=== PATIENT | female | born 2005 | race Caucasian/White ===

== ENCOUNTER 2024-09-06 11:08 | Emergency (ER) | payer OTHER, SELFPAY ==
--- OUTSIDE RECORDS SUMMARY | 2024-09-06 11:15 | XMS REPORT | Continuity of Care Document ---
Author Name Unknown Address [address] [place] [address] [facility] Address [address] [place] [address] Care Team Providers Care Clinical Data Management Manager Name Role Phone Kristopher Miramontes Primary Care Physician [phone] MARYLOU AMAYA Attending Clinician Unavailab MARYLOU Linda Attending Clinician Unavailab Marylou Linda DO Attending Clinician [phone] MARCOS DODD Attending Clinician Unavailable MARCOS DODD Attending Clinician Unavailable AKASH BERNAL Attending Clinician Unavailable Akash Bernal NP Attending Clinician [phone] LUIS CARLOS POSEY Attending Clinician Unavailable Luis Carlos Posey MD Attending Clinician [phone] Ishmael Scott Attending Clinician [phone] Joy Andrews MD Attending Clinician [phone] JOY ANDREWS Attending Clinician Unavailab SAAD Panda Attending Clinician Unavailable Saad Nance Attending Clinician [phone] Ishmael DOMÍNGUEZ Attending Clinician Unavailable LUIS CARLOS POSEY Admitting Clinician Unavailable Ishmael DOMÍNGUEZ Admitting Clinician Unavailable SAAD WATTS Admitting Clinician Unavailable Payers Payer Name Policy Type Policy Number Effective Date Expirati on Date Source [facility] [id number] 2022 00:00:00 Allergies, Adverse Reactions, Alerts Allergy Name Allergy Type Status Severity Reaction(s) Onset Date Inactive Date Treating Clinician Comments Source NO KNOWN ALLERGIE S Drug Class Active [facility] Social History Social Habit Start Date Stop Date Quantity Comments Source [facility] Exposure to SARS-CoV-2 (event) 2022-10-01 00:00:00 2022-10-11 10:02:00 Not sure [facility] Sex assigned at 2004 00:00:00 2005 00:00:00 [facility] Smoking Status Start Date Stop Date Source Tobacco smoking consumption unknown [facility] Medications Ordered Medication Name Filled Medication Name Start Date Stop Date Current Medication? Ordering Clinician Indication Dosage Frequency Signature (SIG) Comments Components Source ondansetron (ZOFRAN-ODT ) disintegrat ing tablet 4 mg 09-06 14:00: 00 09-06 13:03 :00 No 4mg 4 mg, Oral, ONCE, 1 dose, On Sat09/06/24 at 0900, Routine [facility] NaCl 0.9% (NS) IV infusion 1,000 mL 2022-05 16:45: 00 03-10 17:16 :00 No 1000mL at 999 mL/hr, Intravenou s, ONCE, 1 dose, On Sat03/10/23 at 1145, Routine [facility] dicyclomine (BENTYL) injection 20 mg 2022-05 15:00: 00 03-10 14:58 :00 No 20mg 20 mg, Intramuscu lar, ONCE NOW, 1 dose, On Sat03/10/23 at 1000, Routine [facility] NaCl 0.9% (NS) bolus infusion 1,000 mL 2022-05 15:00: 00 03-10 16:10 :00 No 1000mL at 999 mL/hr, 1,000 mL, IV Infusion, ONCE, 1 dose, On Sat03/10/23 at 1000, JUAN JOSE [facility] iopamidol (ISOVUE 370-500 mL) injection 45 mL 02-10 20:48: 00 02-10 20:48 :00 No [id number] 45mL 45 mL, Intravenou s, ONCE, 1 dose, On Sat02/10/23 at 1600, Routine [facility] NaCl 0.9% (NS) bolus infusion 1,000 mL 02-10 19:30: 00 02-10 19:51 :00 No 1000mL at 999 mL/hr, 1,000 mL, IV Infusion, ONCE, 1 dose, On Sat02/10/23 at 1430, JUAN JOSE [facility] ondansetron (ZOFRAN (PF)) injection 4 mg 02-10 19:15: 00 02-10 19:06 :00 No 4mg 4 mg, Slow IV Push, ONCE, 1 dose, On Sat02/10/23 at 1415, [facility] ondansetron 4 mg disintegrat ing tablet 02-10 00:00: 00 Yes [id number] 4mg Take 1 tablet by mouth every 8 (eight) hours as needed for Nausea and Vomiting (N/V). [facility] NaCl 0.9% (NS) bolus infusion 1,000 mL 01-15 06:30: 00 01-15 07:30 :00 No 1000mL at 999 mL/hr, 1,000 mL, IV Infusion, ONCE, 1 dose, On Sat01/15/23 at 0130, STAT [facility] ketorolac (TORADOL) injection 15 mg 01-15 06:30: 00 01-15 05:45 :00 No 15mg 15 mg, Slow IV Push, ONCE, 1 dose, On Sat01/15/23 at 0130, JUAN JOSE [facility] Nitrofurant oin&Nit. Macrocryst 100 mg capsule 01-15 00:00: 00 01-21 04:59 :00 No [id number] 100mg Take 1 capsule by mouth in the morning and 1 capsule in the evening. Do all this for 5 days. [facility] dicyclomine 20 mg tablet 01-14 00:00: 00 Yes [id number] 20mg Take 1 tablet by mouth 4 (four) times daily as needed for Abdominal pain. [facility] iopamidol (ISOVUE 300-500 mL) injection 75 mL 01-13 22:15: 00 01-13 22:15 :00 No [id number] 75mL 75 mL, Intravenou s, ONCE, 1 dose, On 01/13/23 at 1715, Routine [facility] NaCl 0.9% (NS) bolus infusion 1,000 mL 01-13 21:30: 00 01-13 23:16 :00 No 1000mL at 999 mL/hr, 1,000 mL, IV Infusion, ONCE, 1 dose, On 01/13/23 at 1630, STAT [facility] proMETHazin e (PHENERGAN) 25 mg in NaCl 0.9% (NS) 50 mL IV piggyback 01-13 20:30: 00 01-13 20:48 :00 No 25mg 25 mg, IV Piggyback, ONCE, 1 dose, On 01/13/23 at 1530, JUAN JOSE [facility] proMETHazin e 25 mg tablet 01-13 00:00: 00 Yes [id number] 25mg Take 1 tablet by mouth every 6 (six) hours as needed for Nausea and Vomiting (N/V). [facility] iopamidol (ISOVUE 370-500 mL) injection 100 mL 11-18 04:15: 00 11-18 04:15 :00 No [id number] 100mL 100 mL, Intravenou s, ONCE, 1 dose, On 11/17/22 at 2315, Routine [facility] ketorolac (TORADOL) injection 15 mg 11-18 03:15: 00 11-18 02:20 :00 No 15mg 15 mg, Slow IV Push, ONCE, 1 dose, On 11/17/22 at 2215, JUAN JOSE [facility] morpHINE (2 mg/mL) injection 4 mg 11-18 02:00: 00 11-18 02:00 :00 No 4mg 4 mg, Slow IV Push, ONCE, 1 dose, On 11/17/22 at 2100, STAT [facility] NaCl 0.9% (NS) bolus infusion 1,000 mL 11-18 01:45: 00 11-18 02:18 :00 No 1000mL at 999 mL/hr, 1,000 mL, IV Infusion, ONCE, 1 dose, On 11/17/22 at 2045, STAT [facility] ondansetron (ZOFRAN (PF)) injection 4 mg 11-18 01:45: 00 11-18 00:53 :00 No 4mg 4 mg, Slow IV Push, ONCE, 1 dose, On 11/17/22 at 2045, JUAN JOSE [facility] ondansetron 4 mg disintegrat ing tablet 11-17 00:00: 00 02-10 00:00 :00 No [id number] 4mg Take 1 tablet by mouth every 8 (eight) hours as needed for Nausea and Vomiting (N/V). [facility] ketorolac (TORADOL) injection 15 mg 10-11 16:45: 00 10-11 15:52 :00 No 15mg 15 mg, Slow IV Push, ONCE, 1 dose, On Evelina 10/11/22 at 1145, JUAN JOSE [facility] NaCl 0.9% (NS) bolus infusion 1,000 mL 10-11 16:45: 00 10-11 16:12 :00 No 1000mL at 999 mL/hr, 1,000 mL, IV Infusion, ONCE, 1 dose, On Evelina 10/11/22 at 1145, STAT [facility] ondansetron (ZOFRAN-ODT ) disintegrat ing tablet 4 mg 10-11 16:15: 00 10-11 15:17 :00 No 4mg 4 mg, Oral, ONCE, 1 dose, On Evelina 10/11/22 at 1115, Routine [facility] haloperidol lactate (HALDOL) injection 2.5 mg 18 15:45: 00 10-11 15:53 :00 No 2.5mg 2.5 mg, Intravenou s, ONCE, 1 dose, On Evelina 10/11/22 at 1045, [facility] haloperidol lactate (HALDOL) injection 2.5 mg 07-27 05:45: 00 07-27 05:38 :00 No 2.5mg 2.5 mg, Intravenou s, ONCE, 1 dose, On Evelina 07/26/22 at 2345, [facility] metoclopram yeimi HCl (REGLAN) injection 10 mg 07-27 05:45: 00 07-27 05:38 :00 No 10mg 10 mg, Slow IV Push, ONCE, 1 dose, On Evelina 07/26/22 at 2345, [facility] NaCl 0.9% (NS) bolus infusion 1,000 mL 07-27 05:30: 00 07-27 07:07 :00 No 1000mL at 999 mL/hr, 1,000 mL, IV Infusion, ONCE, 1 dose, On Evelina 07/26/22 at 2330, [facility] ondansetron (ZOFRAN (PF)) injection 4 mg 07-27 05:00: 00 07-27 05:00 :00 No 4mg 4 mg, Slow IV Push, ONCE, 1 dose, On Evelina 07/26/22 at 2300, [facility] Vital Signs Vital Name Observation Time Observation Value Comments S ource Systolic blood pressure 2024-09-06 12:59:00 140 [facility]Hg[facility] Di[facility] blood pressure 2024-09-06 12:59:00 78 mm[Hg] [facility] Heart rate 2024-09-06 12:59:00 72 /min [facility] Body temperature 2024-09-06 12:59:00 36.5 Ronna [facility] Respiratory rate 2024-09-06 12:59:00 16 /min [facility] Oxygen saturation in Arterial blood by Pulse oximetry 2024-09-06 12:59:00 100 /min [facility] Systolic blood pressure 2023-03-10 17:00:00 100 mm[Hg] [facility] Diastolic blood pressure 2023-03-10 17:00:00 72 mm[Hg] [facility] Heart rate 2023-03-10 17:00:00 60 /min [facility] Body temperature 2023-03-10 17:00:00 37.5 Ronna [facility] Respiratory rate 2023-03-10 17:00:00 18 /min [facility] Oxygen saturation in Arterial blood by Pulse oximetry 2023-03-10 17:00:00 99 /min [facility] Body height 2023-03-10 13:25:00 170.2 cm [facility] Body weight 2023-03-10 13:25:00 52.164 kg [facility] BMI 2023-03-10 13:25:00 18.01 kg/m2 [facility] Body mass index (BMI) [Percentile] Per age and sex 2023-03-10 13:25:00 7.10 % [facility] Systolic blood pressure 2023-02-10 20:00:00 142 mm[Hg] [facility] Diastolic blood pressure 2023-02-10 20:00:00 96 mm[Hg] [facility] Heart rate 2023-02-10 20:00:00 94 /min [facility] Respiratory rate 2023-02-10 20:00:00 19 /min [facility] Oxygen saturation in Arterial blood by Pulse oximetry 2023-02-10 20:00:00 99 /min [facility] Body temperature 2023-02-10 18:00:00 36.94 Ronna [facility] Body height 2023-02-10 18:00:00 175.3 cm [facility] Body weight 2023-02-10 18:00:00 54.341 kg [facility] BMI 2023-02-10 18:00:00 17.69 kg/m2 [facility] Body mass index (BMI) [Percentile] Per age and sex 2023-02-10 18:00:00 4.99 % [facility] Systolic blood pressure 2023-01-15 09:00:00 105 mm[Hg] [facility] Diastolic blood pressure 2023-01-15 09:00:00 60 mm[Hg] [facility] Heart rate 2023-01-15 09:00:00 52 /min [facility] Respiratory rate 2023-01-15 09:00:00 22 /min [facility] Oxygen saturation in Arterial blood by Pulse oximetry 2023-01-15 09:00:00 99 /min [facility] Body temperature 2023-01-15 04:14:00 37.28 Ronna [facility] Body height 2023-01-15 04:14:00 175.3 cm [facility] Body weight 2023-01-15 04:14:00 52.799 kg [facility] BMI 2023-01-15 04:14:00 17.19 kg/m2 [facility] Body mass index (BMI) [Percentile] Per age and sex 2023-01-15 04:14:00 2.55 % [facility] Systolic blood pressure 2023-01-14 16:45:00 123 mm[Hg] [facility] Diastolic blood pressure 2023-01-14 16:45:00 73 mm[Hg] [facility] Heart rate 2023-01-14 16:45:00 57 /min [facility] Body temperature 2023-01-14 16:45:00 37.33 Ronna [facility] Respiratory rate 2023-01-14 16:45:00 14 /min [facility] Body height 2023-01-14 16:45:00 175.3 cm [facility] Body weight 2023-01-14 16:45:00 58.968 kg [facility] BMI 2023-01-14 16:45:00 19.20 kg/m2 [facility] Body mass index (BMI) [Percentile] Per age and sex 2023-01-14 16:45:00 19.85 % [facility] Oxygen saturation in Arterial blood by Pulse oximetry 2023-01-14 16:45:00 99 /min [facility] Systolic blood pressure 2023-01-14 00:00:00 114 mm[Hg] [facility] Diastolic blood pressure 2023-01-14 00:00:00 67 mm[Hg] [facility] Heart rate 2023-01-14 00:00:00 57 /min [facility] Respiratory rate 2023-01-14 00:00:00 16 /min [facility] Oxygen saturation in Arterial blood by Pulse oximetry 2023-01-14 00:00:00 98 /min [facility] Body temperature 2023-01-13 19:34:00 36.5 Ronna [facility] Body height 2023-01-13 19:34:00 175.3 cm [facility] Body weight 2023-01-13 19:34:00 58.968 kg [facility] BMI 2023-01-13 19:34:00 19.20 kg/m2 [facility] Body mass index (BMI) [Percentile] Per age and sex 2023-01-13 19:34:00 19.86 % [facility] Systolic blood pressure 2022-11-18 04:10:00 98 mm[Hg] [facility] Diastolic blood pressure 2022-11-18 04:10:00 61 mm[Hg] [facility] Heart rate 2022-11-18 04:10:00 71 /min [facility] Body temperature 2022-11-18 04:10:00 37 Ronna [facility] Oxygen saturation in Arterial blood by Pulse oximetry 2022-11-18 04:10:00 97 /min [facility] Respiratory rate 2022-11-18 02:22:00 16 /min [facility] Body weight 2022-11-17 23:13:00 63.504 kg [facility] Systolic blood pressure 2022-10-11 16:12:00 133 mm[Hg] [facility] Diastolic blood pressure 2022-10-11 16:12:00 95 mm[Hg] [facility] Heart rate 2022-10-11 16:12:00 84 /min [facility] Respiratory rate 2022-10-11 16:12:00 16 /min [facility] Oxygen saturation in Arterial blood by Pulse oximetry 2022-10-11 16:12:00 98 /min [facility] Body temperature 2022-10-11 15:05:00 37 Ronna [facility] Body height 2022-10-11 15:05:00 175.3 cm [facility] Body weight 2022-10-11 15:05:00 63.504 kg [facility] BMI 2022-10-11 15:05:00 20.67 kg/m2 [facility] Body mass index (BMI) [Percentile] Per age and sex 2022-10-11 15:05:00 40.96 % [facility] Systolic blood pressure 2022-07-27 07:00:00 110 mm[Hg] [facility] Diastolic blood pressure 2022-07-27 07:00:00 68 mm[Hg] [facility] Heart rate 2022-07-27 07:00:00 60 /min [facility] Body temperature 2022-07-27 07:00:00 37.28 Ronna [facility] Respiratory rate 2022-07-27 07:00:00 17 /min [facility] Oxygen saturation in Arterial blood by Pulse oximetry 2022-07-27 07:00:00 96 /min [facility] Body height 2022-07-27 04:37:00 175.3 cm [facility] Body weight 2022-07-27 04:37:00 56.337 kg [facility] BMI 2022-07-27 04:37:00 18.34 kg/m2 [facility] Body mass index (BMI) [Percentile] Per age and sex 2022-07-27 04:37:00 11.37 % [facility] Procedures Procedure Date / Time Performed Performing Clinician Source HB ECG ROUTINE & RHYTHM STRIP 2023-03-10 15:10:56 Akash Bernal [facility] URINALYSIS 2023-03-10 14:53:00 Akash Bernal [facility] POCT TEST 2023-03-10 14:53:00 Akash Bernal [facility] URINE DRUG (IMMUNOASSAY) - COMPREHENSIVE DRUG SCREEN W/O REFLEX 2023-03-10 14:53:00 Akash Bernal [facility] AC ABG + LACTIC ACID 2023-03-10 14:36:00 Selina Bernal [facility] CREATINE KINASE 2023-03-10 14:25:00 Akash Bernal U [facility] LIPASE 2023-03-10 14:25:00 Akash Bernal [facility] COMP. METABOLIC PANEL ([id number]) 2023-03-10 14:25:00 Akash Bernal [facility] CBC WITH DIFF 2023-03-10 14:25:00 Akash Bernal [facility] CONSENT/REFUSAL FOR DIAGNOSIS AND TREATMENT 2023-03-10 13:19:54 Doctor Unassigned, [place] [facility] US OVARY TORSION 2023-02-10 22:25:00 Luis Carlos Posey [facility] CT ABDOMEN PELVIS W CONTRAST 2023-02-10 20:53:59 Luis Carlos Posey [facility] URINE DRUG (IMMUNOASSAY) - COMPREHENSIVE DRUG SCREEN 2023-02-10 20:28:00 Luis Carlos Posey [facility] URINALYSIS 2023-02-10 20:28:00 Luis Carlos [facility] TEST, SERUM 2023-02-10 19:51:00 Luis Carlos Posey [facility] COMP. METABOLIC PANEL ([id number]) 2023-02-10 18:57:00 Luis Carlos Posey [facility] CBC WITH DIFF 2023-02-10 18:57:00 Luis Carlos Posey [facility] CONSENT/REFUSAL FOR DIAGNOSIS AND TREATMENT 2023-02-10 17:57:28 Doctor Unassigned, [place] [facility] US OVARY TORSION 2023-01-15 08:49:25 Ishmael Domínguez [facility] COMP. METABOLIC PANEL ([id number]) 2023-01-15 05:37:00 Ishmael Domínguez [facility] CBC WITH DIFF 2023-01-15 05:37:00 Ishmael Domínguez [facility] URINALYSIS 2023-01-15 05:37:00 [facility] CONSENT/REFUSAL FOR DIAGNOSIS AND TREATMENT 2023-01-15 04:02:38 Doctor Unassigned, [place] [facility] CONSENT/REFUSAL FOR DIAGNOSIS AND TREATMENT 2023-01-14 17:36:09 Doctor Unassigned, [place] [facility] CONSENT/REFUSAL FOR DIAGNOSIS AND TREATMENT 2023-01-14 16:41:53 Doctor Unassigned, [place] [facility] CT ABDOMEN PELVIS W CONTRAST 2023-01-13 21:22:33 Saad Watts [facility] URINALYSIS 2023-01-13 20:48:00 Saad [facility] POCT TEST 2023-01-13 20:47:00 Saad Watts [facility] LIPASE 2023-01-13 20:39:00 Saad [facility] COMP. METABOLIC PANEL ([id number]) 2023-01-13 20:39:00 Saad Watts [facility] CBC WITH DIFF 2023-01-13 20:39:00 Saad Watts [facility] CONSENT/REFUSAL FOR DIAGNOSIS AND TREATMENT 2023-01-13 19:21:26 Doctor Unassigned, [place] [facility] CT ABDOMEN PELVIS W CONTRAST 2022-11-18 03:17:05 Ishmael Domínguez [facility] XR CHEST 1 VW 2022-11-18 03:08:22 Ishmael Domínguez [facility] POCT TEST 2022-11-18 01:00:00 Ishmael Domínguez e [facility] MAGNESIUM 2022-11-18 00:47:00 [facility] COMP. METABOLIC PANEL ([id number]) 2022-11-18 00:47:00 Ishmael Domínguez [facility] CBC WITH DIFF 2022-11-18 00:47:00 JoeyIshmael arango Univ [facility] URINALYSIS 2022-11-18 00:47:00 Ishmael Domínguez [facility] LIPASE 2022-11-18 00:47:00 Ishmael Domínguez [facility] CONSENT/REFUSAL FOR DIAGNOSIS AND TREATMENT 2022-11-17 23:10:12 Doctor Unassigned, [place] [facility] CBC WITH DIFF 2022-10-11 15:44:00 Ishmael Domínguez [facility] POCT TEST 2022-10-11 15:13:00 Ishmael Domínguez [facility] URINALYSIS 2022-10-11 15:12:00 Ishmeal Domíngueze [facility] CONSENT/REFUSAL FOR DIAGNOSIS AND TREATMENT 2022-10-11 14:57:40 Doctor Unassigned, [place] [facility] POCT TEST 2022-07-27 06:05:00 Esme Amaya ra [facility] URINALYSIS 2022-07-27 06:03:00 [facility]REATMENT 2022-07-27 04:23:13 Doctor Unassigned, [place] [facility] NOTICE OF PRIVACY PRACTICES 2022-07-27 04:22:45 Doctor Unassigned, [place] [facility] Encounters Start Date/Time End Date/Time Encounter Type Admission Type Attending [facility] Care Facility Care Department Encounter ID Source 2024-09-06 08:00:00 2024-09-06 09:27:00 Emergency X MARYLOU AMAYA [facility] [id number] [facility] 2024-09-06 08:00:00 2024-09-06 09:27:00 Emergency Marylou Amaya AT [facility] [id number] 350.1.13.10 4.2.7.2.686 [id number] [facility] 2024-08-06 12:50:00 2024-08-06 14:44:00 Emergency X MARCOS DODD ERICCA [facility] ERT [id number] [facility] 2023-03-10 08:26:00 2023-03-10 12:18:00 Emergency X AKASH BERNAL [facility] ERT [id number] [facility] 2023-03-10 08:26:00 2023-03-10 12:18:00 Emergency Akash Bernal [facility] [id number] 350.1.13.10 4.2.7.2.686 [id number] [facility] 2023-02-10 13:02:00 2023-02-10 18:18:00 Emergency X LUIS CARLOS POSEY [facility] ERT [id number] [facility] 2023-02-10 13:02:00 2023-02-10 18:18:00 Emergency Luis Carlos Posey [facility] [id number] 350.1.13.10 4.2.7.2.686 [id number] [facility] 2023-01-14 23:18:00 2023-01-15 04:40:00 Emergency Ishmael Dom[facility]nguez [facility] [id number] 350.1.13.10 4.2.7.2.686 [id number] [facility] 2023-01-14 23:18:00 2023-01-15 04:40:00 Emergency X JOY ANDREWS [facility] ERT [id number] [facility] 2023-01-14 11:48:00 2023-01-14 13:39:00 Emergency X SAAD WATTS [facility] ERT [id number] [facility] 2023-01-14 11:48:00 2023-01-14 13:39:00 Emergency Saad Watts [facility] [id number] 350.1.13.10 4.2.7.2.686 [id number] [facility] 2023-01-13 14:37:00 2023-01-13 19:09:00 Emergency X SAAD WATTS [facility] ERT [id number] [facility] 2023-01-13 14:37:00 2023-01-13 19:09:00 Emergency Saad Watts S [facility] [id number] 350.1.13.10 4.2.7.2.686 [id number] [facility] 2022-11-17 18:15:00 2022-11-17 23:22:00 Emergency X Ishmael DOMÍNGUEZ [facility] ERT [id number] [facility] 2022-11-17 18:15:00 2022-11-17 23:22:00 Emergency Ishmael Domínguez [facility] 1.2840.114 350.1.13.10 4.2.7.2.686 [id number] [facility] 2022-10-11 10:09:00 2022-10-11 11:41:00 Emergency X Ishmael DOMÍNGUEZ [facility] ERT [id number] [facility] 2022-10-11 10:09:00 2022-10-11 11:41:00 Emergency Ishmael Domínguez [facility] [id number] 350.1.13.10 4.2.7.2.686 [id number] [facility] 2022-07-26 22:43:00 2022-07-27 01:14:00 Emergency X MARYLOU AMAYA [facility] ERT [id number] [facility] 2022-07-26 22:43:00 2022-07-27 01:14:00 Emergency Marylou Amaya [facility] [id number] 350.1.13.10 4.2.7.2.686 [id number] [id number] [facility] Results Test Description Test Time Test Comments Results Result Co mments Source [facility]53* Test Item Value Reference Range Interpretation Comme nts LIPASE (test code = 7861600432) 48 U/L 0-220 Lab Interpretation (test cod e = 93270-9) Normal [facility] [id number] 14:56:53* Test Item Value Reference Range Interpretation Comme nts CK (test code = 8555286284) 58 U/L 33-194 Lab Interpretation (test cod e = 73309-8) [facility] [id number] 14:53:00* Test Item Value Reference Range Interpretation Comme nts POCT PREG (test code = 1605) Negative On board controls acceptable with C Line (test code = 3574) Yes POCT PREG LOT # (test code = 3575) [id number] POCT PREG TEST DATE ( test code = 3576) 05/29/2024 Lab Interpretation (test cod e = 52557-5) [facility] [id number] 14:43:54* Test Item Value Reference Range Interpretation Comme nts WBC (test code = 6690-2) 14.74 See_Comment H [Automated message] The system which generated this result transmitted reference range: 4.50 - 13.50 10*3/?L. The reference range was not used to interpret this result as normal/abnormal. RBC (test code = 789-8) 4.09 See_Comment L [Automated message] The system which generated this result transmitted reference range: 4.10 - 5.10 10*6/?L. The reference range was not used to interpret this result as normal/abnormal. HGB (test code = 718-7) 13.4 g/dL 12.0-16.0 HCT (test code = 4544-3) 39.2 % 36.0-45.0 MCV (test code = 787-2) 95.8 fL 78.0-95.0 H MCH (test code = 785-6) 32.8 pg 26.0-32.0 H MCHC (test code = 786-4) 34.2 g/dL 32.0-36.0 RDW-SD (test code = 89003-6) 41.4 fL 38.5-49.0 RDW-CV (test code = 788-0) 11.8 % 11.5-14.0 PLT (test code = 777-3) 304 See_Comment [Automated message] The system which generated this result transmitted reference range: 135 - 361 10*3/?L. The reference range was not used to interpret this result as normal/abnormal. MPV (test code = 27526-2) 10.9 fL 9.4-13.3 NRBC/100 WBC (test code = 1015310515) 0.0 See_Comment [Automated message] The system which generated this result transmitted reference range: 0.0 - 10.0 /100 WBCs. The reference range was not used to interpret this result as normal/abnormal. NRBC x10^3 (test code = 7791176408) See_Comment [Automated message] The system which generated this result transmitted reference range: 10*3/?L. The reference range was not used to interpret this result as normal/abnormal. GRAN MAT (NEUT) % (test code = 770-8) 90.8 % IMM GRAN % (test code = 5520201305) 0.30 % LYMPH % (test code = 736-9) 5.3 % MONO % (test code = 5905-5) 3.3 % EOS % (test code = 713-8) 0.0 % BASO % (test code = 706-2) 0.3 % GRAN MAT x10^3(ANC) (test code = 5747249247) 13.38 10*3/uL 1.50-10.30 H IMM GRAN x10^3 (test code = 7886032749) 0.05 10*3/uL 0.00-0.06 LYMPH x10^3 (test code = 731-0) 0.78 10*3/uL 0.70-7.40 MONO x10^3 (test code = 742-7) 0.49 10*3/uL 0.00-0.50 EOS x10^3 (test code = 711-2) 0.00-0.40 BASO x10^3 (test code = 704-7) 0.04 10*3/uL 0.00-0.10 Lab Interpretation (test code = 20693-7) [facility] [id number] 20:11:53* Test Item Value Reference Range Interpretation Comme nts PREG SERUM (test code = 4645807763) Negative BREANNA (test code = BREANNA) Less than 10 IU/L. ?If low titer or ectopic is suspected, resubmit specimen in 48-72 hours. [facility]. METABOLIC PANEL ([id number])2023-02-10 19:31:01* Test Item Value Reference Range Interpretation Comme nts NA (test code = 7170150753) 140 mmol/L 135-145 K (test code = 3901552417) 4.0 mmol/L 3.5-5.0 CL (test code = 7707524235) 111 mmol/L 98-108 H CO2 TOTAL (test code = 2989138029) 17 mmol/L 23-31 L AGAP (test code = 4853913445) 12 2-16 BUN (test code = 1615926157) 8 mg/dL 7-23 GLUCOSE (test code = 4830311640) 136 mg/dL 70-110 H CREATININE (test code = 1604495291) 0.70 mg/dL 0.50-1.04 TOTAL BILI (test code = 7650118394) 0.3 mg/dL 0.1-1.1 CALCIUM (test code = 6900886743) 9.8 mg/dL 8.6-10.6 T PROTEIN (test code = 8492749563) 8.0 g/dL 6.3-8.2 ALBUMIN (test code = 7496314560) 4.7 g/dL 3.5-5.0 ALK PHOS (test code = 1919431154) 92 U/L 34-122 ALTv (test code = 1742-6) 17 U/L 5-35 AST(SGOT) (test code = 3370875267) 26 U/L 13-40 eGFR (test code = 4939048219) 109.0 mL/min/1.73m2 BREANNA (test code = BREANNA) Association of Glomerular Filtration Rate (GFR) and Staging of Kidney Disease* + --+ --+ ------+| GFR (mL/min/1.73 m2) ?| With Kidney Damage ?| ?Without Kidney Damage+ --------+ --------+ +| ?>90 ?| ?Stage one ?| ? Normal ?+ ---+ ---+ -------+| ?60-89 ?| ?Stage two ?| ? Decreased GFR ? + --+ --+ ------+| ?30-59 ?| ?Stage three ?| ? Stage three ? + --+ --+ ------+| ?15-29 ?| ?Stage four ? | ? Stage four ?+ ---+ ---+ -------+| ?<15 (or dialysis) ? ?| ?Stage five ? | ? Stage five ?+ ---+ ---+ -------+ *Each stage assumes the associated GFR level has been in effect for at least three months. ?Stages 1 to 5, with or without kidney disease, indicate chronic kidney disease. Notes: Determination of stages one and two (with eGFR >59mL/min/1.73 m2) requires estimation of kidney damage for at least three months as defined by structural or functional abnormalities of the kidney, manifested by either:Pathological abnormalities or Markers of kidney damage (including abnormalities in the composition of the blood or urine or abnormalities in imaging tests). Lab Interpretation (test code = 29853-0) Abnormal [facility] WITH [id number] 19:20:02* Test Item Value Reference Range Interpretation Comme nts WBC (test code = 6690-2) 13.47 See_Comment [Automated message] The system which generated this result transmitted reference range: 4.50 - 13.50 10*3/?L. The reference range was not used to interpret this result as normal/abnormal. RBC (test code = 789-8) 4.46 See_Comment [Automated message] The system which generated this result transmitted reference range: 4.10 - 5.10 10*6/?L. The reference range was not used to interpret this result as normal/abnormal. HGB (test code = 718-7) 14.6 g/dL 12.0-16.0 HCT (test code = 4544-3) 42.4 % 36.0-45.0 MCV (test code = 787-2) 95.1 fL 78.0-95.0 H MCH (test code = 785-6) 32.7 pg 26.0-32.0 H MCHC (test code = 786-4) 34.4 g/dL 32.0-36.0 RDW-SD (test code = 07910-2) 42.3 fL 38.5-49.0 RDW-CV (test code = 788-0) 12.0 % 11.5-14.0 PLT (test code = 777-3) 315 See_Comment [Automated message] The system which generated this result transmitted reference range: 135 - 361 10*3/?L. The reference range was not used to interpret this result as normal/abnormal. MPV (test code = 30636-5) 10.3 fL 9.4-13.3 NRBC/100 WBC (test code = 8231886344) 0.0 See_Comment [Automated message] The system which generated this result transmitted reference range: 0.0 - 10.0 /100 WBCs. The reference range was not used to interpret this result as normal/abnormal. NRBC x10^3 (test code = 6287109084) See_Comment [Automated message] The system which generated this result transmitted reference range: 10*3/?L. The reference range was not used to interpret this result as normal/abnormal. GRAN MAT (NEUT) % (test code = 770-8) 78.0 % IMM GRAN % (test code = 0361213995) 0.40 % LYMPH % (test code = 736-9) 14.7 % MONO % (test code = 5905-5) 6.4 % EOS % (test code = 713-8) 0.2 % BASO % (test code = 706-2) 0.3 % GRAN MAT x10^3(ANC) (test code = 1988682769) 10.50 10*3/uL 1.50-10.30 H IMM GRAN x10^3 (test code = 1999251972) 0.06 10*3/uL 0.00-0.06 LYMPH x10^3 (test code = 731-0) 1.98 10*3/uL 0.70-7.40 MONO x10^3 (test code = 742-7) 0.86 10*3/uL 0.00-0.50 H EOS x10^3 (test code = 711-2) 0.03 10*3/uL 0.00-0.40 BASO x10^3 (test code = 704-7) 0.04 10*3/uL 0.00-0.10 Lab Interpretation (test code = 19857-0) [facility] ([id number])2023-01-15 06:02:07* Test Item Value Reference Range Interpretation Comme nts NA (test code = 5367519351) 143 mmol/L 135-145 K (test code = 1786709349) 3.7 mmol/L 3.5-5.0 CL (test code = 2776027860) 104 mmol/L 98-108 CO2 TOTAL (test code = 1822467761) 29 mmol/L 23-31 AGAP (test code = 5502248581) 10 2-16 BUN (test code = 0373637702) 19 mg/dL 7-23 GLUCOSE (test code = 6808303746) 104 mg/dL 70-110 CREATININE (test code = 9520836347) 0.80 mg/dL 0.50-1.04 TOTAL BILI (test code = 6287525206) 0.4 mg/dL 0.1-1.1 CALCIUM (test code = 4697768044) 9.6 mg/dL 8.6-10.6 T PROTEIN (test code = 0793933794) 7.7 g/dL 6.3-8.2 ALBUMIN (test code = 8109945944) 4.6 g/dL 3.5-5.0 ALK PHOS (test code = 3357092617) 59 U/L 34-122 ALTv (test code = 1742-6) 17 U/L 5-35 AST(SGOT) (test code = 7676098523) 24 U/L 13-40 eGFR (test code = 8096800583) 93.4 mL/min/1.73m2 BREANNA (test code = BREANNA) Association of Glomerular Filtration Rate (GFR) and Staging of Kidney Disease* + + +- +| GFR (mL/min/1.73 m2) ?| With Kidney Damage ?| ?Without Kidney Damage+ ------+ ----+ ------+| ?>90 ?| ?Stage one ?| ? Normal ?+ -+ + -+| ?60-89 ?| ?Stage two ?| ? Decreased GFR ? + + +- +| ?30-59 ?| ?Stage three ?| ? Stage three ? + + +- +| ?15-29 ?| ?Stage four ? | ? Stage four ?+ -+ + -+| ?<15 (or dialysis) ? ?| ?Stage five ? | ? Stage five ?+ -+ + -+ *Each stage assumes the associated GFR level has been in effect for at least three months. ?Stages 1 to 5, with or without kidney disease, indicate chronic kidney disease. Notes: Determination of stages one and two (with eGFR >59mL/min/1.73 m2) requires estimation of kidney damage for at least three months as defined by structural or functional abnormalities of the kidney, manifested by either:Pathological abnormalities or Markers of kidney damage (including abnormalities in the composition of the blood or urine or abnormalities in imaging tests). [facility] WITH [id number] 05:49:10* Test Item Value Reference Range Interpretation Comme nts WBC (test code = 6690-2) 10.32 See_Comment [Automated KSE] The system which generated this result transmitted reference range: 4.50 - 13.50 10*3/?L. The reference range was not used to interpret this result as normal/abnormal. RBC (test code = 789-8) 4.03 See_Comment L [Automated KSE] The system which generated this result transmitted reference range: 4.10 - 5.10 10*6/?L. The reference range was not used to interpret this result as normal/abnormal. HGB (test code = 718-7) 13.2 g/dL 12.0-16.0 HCT (test code = 4544-3) 38.8 % 36.0-45.0 MCV (test code = 787-2) 96.3 fL 78.0-95.0 H MCH (test code = 785-6) 32.8 pg 26.0-32.0 H MCHC (test code = 786-4) 34.0 g/dL 32.0-36.0 RDW-SD (test code = 29928-3) 43.1 fL 38.5-49.0 RDW-CV (test code = 788-0) 12.2 % 11.5-14.0 PLT (test code = 777-3) 269 See_Comment [Automated messa ge] The system which generated this result transmitted reference range: 135 - 361 10*3/?L. The reference range was not used to interpret this result as normal/abnormal. MPV (test code = 56948-2) 10.2 fL 9.4-13.3 NRBC/100 WBC (test code = 3726401762) 0.0 See_Comment [Automated iPrint ssage] The system which generated this result transmitted reference range: 0.0 - 10.0 /100 WBCs. The reference range was not used to interpret this result as normal/abnormal. NRBC x10^3 (test code = 5168837603) See_Comment [Automated messa ge] The system which generated this result transmitted reference range: 10*3/?L. The reference range was not used to interpret this result as normal/abnormal. GRAN MAT (NEUT) % (test code = 770-8) 76.5 % IMM GRAN % (test code = 2976582742) 0.30 % LYMPH % (test code = 736-9) 14.8 % MONO % (test code = 5905-5) 8.2 % EOS % (test code = 713-8) 0.0 % BASO % (test code = 706-2) 0.2 % GRAN MAT x10^3(ANC) (test code = 4863210267) 7.89 10*3/uL 1.50-10.30 IMM GRAN x10^3 (test code = 2721315650) 0.03 10*3/uL 0.00-0.06 LYMPH x10^3 (test code = 731-0) 1.53 10*3/uL 0.70-7.40 MONO x10^3 (test code = 742-7) 0.85 10*3/uL 0.00-0.50 H EOS x10^3 (test code = 711-2) 0.00-0.40 BASO x10^3 (test code = 704-7) 0.00-0.10 Lab Interpretation (test code = 83679-7) [facility] ([id number])2023-01-13 21:14:31* Test Item Value Reference Range Interpretation Comme nts NA (test code = 7920548670) 142 mmol/L 135-145 K (test code = 2087024101) 3.3 mmol/L 3.5-5.0 L CL (test code = 1200120146) 105 mmol/L 98-108 CO2 TOTAL (test code = 9981492653) 18 mmol/L 23-31 L AGAP (test code = 9380353078) 19 2-16 H BUN (test code = 5685839423) 14 mg/dL 7-23 GLUCOSE (test code = 0389035721) 161 mg/dL 70-110 H CREATININE (test code = 6582837240) 0.72 mg/dL 0.50-1.04 TOTAL BILI (test code = 2050501550) 0.6 mg/dL 0.1-1.1 CALCIUM (test code = 6520129026) 10.4 mg/dL 8.6-10.6 T PROTEIN (test code = 5195775291) 8.4 g/dL 6.3-8.2 H ALBUMIN (test code = 3425580553) 4.9 g/dL 3.5-5.0 ALK PHOS (test code = 7797363401) 72 U/L 34-122 ALTv (test code = 1742-6) 33 U/L 5-35 AST(SGOT) (test code = 2878038915) 26 U/L 13-40 eGFR (test code = 3135526068) 105.5 mL/min/1.73m2 BREANNA (test code = BREANNA) Association of Glomerular Filtration Rate (GFR) and Staging of Kidney Disease* + --+ --+ ------+| GFR (mL/min/1.73 m2) ?| With Kidney Damage ?| ?Without Kidney Damage+ --------+ --------+ +| ?>90 ?| ?Stage one ?| ? Normal ?+ ---+ ---+ -------+| ?60-89 ?| ?Stage two ?| ? Decreased GFR ? + --+ --+ ------+| ?30-59 ?| ?Stage three ?| ? Stage three ? + --+ --+ ------+| ?15-29 ?| ?Stage four ? | ? Stage four ?+ ---+ ---+ -------+| ?<15 (or dialysis) ? ?| ?Stage five ? | ? Stage five ?+ ---+ ---+ -------+ *Each stage assumes the associated GFR level has been in effect for at least three months. ?Stages 1 to 5, with or without kidney disease, indicate chronic kidney disease. Notes: Determination of stages one and two (with eGFR >59mL/min/1.73 m2) requires estimation of kidney damage for at least three months as defined by structural or functional abnormalities of the kidney, manifested by either:Pathological abnormalities or Markers of kidney damage (including abnormalities in the composition of the blood or urine or abnormalities in imaging tests). Lab Interpretation (test code = 75397-4) [facility]:06:28* Test Item Value Reference Range Interpretation Comme nts LIPASE (test code = 8674782566) 28 U/L 0-220 Lab Interpretation (test cod e = 65999-1) [facility] [id number] 20:55:10* Test Item Value Reference Range Interpretation Comme nts WBC (test code = 6690-2) 12.10 See_Comment [Automated message] The system which generated this result transmitted reference range: 4.50 - 13.50 10*3/?L. The reference range was not used to interpret this result as normal/abnormal. RBC (test code = 789-8) 4.19 See_Comment [Automated message] The system which generated this result transmitted reference range: 4.10 - 5.10 10*6/?L. The reference range was not used to interpret this result as normal/abnormal. HGB (test code = 718-7) 13.7 g/dL 12.0-16.0 HCT (test code = 4544-3) 38.6 % 36.0-45.0 MCV (test code = 787-2) 92.1 fL 78.0-95.0 MCH (test code = 785-6) 32.7 pg 26.0-32.0 H MCHC (test code = 786-4) 35.5 g/dL 32.0-36.0 RDW-SD (test code = 00847-4) 40.0 fL 38.5-49.0 RDW-CV (test code = 788-0) 12.0 % 11.5-14.0 PLT (test code = 777-3) 308 See_Comment [Automated message] The system which generated this result transmitted reference range: 135 - 361 10*3/?L. The reference range was not used to interpret this result as normal/abnormal. MPV (test code = 16526-7) 10.8 fL 9.4-13.3 NRBC/100 WBC (test code = 3978932549) 0.0 See_Comment [Automated message] The system which generated this result transmitted reference range: 0.0 - 10.0 /100 WBCs. The reference range was not used to interpret this result as normal/abnormal. NRBC x10^3 (test code = 2046016841) See_Comment [Automated message] The system which generated this result transmitted reference range: 10*3/?L. The reference range was not used to interpret this result as normal/abnormal. GRAN MAT (NEUT) % (test code = 770-8) 88.1 % IMM GRAN % (test code = 0147217920) 0.30 % LYMPH % (test code = 736-9) 6.7 % MONO % (test code = 5905-5) 4.7 % EOS % (test code = 713-8) 0.0 % BASO % (test code = 706-2) 0.2 % GRAN MAT x10^3(ANC) (test code = 8674177716) 10.65 10*3/uL 1.50-10.30 H IMM GRAN x10^3 (test code = 9499937424) 0.04 10*3/uL 0.00-0.06 LYMPH x10^3 (test code = 731-0) 0.81 10*3/uL 0.70-7.40 MONO x10^3 (test code = 742-7) 0.57 10*3/uL 0.00-0.50 H EOS x10^3 (test code = 711-2) 0.00-0.40 BASO x10^3 (test code = 704-7) 0.03 10*3/uL 0.00-0.10 Lab Interpretation (test code = 37104-1) [facility] [id number] 20:47:00* Test Item Value Reference Range Interpretation Comme nts POCT PREG (test code = 1605) Negative On board controls acceptable with C Line (test code = 3574) Yes POCT PREG LOT # (test code = 3575) [id number] POCT PREG TEST DATE ( test code = 3576) 2024-05-29 Lab Interpretation (test cod e = 88564-3) [facility] WITH [id number] 02:16:05* Test Item Value Reference Range Interpretation Comme nts WBC (test code = 6690-2) 17.59 See_Comment H [Automated message] The system which generated this result transmitted reference range: 4.50 - 13.50 10*3/?L. The reference range was not used to interpret this result as normal/abnormal. RBC (test code = 789-8) 4.36 See_Comment [Automated message] The system which generated this result transmitted reference range: 4.10 - 5.10 10*6/?L. The reference range was not used to interpret this result as normal/abnormal. HGB (test code = 718-7) 14.3 g/dL 12.0-16.0 HCT (test code = 4544-3) 41.7 % 36.0-45.0 MCV (test code = 787-2) 95.6 fL 78.0-95.0 H MCH (test code = 785-6) 32.8 pg 26.0-32.0 H MCHC (test code = 786-4) 34.3 g/dL 32.0-36.0 RDW-SD (test code = 14119-0) 42.6 fL 38.5-49.0 RDW-CV (test code = 788-0) 12.4 % 11.5-14.0 PLT (test code = 777-3) 339 See_Comment [Automated message] The system which generated this result transmitted reference range: 135 - 361 10*3/?L. The reference range was not used to interpret this result as normal/abnormal. MPV (test code = 94491-9) 10.8 fL 9.4-13.3 NRBC/100 WBC (test code = 5767947415) 0.0 See_Comment [Automated message] The system which generated this result transmitted reference range: 0.0 - 10.0 /100 WBCs. The reference range was not used to interpret this result as normal/abnormal. NRBC x10^3 (test code = 3284458905) See_Comment [Automated message] The system which generated this result transmitted reference range: 10*3/?L. The reference range was not used to interpret this result as normal/abnormal. GRAN MAT (NEUT) % (test code = 770-8) 88.1 % IMM GRAN % (test code = 8467305260) 0.50 % LYMPH % (test code = 736-9) 5.7 % MONO % (test code = 5905-5) 5.2 % EOS % (test code = 713-8) 0.2 % BASO % (test code = 706-2) 0.3 % GRAN MAT x10^3(ANC) (test code = 4488659602) 15.48 10*3/uL 1.50-10.30 H IMM GRAN x10^3 (test code = 6585526415) 0.08 10*3/uL 0.00-0.06 H LYMPH x10^3 (test code = 731-0) 1.01 10*3/uL 0.70-7.40 MONO x10^3 (test code = 742-7) 0.92 10*3/uL 0.00-0.50 H EOS x10^3 (test code = 711-2) 0.04 10*3/uL 0.00-0.40 BASO x10^3 (test code = 704-7) 0.06 10*3/uL 0.00-0.10 Lab Interpretation (test code = 41833-6) [facility] 01:53:23* Test Item Value Reference Range Interpretation Comme nts MAGNESIUM (test code = 6789022883) 1.8 mg/dL 1.7-2.4 Lab Interpretation (test cod e = 69042-2) [facility] (03546)2022-11-18 01:53:02* Test Item Value Reference Range Interpretation Comme nts NA (test code = 5337259344) 144 mmol/L 135-145 K (test code = 1515703087) 3.6 mmol/L 3.5-5.0 CL (test code = 2526612588) 106 mmol/L 98-108 CO2 TOTAL (test code = 5305201515) 22 mmol/L 23-31 L AGAP (test code = 6158949707) 16 2-16 BUN (test code = 4491898546) 9 mg/dL 7-23 GLUCOSE (test code = 8252306431) 146 mg/dL 70-110 H CREATININE (test code = 6390141832) 0.72 mg/dL 0.50-1.04 TOTAL BILI (test code = 7754936819) 0.7 mg/dL 0.1-1.1 CALCIUM (test code = 4242962457) 10.0 mg/dL 8.6-10.6 T PROTEIN (test code = 0571546432) 7.9 g/dL 6.3-8.2 ALBUMIN (test code = 5675005356) 4.7 g/dL 3.5-5.0 ALK PHOS (test code = 0386592362) 80 U/L 34-122 ALTv (test code = 1742-6) 18 U/L 5-35 AST(SGOT) (test code = 6635878193) 22 U/L 13-40 eGFR (test code = 3500502318) 105.5 mL/min/1.73m2 BREANNA (test code = BREANNA) Association of Glomerular Filtration Rate (GFR) and Staging of Kidney Disease* + --+ --+ ------+| GFR (mL/min/1.73 m2) ?| With Kidney Damage ?| ?Without Kidney Damage+ --------+ --------+ +| ?>90 ?| ?Stage one ?| ? Normal ?+ ---+ ---+ -------+| ?60-89 ?| ?Stage two ?| ? Decreased GFR ? + --+ --+ ------+| ?30-59 ?| ?Stage three ?| ? Stage three ? + --+ --+ ------+| ?15-29 ?| ?Stage four ? | ? Stage four ?+ ---+ ---+ -------+| ?<15 (or dialysis) ? ?| ?Stage five ? | ? Stage five ?+ ---+ ---+ -------+ *Each stage assumes the associated GFR level has been in effect for at least three months. ?Stages 1 to 5, with or without kidney disease, indicate chronic kidney disease. Notes: Determination of stages one and two (with eGFR >59mL/min/1.73 m2) requires estimation of kidney damage for at least three months as defined by structural or functional abnormalities of the kidney, manifested by either:Pathological abnormalities or Markers of kidney damage (including abnormalities in the composition of the blood or urine or abnormalities in imaging tests). Lab Interpretation (test code = 60605-4) [facility] 01:52:42* Test Item Value Reference Range Interpretation Comme nts LIPASE (test code = 5170255494) 36 U/L 0-220 Lab Interpretation (test cod e = 81584-3) [facility] [id number] 01:00:00* Test Item Value Reference Range Interpretation Comme nts POCT PREG (test code = 1605) Negative On board controls acceptable with C Line (test code = 3574) Yes Lab Interpretation (test cod e = 33545-6) [facility] [id number] 16:20:58* Test Item Value Reference Range Interpretation Comme nts WBC (test code = 6690-2) 9.56 See_Comment [Automated KSE] The system which generated this result transmitted reference range: 4.50 - 13.50 10*3/?L. The reference range was not used to interpret this result as normal/abnormal. RBC (test code = 789-8) 4.36 See_Comment [Automated KSE] The system which generated this result transmitted reference range: 4.10 - 5.10 10*6/?L. The reference range was not used to interpret this result as normal/abnormal. HGB (test code = 718-7) 14.1 g/dL 12.0-16.0 HCT (test code = 4544-3) 41.5 % 36.0-45.0 MCV (test code = 787-2) 95.2 fL 78.0-95.0 H MCH (test code = 785-6) 32.3 pg 26.0-32.0 H MCHC (test code = 786-4) 34.0 g/dL 32.0-36.0 RDW-SD (test code = 54379-4) 42.1 fL 38.5-49.0 RDW-CV (test code = 788-0) 12.1 % 11.5-14.0 PLT (test code = 777-3) 273 See_Comment [Automated messa ge] The system which generated this result transmitted reference range: 135 - 361 10*3/?L. The reference range was not used to interpret this result as normal/abnormal. MPV (test code = 08429-2) 10.6 fL 9.4-13.3 NRBC/100 WBC (test code = 5952024476) 0.0 See_Comment [Automated iPrint ssage] The system which generated this result transmitted reference range: 0.0 - 10.0 /100 WBCs. The reference range was not used to interpret this result as normal/abnormal. NRBC x10^3 (test code = 3176837777) See_Comment [Automated messa ge] The system which generated this result transmitted reference range: 10*3/?L. The reference range was not used to interpret this result as normal/abnormal. GRAN MAT (NEUT) % (test code = 770-8) 84.4 % IMM GRAN % (test code = 3277871226) 0.40 % LYMPH % (test code = 736-9) 11.7 % MONO % (test code = 5905-5) 3.2 % EOS % (test code = 713-8) 0.1 % BASO % (test code = 706-2) 0.2 % GRAN MAT x10^3(ANC) (test code = 7134687651) 8.06 10*3/uL 1.50-10.30 IMM GRAN x10^3 (test code = 7853036181) 0.04 10*3/uL 0.00-0.06 LYMPH x10^3 (test code = 731-0) 1.12 10*3/uL 0.70-7.40 MONO x10^3 (test code = 742-7) 0.31 10*3/uL 0.00-0.50 EOS x10^3 (test code = 711-2) 0.00-0.40 BASO x10^3 (test code = 704-7) 0.00-0.10 Lab Interpretation (test code = 55489-3) Abnormal [facility] [id number] 15:13:00* Test Item Value Reference Range Interpretation Comme nts POCT PREG (test code = 1605) Negative On board controls acceptable with C Line (test code = 3574) Yes POCT PREG LOT # (test code = 3575) HCG [id number] POCT PREG TEST DATE (test code = 3576) 01/02/2024 Lab Interpretation (test cod e = 28380-0) Normal [facility] [id number] 06:05:00* Test Item Value Reference Range Interpretation Comme nts POCT PREG (test code = 1605) Negative On board controls acceptable with C Line (test code = 3574) Positive POCT PREG LOT # (test code = 3575) [id number] POCT PREG TEST DATE ( test code = 3576) 08/25/2023 Lab Interpretation (test cod e = 34277-7) Normal [facility] Notes Date/Time Note Provider Source 2024-09-06 09:09:36 Pt still not in WR. Pt left before disposition T Tawanna Vicente RN [facility] 2024-09-06 08:37:58 Physician to WR with PO fluids to PO challenge and patient not found in WR. [facility] 2024-09-06 07:58:06 Patient states: "This morning I started having vomiting, chills and diarrhea" Linda Alcaraz RN [facility] 2024-09-06 07:51:00 [facility] Emergency Department Note Patient Name: Harlan Ayala Date of : 2005 19 year old female Treatment Room: TX1/TX1 Primary Care Physician: Kristopher Miramontes Patient Escorted by: Family [5] Mode of Arrival: Personal means [1] EMS Treatment Prior to ED Arrival: Travel and Exposure Screening: Symptoms Does patient have any of these symptoms?: (not recorded) Exposure Screening Has patient had contact with someone with a communicable disease in the last month?: (not recorded) Diseases exposed to:: (not recorded) Is Patient ?: (not recorded) Exposure Date: (not recorded) Chief Complaint: Chief Complaint Patient presents with Vomiting Chills History of Present Illness: The patient presents from home with her mother for evaluation for nausea, vomiting as well as diarrhea that started today. No sick contacts. No bad food exposure. No recent trips or travel or antibiotics. She denies being . No medication taken prior to arrival. Here for evaluation. Past Medical History/Immunizations: History reviewed. No pertinent past medical history. Allergies: No Known Allergies Past Social History: Substance & Sexual Activity No substance use or sexual activity history on file. Past Surgical History: History reviewed. No pertinent surgical history. Review of Systems: Review of Systems Constitutional: Negative for chills and fever. Respiratory: Negative for cough and shortness of breath. Cardiovascular: Negative for chest pain. Gastrointestinal: Positive for diarrhea, nausea and vomiting. Negative for abdominal pain. Genitourinary: Negative for dysuria. Musculoskeletal: Negative for arthralgias, neck pain and neck stiffness. Skin: Negative for wound. Neurological: Negative for dizziness. Psychiatric/Behavioral: Negative for agitation. Physical Exam: ED Triage Vitals [09/06/24 0759] Weight Actual or estimated Estimated by patient/family report Height BP (!) 140/78 Pulse 72 Resp 16 Temp 36.5 ?C (97.7 ?F) Temp source Oral SpO2 100 % Measured on Room air Physical Exam Vitals and nursing note reviewed. Constitutional: Appearance: Normal appearance. HENT: Head: Normocephalic and atraumatic. Cardiovascular: Rate and Rhythm: Normal rate. Pulses: Normal pulses. Pulmonary: Effort: Pulmonary effort is normal. No respiratory distress. Abdominal: General: There is no distension. Palpations: Abdomen is soft. Tenderness: There is no abdominal tenderness. Musculoskeletal: General: Normal range of motion. Cervical back: Neck supple. Skin: General: Skin is warm and dry. Neurological: General: No focal deficit present. Mental Status: She is alert and oriented to person, place, and time. Radiology: No orders to display Lab Results: Lab Results - No data to display EKG: If EKG completed, see Procedure Note. Orders and Treatments: Orders Placed This Encounter Procedures POCT TEST Orders Placed This Encounter Medications ondansetron (ZOFRAN-ODT) disintegrating tablet 4 mg First Provider Eval: ED Events Date/Time Event User Comments 09/06/24752 Medical Screening Begins MARYLOU AMAYA DO -- 09/06/24752 First Provider Evaluation MARYLOU AMAYA DO -- ED COURSE Diagnosis/Impression as of 09/06/24 0910 Nausea and vomiting, unspecified vomiting type Procedures: Procedures MDM: Medical Decision Making The patient presents from home with her mother for evaluation for nausea, vomiting as well as diarrhea that started today. No sick contacts. No bad food exposure. No recent trips or travel or antibiotics. She denies being . No medication taken prior to arrival. Vital signs are stable in the ER. She has dry mucous membranes on examination. Her abdomen is soft and nontender. Will check a test. Offered the patient Zofran ODT versus IV Zofran and she does prefer to try the ODT tablet. Anticipate discharge home later when she is able to tolerate by mouth. 09 - several attempts were made to locate the patient for reevaluation however she could not be found. She apparently left the ER without notifying staff. Problems Addressed: Nausea and vomiting, unspecified vomiting type: acute illness or injury Amount and/or Complexity of Data Reviewed Labs: ordered. Decision-making details documented in ED Course. Risk Prescription drug management. Flowsheet Documentation: Scoring Tools: No data recorded Disposition/Condition: ED Disposition ED Disposition Elope - Before Dispo Condition Stable Comment -- Discharge Medications: Patient's Medications START taking these medications No medications on file CONTINUE taking these medications which have NOT CHANGED DICYCLOMINE 20 MG TABLET Take 1 tablet by mouth 4 (four) times daily as needed for Abdominal pain. ONDANSETRON 4 MG DISINTEGRATING TABLET Take 1 tablet by mouth every 8 (eight) hours as needed for Nausea and Vomiting (N/V). PROMETHAZINE 25 MG TABLET Take 1 tablet by mouth every 6 (six) hours as needed for Nausea and Vomiting (N/V). START taking Modified Medications as Prescribed No medications on file STOP taking these medications No medications on file Follow-up: Electronically signed by: Marylou Amaya DO 09/06/24 0910 [facility] 2023-02-10 18:15:53 Formatting of this n ote might be different from the original. Pt wanting to leave. Advised that MD was typing up discharge if she wanted to wait for paperwork. Pt said she was not and would be going [facility] Pt left ER ambulatory, no signs of distress. Linda Alcaraz RN [facility] 2023-02-10 15:05:54 Formatting of this n ote might be different from the original. Pt c/o chest pain. Dr. Posey notified. EKG completed and turned into him. [facility] 2023-02-10 13:01:51 Formatting of this n ote might be different from the original. Harlan Ayala is a 17 year old female c/o n/v x 3 and "fishy" taste in mouth, denies other symptoms T Rocio Rowe RN [facility] 2023-02-10 12:56:00 Formatting of this n ote is different from the original. [facility] Emergency Department Note Demographics Patient Name: Harlan Ayala Date of : 2005 17 year old Treatment Room: [place] [address] Primary Care Physician: Kristopher Miramontes Pre Hospital Care Patient Escorted by: Self [9] Mode of Arrival: Personal means [1] EMS Treatment Prior to ED Arrival: DRIER HELPER treatment: None ED Events Date/Time Event User Comments 02/10/23 1305 Medical Screening Begins LUIS CARLOS POSEY MD -- 02/10/23 1305 First Provider Evaluation LUIS CARLOS POSEY MD -- Chief complaint Chief Complaint Patient presents with Vomiting ED Triage Notes Rocio Rowe RN 02/10/2023 13:02 Harlan Ayala is a 17 year old female c/o n/v x 3 and "fishy" taste in mouth, denies other symptoms Chief Complaint Patient presents with Vomiting History of present illness HPI 17 yo woman comes to the ED complaining of lower abdominal pain, nausea and vomiting for the last several hours. Reports h/o ovarian cyst. No chronic medical problems or medications. Used marijuana regularly. Past Medical and Social History History reviewed. No pertinent past medical history. Tetanus received in last 5 years: Unknown Past Surgical History History reviewed. No pertinent surgical history. Medications Medications NaCl 0.9% (NS) bolus infusion 1,000 mL (0 mL IV Infusion Stopped 02/10/23 1451) ondansetron (ZOFRAN (PF)) injection 4 mg (4 mg Slow IV Push Given 02/10/23 1406) iopamidol (ISOVUE 370-500 mL) injection 45 mL (45 mL Intravenous Given 02/10/23 1548) Allergies No Known Allergies Review of Systems Review of Systems Constitutional: Negative. HENT: Negative. Eyes: Negative. Respiratory: Negative. Cardiovascular: Negative. Gastrointestinal: Positive for abdominal pain, nausea and vomiting. Genitourinary: Negative. Musculoskeletal: Negative. Skin: Negative. Neurological: Negative. Psychiatric/Behavioral: Negative. Endocrine: Endocrine negative Physical Exam BP (!) 142/96 | Pulse 94 | Temp 36.9 ?C (98.5 ?F) (Oral) | Resp 19 | Ht 1.753 m (5' 9") | Wt 54.3 kg (119 lb 12.8 oz) | SpO2 99% | BMI 17.69 kg/m? Physical Exam Vitals and nursing note reviewed. Constitutional: General: She is in acute distress. Appearance: She is well-developed and normal weight. She is ill-appearing. HENT: Head: Normocephalic and atraumatic. Right Ear: External ear normal. Left Ear: External ear normal. Nose: Nose normal. No congestion or rhinorrhea. Mouth/Throat: Pharynx: No oropharyngeal exudate or posterior oropharyngeal erythema. Eyes: General: Right eye: No discharge. Left eye: No discharge. Conjunctiva/sclera: Conjunctivae normal. Pupils: Pupils are equal, round, and reactive to light. Cardiovascular: Rate and Rhythm: Normal rate and regular rhythm. Heart sounds: Normal heart sounds. No murmur heard. No friction rub. Pulmonary: Effort: Pulmonary effort is normal. No respiratory distress. Breath sounds: Normal breath sounds. No stridor. No wheezing or rhonchi. Abdominal: General: Bowel sounds are normal. There is no distension. Palpations: Abdomen is soft. There is no mass. Tenderness: There is abdominal tenderness. Hernia: No hernia is present. Musculoskeletal: General: No swelling, tenderness, deformity or signs of injury. Normal range of motion. Cervical back: Normal range of motion and neck supple. No rigidity or tenderness. Skin: General: Skin is warm. Capillary Refill: Capillary refill takes less than 2 seconds. Coloration: Skin is not jaundiced or pale. Findings: No bruising or erythema. Neurological: General: No focal deficit present. Mental Status: She is alert and oriented to person, place, and time. Cranial Nerves: No cranial nerve deficit. Sensory: No sensory deficit. Motor: No weakness. Coordination: Coordination normal. Psychiatric: Mood and Affect: Mood normal. Behavior: Behavior normal. Thought Content: Thought content normal. Judgment: Judgment normal. Labs and Studies Lab Results CBC WITH DIFF - Abnormal Result Value Ref Range WBC 13.47 4.50 - 13.50 10*3/?L RBC 4.46 4.10 - 5.10 10*6/?L HGB 14.6 12.0 - 16.0 g/dL HCT 42.4 36.0 - 45.0 % MCV 95.1 (*) 78.0 - 95.0 fL MCH 32.7 (*) 26.0 - 32.0 pg MCHC 34.4 32.0 - 36.0 g/dL RDW-SD 42.3 38.5 - 49.0 fL RDW-CV 12.0 11.5 - 14.0 % PLT 315 135 - 361 10*3/?L MPV 10.3 9.4 - 13.3 fL NRBC/100 WBC 0.0 0.0 - 10.0 /100 WBCs NRBC x10^3 <0.01 10*3/?L GRAN MAT (NEUT) % 78.0 % IMM GRAN % 0.40 % LYMPH % 14.7 % MONO % 6.4 % EOS % 0.2 % BASO % 0.3 % GRAN MAT x10^3(ANC) 10.50 (*) 1.50 - 10.30 10*3/uL IMM GRAN x10^3 0.06 0.00 - 0.06 10*3/uL LYMPH x10^3 1.98 0.70 - 7.40 10*3/uL MONO x10^3 0.86 (*) 0.00 - 0.50 10*3/uL EOS x10^3 0.03 0.00 - 0.40 10*3/uL BASO x10^3 0.04 0.00 - 0.10 10*3/uL COMP. METABOLIC PANEL (88099) - Abnormal NA 140 135 - 145 mmol/L K 4.0 3.5 - 5.0 mmol/L CL 111 (*) 98 - 108 mmol/L CO2 TOTAL 17 (*) 23 - 31 mmol/L AGAP 12 2 - 16 BUN 8 7 - 23 mg/dL GLUCOSE 136 (*) 70 - 110 mg/dL CREATININE 0.70 0.50 - 1.04 mg/dL TOTAL BILI 0.3 0.1 - 1.1 mg/dL CALCIUM 9.8 8.6 - 10.6 mg/dL T PROTEIN 8.0 6.3 - 8.2 g/dL ALBUMIN 4.7 3.5 - 5.0 g/dL ALK PHOS 92 34 - 122 U/L ALTv 17 5 - 35 U/L AST(SGOT) 26 13 - 40 U/L eGFR 109.0 mL/min/1.73m2 URINALYSIS - Abnormal APPEARANCE Hazy (*) Clear COLOR Red (*) Yellow PH 5.0 4.8 - 8.0 SP GRAVITY 1.021 1.003 - 1.030 GLU U QUAL Normal Normal BLOOD 3+ (*) Negative KETONES Negative Negative PROTEIN 100 mg/dL (*) Negative UROBILIN Normal Normal BILIRUBIN Negative Negative NITRITE Negative Negative LEUK CORDELIA Negative Negative RBC/HPF >182 (*) 0 - 3 HPF WBC/HPF 17 (*) 0 - 5 HPF BACTERIA Few (*) Negative MUCOUS Slight (*) Negative LPF SQ EPITH 11 HPF HYAL CAST 3 (*) <=2 LPF URINE DRUG (IMMUNOASSAY) - COMPREHENSIVE DRUG SCREEN - Abnormal AMPHET Negative Negative JÚNIOR U Negative Negative BENZO U Negative Negative Cocaine Metabolite Negative Negative METHADONE Negative Negative OPIATES Negative Negative PCP Negative Negative THC Presumptive Positive (*) Negative TEST, SERUM PREG SERUM Negative US OVARY TORSION Final Result ORDERING PROVIDER: LUIS CARLOS POSEY HISTORY: pelvic pain TECHNIQUE: Pelvic ultrasound was performed transabdominally and transvaginally utilizing grayscale, color Doppler, and spectral Doppler techniques. Technical Quality: Diagnostic COMPARISON: CT abdomen pelvis 02/10/2023 FINDINGS: Uterus measures approximately 6.7 x 2.8 x 4.2 cm. No focal myometrial lesions are detected. The endometrial stripe measures 0.4 cm in thickness. The right ovary measures 3.6 x 1.5 x 3.2 cm. Tiny physiologic right ovarian cysts/follicles. The left ovary measures 3.1 x 1.7 x 3.0 cm. Tiny physiologic left ovarian cysts/follicles. Normal color flow and waveforms are seen in both ovaries on color/spectral Doppler imaging. No free fluid is seen in the pelvic cul-de-sac. IMPRESSION 1. Normal, age-appropriate sonographic appearance of the pelvis. 2. No evidence of ovarian torsion. RL: [id number] [facility]: [id number] End of Report ABDOMEN PELVIS W CONTRAST Final Result Exam: CT ABDOMEN PELVIS W CONTRAST HISTORY: Abdominal distension . Patient presenting with nausea and vomiting for 3 days as well as "fishy" taste in mouth. COMPARISON: CT dated 01/13/2023, 11/17/2022 TECHNIQUE AND FINDINGS: Contiguous axial imaging from the level of the lung bases through the proximal thighs was performed after the administration of intravenous contrast. Coronal and sagittal reconstructions were obtained. FINDINGS: LOWER THORAX: The lungs bases are clear. No cardiomegaly. LIVER: The liver measures 18.7 cm in greatest craniocaudal length. Normal contour. GALLBLADDER AND BILIARY TREE: No biliary ductal dilation. No gallbladder wall thickening. SPLEEN: No splenomegaly. PANCREAS: No ductal dilation or masses. ADRENAL GLANDS: No adrenal nodules. KIDNEYS: Bilateral symmetrical enhancement. No hydronephrosis, stones, or masses. GI TRACT: No dilation or wall thickening. The appendix is normal (2:41). PELVIS/BLADDER: Unremarkable. Bilateral ovaries are visualized. PERITONEUM AND RETROPERITONEUM: No free air or fluid. LYMPH NODES: No lymphadenopathy. VESSELS: Unremarkable. BONES AND SOFT TISSUES: No suspicious lytic or sclerotic bony lesions. IMPRESSION No acute abdominal or pelvic abnormality. A corpus luteal cyst is seen in the right ovary. The previously seen left ovarian hemorrhagic cyst resolved. Preliminary Report Dictated by Resident: Vance Carrera I, Johan Travis MD., have reviewed this study and agree with the above report. Orders and Treatments Orders Placed This Encounter Procedures CT ABDOMEN PELVIS W CONTRAST US OVARY TORSION CBC WITH DIFF COMP. METABOLIC PANEL (42129) URINALYSIS URINE DRUG (IMMUNOASSAY) - COMPREHENSIVE DRUG SCREEN TEST, SERUM Orders Placed This Encounter Medications NaCl 0.9% (NS) bolus infusion 1,000 mL ondansetron (ZOFRAN (PF)) injection 4 mg iopamidol (ISOVUE 370-500 mL) injection 45 mL Patient's Medications START taking these medications No medications on file CONTINUE taking these medications which have NOT CHANGED DICYCLOMINE 20 MG TABLET Take 1 tablet by mouth 4 (four) times daily as needed for Abdominal pain. ONDANSETRON 4 MG DISINTEGRATING TABLET Take 1 tablet by mouth every 8 (eight) hours as needed for Nausea and Vomiting (N/V). PROMETHAZINE 25 MG TABLET Take 1 tablet by mouth every 6 (six) hours as needed for Nausea and Vomiting (N/V). START taking Modified Medications as Prescribed No medications on file STOP taking these medications No medications on file Procedures Procedures Evidence Care No notes of EC Admission Criteria type on file. MDM & Notes Patient was evaluated for an emergency medical condition related to Vomiting . History and/or review of systems is limited by:History limited: None. Medical Decision Making 17 yo woman comes to the ED complaining of lower abdominal pain, nausea and vomiting for the last several hours. Reports h/o ovarian cyst. No chronic medical problems or medications. Used marijuana last week. DDx abdominal pain/ovarian cyst/ gastroenteritis/maijuana use Problems Addressed: Vomiting, unspecified vomiting type, unspecified whether nausea present: acute illness or injury Amount and/or Complexity of Data Reviewed Labs: ordered. Decision-making details documented in ED Course. Radiology: ordered and independent interpretation performed. Details: Neg CT abdomen and pelvis No sonographic evidence of ovarian torsion or hemorrhagic cyst. Discussion of management or test interpretation with external provider(s): Negative labs No acute findings on CT or US. Likely marijuana cyclical vomiting Advised to avoid marijuana Continue medications and f/u with PCP Return to the ED if worsening of symptoms. Risk OTC drugs. Prescription drug management. Diagnosis/Impression as of 02/10/235 Vomiting, unspecified vomiting type, unspecified whether nausea present Nausea and vomiting, unspecified vomiting type Dehydration Marijuana abuse Case discussed with: none Barriers & Social Determinants of Healthcare: Limitations to patient care and compliance: none. Assessment: Harlan Ayala is a 17 year old female presenting for single complaint(s) listed below and mentioned within the note. The patient has acute condition(s). Follow up with providers listed below for further evaluation and management. Return precautions given if symptoms worsen as documented in the discharge instructions. History, physical exam findings, results of visit, differential diagnosis, medication regimens and plan of future care have been considered. Additional MDM may be found in the ED course. Differential diagnosis considered and final disposition made based on information gathered during evaluation and may not be completely ruled out or specifically listed. Vital signs were rechecked before final disposition and determined to be stable. Diagnoses ICD-10-CM 1. Vomiting, unspecified vomiting type, unspecified whether nausea present R11.10 2. Nausea and vomiting, unspecified vomiting type R11.2 3. Dehydration E86.0 4. Marijuana abuse F12.10 Disposition and Condition ED Disposition ED Disposition Disch - Home Condition Stable Comment -- Patient's Medications START taking these medications No medications on file CONTINUE taking these medications which have NOT CHANGED DICYCLOMINE 20 MG TABLET Take 1 tablet by mouth 4 (four) times daily as needed for Abdominal pain. ONDANSETRON 4 MG DISINTEGRATING TABLET Take 1 tablet by mouth every 8 (eight) hours as needed for Nausea and Vomiting (N/V). PROMETHAZINE 25 MG TABLET Take 1 tablet by mouth every 6 (six) hours as needed for Nausea and Vomiting (N/V). START taking Modified Medications as Prescribed No medications on file STOP taking these medications No medications on file Luis Carlos Posey MD, FACEP, FAAEM Corporate Manager of Emergency and Internal Medicine [facility] #[id number] Luis Carlos Posey MD 02/10/231814 [facility] 2023-01-15 04:34:04 Formatting of this n ote might be different from the original. Pt given printed and verbal discharge instructions regarding left ovarian cyst, acute cystitis with hematuria, encouraged hydration, Prescriptions provided: Macrobid Discussed ibuprofen and to take with food to avoid GI distress. Discussed antibiotic therapy and to take until all completed unless adverse reaction occurs - if occurs, discontinue medication and follow up with pcp/seek medical attention Pt verbalized understanding of instructions, pt awake alert oriented, resp reg unlabored, skin w/d, color appropriate for race, moves all ext well,pt encouraged to follow up with pcp and or [employer] Advised to seek medical attention for new/prolonged/worsening of symptoms, Symptoms improved No adverse reaction to meds given in ER noted upon discharge PIV d'cd, dressing to site, catheter in tact. Awake, alert oriented, resp reg unlabored, skin w/d, pt leaving amb with steady gait, in no apparent distress, Lianet Lora RN [facility] 2023-01-15 01:12:07 Formatting of this n ote might be different from the original. Gave report MONIKA Lora. Juanita Yates RN [facility] 2023-01-14 23:10:59 Formatting of this n ote might be different from the original. Pt arrived ambulatory with mother for LLQ pain x2 days and vomiting. Pt was seen here yesterday and came back earlier today and was dc'd home and told to get her prescriptions from the pharmacy. Pt states she got her meds and took them and it is not helping. Pt states when she eats food it taste "awkward." Pt tearful and states she can only get partially comfortable when she leans over. Pt smoked marijuana this morning. Tawanna Vicente RN [facility] 2023-01-14 23:02:00 Formatting of this n ote is different from the original. [facility] Emergency Department Note Patient Name: Harlan Ayala Date of : 2005 17 year old female Treatment Room: [place] [address] Primary Care Physician: Kristopher Miramontes Patient Escorted by: Family [5] Mode of Arrival: Personal means [1] EMS Treatment Prior to ED Arrival: DRIER HELPER treatment: None Travel and Exposure Screening: Symptoms Does patient have any of these symptoms?: (not recorded) Exposure Screening Has patient had contact with someone with a communicable disease in the last month?: (not recorded) Diseases exposed to:: (not recorded) Is Patient ?: (not recorded) Exposure Date: (not recorded) Chief Complaint: Chief Complaint Patient presents with Abdominal Pain Vomiting History of Present Illness: Harlan is a frequent patient to the ER with history of recurrent abdominal pain and vomiting. She smokes marijuana regularly. She was seen here yesterday with full evaluation including abdominal CT and returned again this morning before she had filled her prescriptions. She returns again this evening stating the medications are not helping. She reports intermittent severe left lower quadrant pain. On CT yesterday she did have a left adnexal cyst 4.8 cm x 4.6 cm. She has intermittent vomiting and states she threw up the phenergan. She smoked marijuana this morning.. Past Medical History/Immunizations: History reviewed. No pertinent past medical history. Tetanus received in last 5 years: Unknown Allergies: No Known Allergies Past Social History: Substance & Sexual Activity No substance use or sexual activity history on file. Past Surgical History: History reviewed. No pertinent surgical history. Review of Systems: Review of Systems Constitutional: Negative for fatigue and fever. Gastrointestinal: Positive for abdominal pain, nausea and vomiting. Genitourinary: Negative for vaginal discharge and difficulty urinating. Physical Exam: ED Triage Vitals [01/14/23 2314] Weight 52.8 kg (116 lb 6.4 oz) Actual or estimated Actual Height 1.753 m (5' 9") BP 124/74 Pulse 62 Resp 20 Temp 37.3 ?C (99.1 ?F) Temp source Oral SpO2 98 % Measured on Room air Physical Exam Constitutional: General: She is not in acute distress. Appearance: Normal appearance. She is normal weight. She is not ill-appearing or toxic-appearing. HENT: Head: Normocephalic and atraumatic. Nose: Nose normal. Mouth/Throat: Mouth: Mucous membranes are moist. Cardiovascular: Rate and Rhythm: Normal rate and regular rhythm. Pulses: Normal pulses. Heart sounds: Normal heart sounds. No murmur heard. Pulmonary: Effort: Pulmonary effort is normal. No respiratory distress. Breath sounds: Normal breath sounds. Abdominal: General: Bowel sounds are normal. Palpations: Abdomen is soft. Tenderness: There is abdominal tenderness (llq only). There is no right CVA tenderness, left CVA tenderness, guarding or rebound. Neurological: Mental Status: She is alert. Radiology: No orders to display Lab Results: Lab Results CBC WITH DIFF - Abnormal Result Value Ref Range WBC 10.32 4.50 - 13.50 10*3/?L RBC 4.03 (*) 4.10 - 5.10 10*6/?L HGB 13.2 12.0 - 16.0 g/dL HCT 38.8 36.0 - 45.0 % MCV 96.3 (*) 78.0 - 95.0 fL MCH 32.8 (*) 26.0 - 32.0 pg MCHC 34.0 32.0 - 36.0 g/dL RDW-SD 43.1 38.5 - 49.0 fL RDW-CV 12.2 11.5 - 14.0 % PLT 269 135 - 361 10*3/?L MPV 10.2 9.4 - 13.3 fL NRBC/100 WBC 0.0 0.0 - 10.0 /100 WBCs NRBC x10^3 <0.01 10*3/?L GRAN MAT (NEUT) % 76.5 % IMM GRAN % 0.30 % LYMPH % 14.8 % MONO % 8.2 % EOS % 0.0 % BASO % 0.2 % GRAN MAT x10^3(ANC) 7.89 1.50 - 10.30 10*3/uL IMM GRAN x10^3 0.03 0.00 - 0.06 10*3/uL LYMPH x10^3 1.53 0.70 - 7.40 10*3/uL MONO x10^3 0.85 (*) 0.00 - 0.50 10*3/uL EOS x10^3 <0.03 0.00 - 0.40 10*3/uL BASO x10^3 <0.03 0.00 - 0.10 10*3/uL URINALYSIS - Abnormal APPEARANCE Hazy (*) Clear COLOR Amaya (*) Yellow PH 5.0 4.8 - 8.0 SP GRAVITY 1.035 (*) 1.003 - 1.030 GLU U QUAL Normal Normal BLOOD 2+ (*) Negative KETONES 20 mg/dL (*) Negative PROTEIN 100 mg/dL (*) Negative UROBILIN 2.0 mg/dL (*) Normal BILIRUBIN Negative Negative NITRITE Negative Negative LEUK CORDELIA 75/uL (*) Negative RBC/HPF 3 0 - 3 HPF WBC/HPF 13 (*) 0 - 5 HPF BACTERIA Few (*) Negative MUCOUS Marked (*) Negative LPF SQ EPITH 5 HPF COMP. METABOLIC PANEL (61267) NA 143 135 - 145 mmol/L K 3.7 3.5 - 5.0 mmol/L CL 104 98 - 108 mmol/L CO2 TOTAL 29 23 - 31 mmol/L AGAP 10 2 - 16 BUN 19 7 - 23 mg/dL GLUCOSE 104 70 - 110 mg/dL CREATININE 0.80 0.50 - 1.04 mg/dL TOTAL BILI 0.4 0.1 - 1.1 mg/dL CALCIUM 9.6 8.6 - 10.6 mg/dL T PROTEIN 7.7 6.3 - 8.2 g/dL ALBUMIN 4.6 3.5 - 5.0 g/dL ALK PHOS 59 34 - 122 U/L ALTv 17 5 - 35 U/L AST(SGOT) 24 13 - 40 U/L eGFR 93.4 mL/min/1.73m2 EKG: If EKG completed, see Procedure Note. Orders and Treatments: Orders Placed This Encounter Procedures US OVARY TORSION CBC WITH DIFF COMP. METABOLIC PANEL (78697) URINALYSIS Orders Placed This Encounter Medications ketorolac (TORADOL) injection 15 mg NaCl 0.9% (NS) bolus infusion 1,000 mL First Provider Eval: ED Events Date/Time Event User Comments 01/14/232319 Medical Screening Begins GWEN GOLDSTEIN -- 01/14/232319 First Provider Evaluation GWEN GOLDSTEIN -- No notes of EC Admission Criteria type on file. ED COURSE ED Course as of 01/15/236 Tue Jan 15, 2023 0406 US OVARY TORSION IMPRESSION ? Normal ultrasound appearance of the uterus. ? 3.5 cm hemorrhagic cyst in the left ovary without evidence for ovarian torsion or significant free fluid. [LS] ED Course User Index [LS] Joy Andrews MD Diagnosis/Impression as of 01/15/23 0416 LLQ pain Acute cystitis with hematuria Cyst of left ovary Care turned over to Dr Snell at 0300, end of shift. U/s to r/o torsion pending. Procedures: Procedures MDM: Medical Decision Making Amount and/or Complexity of Data Reviewed Labs: ordered. Radiology: ordered. Risk Prescription drug management. Flowsheet Documentation: Scoring Tools: No data recorded Disposition/Condition: pending ED Disposition None Electronically signed by: Ishmael Domínguez PAC 01/15/237 Associated attestation - Joy Andrews MD - 01/15/2023 4:15 AM CDT Addendum I was personally available for consultation in the Emergency Department during this encounter and patient evaluation by MARGIE Domínguez. Signed out to me as primary at 03:00, pending US results. Lab and imaging studies reviewed Hospital Encounter on 01/14/23 US OVARY TORSION Narrative Ordering physician: Ishmael DOMÍNGUEZ INDICATION: Right lower quadrant pain COMPARISON: CT of the abdomen and pelvis dated 01/13/2023 TECHNIQUE: Grayscale and Doppler images of the pelvis were performed via a transabdominal and endovaginal approach. FINDINGS: The uterus measures 7.2 x 3.4 x 4.5 cm. The endometrium is uniformly thin, at 4 mm. The right ovary measures 3.7 x 1.7 x 2.1 cm and the left ovary measures 4.6 x 2.6 x 4.4 cm. There is a hemorrhagic cyst in the left ovary, measuring 3.5 cm. There is normal color Doppler flow in the ovaries bilaterally, with normal spectral Doppler waveforms. No significant free fluid is appreciated. Impression Normal ultrasound appearance of the uterus. 3.5 cm hemorrhagic cyst in the left ovary without evidence for ovarian torsion or significant free fluid. RL: [address] [facility]: [id number] Course as of 01/15/23414Jan 15, 2023 0406 US OVARY TORSION IMPRESSION Normal ultrasound appearance of the uterus. 3.5 cm hemorrhagic cyst in the left ovary without evidence for ovarian torsion or significant free fluid. [LS] ED Course User Index [LS] Joy Andrews MD Diagnosis/Impression as of 01/15/23414 LLQ pain Acute cystitis with hematuria Cyst of left ovary Findings discussed with patient Diagnosis ICD-10-CM 1. Cyst of left ovary N83.202 2. LLQ pain R10.32 3. Acute cystitis with hematuria N30.01 Plan 1. Patient's Medications START taking these medications NITROFURANTOIN&NIT. MACROCRYST 100 MG CAPSULE Take 1 capsule by mouth in the morning and 1 capsule in the evening. Do all this for 5 days. CONTINUE taking these medications which have NOT CHANGED DICYCLOMINE 20 MG TABLET Take 1 tablet by mouth 4 (four) times daily as needed for Abdominal pain. ONDANSETRON 4 MG DISINTEGRATING TABLET Take 1 tablet by mouth every 8 (eight) hours as needed for Nausea and Vomiting (N/V). PROMETHAZINE 25 MG TABLET Take 1 tablet by mouth every 6 (six) hours as needed for Nausea and Vomiting (N/V). START taking Modified Medications as Prescribed No medications on file STOP taking these medications No medications on file 2. Contact information for follow-up [facility] Specialty: Obstetrics & Gynecology [address] [place] [address], [address] [facility] [address] Instructions: As needed Kristopher Miramontes Specialty: IM-INTERNAL MEDICINE Relationship: PCP - General [address] [place] [address] Instructions: As needed 3. macrobid for UTI 4. Return to ER if symptoms should worsen or fail to improve within 72 hours. Follow up with primary care provider within 48-72 hours. Take all medications as prescribed. Stay adequately hydrated. Joy Andrews M.D., FACEP Emergency Medicine [facility] 2023-01-14 13:38:14 Formatting of this n ote might be different from the original. Pt discharged with diagnosis of abdominal pain. Printed and verbal instructions reviewed with and given to patient. No new prescriptions given for this visit. Pt verbalized understanding of teaching and recommended follow-up. Denies questions or concerns at this time. Pt ambulatory at discharge. Appears in no apparent distress. No ataxia noted. Accompanied by mother. Lauren Aguayo RN [facility] 2023-01-14 11:42:27 Formatting of this n ote might be different from the original. Harlan Ayala is a 17 year old female c/o abdominal pain since yesterday, n/v x2, states seen in ER yesterday for same, did not get meds filled from pharmacy Rocio Rowe RN [facility] 2023-01-13 19:08:07 Formatting of this n ote might be different from the original. Pt given printed and verbal discharge instructions regarding N/V, encouraged hydration. 1 Prescription sent to pharmacy. Discussed ibuprofen and to take with food to avoid GI distress. Discussed phenergan side affects and to avoid driving/operating machinery/or engaging in activities requiring alertness while taking. Pt verbalized understanding of instructions, pt awake alert oriented, resp reg unlabored, skin w/d, color appropriate for race, moves all ext well,pt encouraged to follow up with pcp. Advised to seek medical attention for new/prolonged/worsening of symptoms, Symptoms improved. No adverse reaction to meds given in ER noted upon discharge. PIV d'cd, dressing to site, catheter in tact. Awake, alert oriented, resp reg unlabored, skin w/d, pt leaving amb with steady gait, in no apparent distress. Rocio Jones RN [facility] 2023-01-13 14:43:24 Formatting of this n ote might be different from the original. Patient asking for water, informed patient that since she is vomiting she cannot have water. Dianne Chatterjee RN [facility] 2023-01-13 14:32:19 Formatting of this n ote might be different from the original. Pt arrived via private car with c/o abd pain and vomiting that started last night. States used her inhaler last night. Shania Farah RN [facility]
[2024-09-06] MEDS ORDERED: DIPHENHYDRAMINE 50 MG/ML VIAL ONE (12:08)
[2024-09-06] MEDS ORDERED: NA CHLORIDE 0.9% 1,000 ML ONE (12:08)
[2024-09-06] MEDS ORDERED: FAMOTIDINE 20 MG/2 ML VIAL IV ONE (12:08)
[2024-09-06] MEDS ORDERED: METOCLOPRAMIDE 10 MG/2mL INJ ONE (12:08)
--- NOTE | 2024-09-06 12:24 | RAD REPORT ---
EXAMINATION: ONE VIEW CHEST XR CLINICAL INDICATION: Female, 19 years old.,vomiting TECHNIQUE: Frontal chest projection is submitted. Examination is limited by patient positioning and t echnique. COMPARISON: No prior exam. FINDINGS: The lungs are well inflated and clear. No pneumothorax or sizable effusion. The heart is normal in s ize. Mediastinal contours are unremarkable. IMPRESSION: No acute intrathoracic abnormalities.
--- NOTE | 2024-09-06 12:42 | EDPHYS ---
Physician Documentation [facility] Name: Arianna Ayala Age: 19 yrs Sex: Female : 2005 Arrival Date: 09/06/2024 Time: 11:08 Bed 19 Private MD: ED Physician Jules Golden HPI: 09/06 11:45 This 19 yrs old Female presents to ER via Ambulatory with complaints of Chest cp Tightness, Nausea/Vomiting. 11:45 The patient presents to the emergency department with nausea, that is moderate, cp vomiting, that is intermittent, diarrhea, 1 times today, abdominal pain, chest pain. Onset: The symptoms/episode began/occurred this morning. Possible causes: unknown. Associated signs and symptoms: Pertinent negatives: constipation, fever, GI bleeding. 11:45 Severity of symptoms: in the emergency department the symptoms are unchanged despite cp home interventions. Historical: - Allergies: 11:18 No Known Allergies; aa5 - PMHx: 11:18 Asthma; aa5 - PSHx: 11:18 None; aa5 - Immunization history:: Adult Immunizations unknown. - Infectious Disease History:: Denies. - Social history:: Smoking status: Patient reports the use of cigarette tobacco products. ROS: 11:50 Constitutional: Positive for poor PO intake, Negative for body aches, chills, fever, cp 11:50 Eyes: Negative for injury, pain, redness, and discharge, cp 11:50 ENT: Negative for drainage from ear(s), ear pain, sore throat, difficulty swallowing, difficulty handling secretions, 11:50 Cardiovascular: Positive for chest pain, Negative for palpitations, 11:50 Respiratory: Negative for cough, wheezing, 11:50 Abdomen/GI: Positive for abdominal pain, nausea and vomiting, diarrhea, Negative for constipation, 11:50 : Negative for urinary symptoms, 11:50 Neuro: Negative for altered mental status, dizziness, headache, weakness, 11:50 All other systems are negative, Exam: 11:55 Constitutional: The patient appears in no acute distress, alert, awake, cp non-diaphoretic, non-toxic, well developed, well nourished, uncomfortable, 11:55 Head/Face: Normocephalic, atraumatic. cp 11:55 Eyes: Periorbital structures: appear normal, Conjunctiva: normal, no exudate, no injection, Sclera: no appreciated abnormality, Lids and lashes: appear normal, bilaterally, 11:55 ENT: External ear(s): are unremarkable, Nose: is normal, Mouth: Lips: moist, Oral mucosa: moist, Posterior pharynx: Airway: no evidence of obstruction, patent, 11:55 Neck: ROM/movement: is normal, is supple, without pain, no range of motions limitations, 11:55 Chest/axilla: Inspection: normal, 11:55 Cardiovascular: Rate: normal, Rhythm: regular, 11:55 Respiratory: the patient does not display signs of respiratory distress, Respirations: normal, no use of accessory muscles, no retractions, labored breathing, is not present, Breath sounds: are clear throughout, no decreased breath sounds, no stridor, no wheezing, 11:55 Abdomen/GI: Inspection: abdomen appears normal, Bowel sounds: active, all quadrants, Palpation: soft, in all quadrants, moderate abdominal tenderness, in all quadrants, rebound tenderness, is not appreciated, 11:55 Back: CVA tenderness, is absent, 11:55 Skin: no rash present. 11:55 Neuro: Orientation: to person, place \T\ time. Mentation: is normal, Motor: moves all fours, strength is normal, Sensation: no obvious gross deficits, 12:40 ECG was reviewed by the Attending Physician. Vital Signs: 11:13 BP 128 / 84; Pulse 60; Resp 18 S; Temp 98.6(O); Pulse Ox 99% on R/A; Weight 49.9 kg aa5 (R); Height 5 ft. 9 in. (R); 12:36 BP 124 / 72; Pulse 74; Resp 15; Pulse Ox 100% ; cm10 11:13 Body Mass Index 16.24 (49.90 kg, 175.26 cm) aa5 MDM: 11:18 Medical Screening Exam initiated cp 12:40 Data reviewed: vital signs, nurses notes. 12:40 Differential diagnosis: gastritis, cholecystitis, appendicitis, viral gastroenteritis, cp gastroenteritis. I considered the following discharge prescriptions or medication management in the emergency department Medications were administered in the Emergency Department. See MAR. Refusal of service: The patient/guardian displays adequate decision making capability and despite a detailed discussion of alternatives, benefits, risks, and consequences refuses: to wait for results of lab work. patient requesting discharge. 09/06 11:44 Order name: Basic Metabolic Panel; Complete Time: 10:11 09/07 10:12 Interpretation: Normal except: K 3.3; GLUC 161; GFR 81. cp 09/06 11:44 Order name: CBC with Diff; Complete Time: 10:11 09/07 10:12 Interpretation: Normal except: WBC 14.90; RDW 15.5; LEONORA% 90.8; LYM% 5.4; NEUT A 13.5. cp 09/06 11:44 Order name: LFT's; Complete Time: 10:11 cp 09/06 11:44 Order name: Magnesium; Complete Time: 10: 09/06 11:44 Order name: Troponin HS; Complete Time: 10: 09/06 11:44 Order name: Urinalysis w/ reflexes; Complete Time: 10: 09/07 10:12 Interpretation: [facility] Extremely Turbid; UGLUC TRACE; UKET 1+; UPH 8.5; UPROT 2+; UWBC cp Clump Occasional; BYST Few. 09/06 11:44 Order name: Test, Urine; Complete Time: 10:11 cp 09/06 11:44 Order name: UDS; Complete Time: 10:11 09/06 11:44 Order name: COVID-19 Ag + Flu A+B Ag; Complete Time: 10:11 cp 09/06 11:44 Order name: Lipase; Complete Time: 10:11 09/06 11:44 Order name: XRAY Chest (1 view); Complete Time: 12:39 cp 09/06 11:44 Order name: EKG; Complete Time: 11:44 cp 09/06 11:44 Order name: Cardiac monitoring; Complete Time: 12:38 cp 09/06 11:44 Order name: EKG - Nurse/Tech; Complete Time: 12:38 cp 09/06 11:44 Order name: IV Saline Lock; Complete Time: 12:38 cp 09/06 11:44 Order name: Labs collected and sent; Complete Time: 12:38 cp 09/06 11:44 Order name: O2 Per Protocol; Complete Time: 12:38 cp 09/06 11:44 Order name: O2 Sat Monitoring; Complete Time: 12:38 cp EC:40 Rate is 64 beats/min. Rhythm is regular. NC interval is normal. QRS interval is normal. cp QT interval is normal. T waves are Inverted in leads III, aVR. Interpreted by me. Reviewed by me. Administered Medications: 12:38 Drug: metoCLOPramide IVP 10 mg IVP once; over 1 to 2 minutes Route: IVP; Site: right cm10 antecubital; 12:45 Follow up: Response: No adverse reaction cm10 12:38 Drug: diphenhydrAMINE IVP 12.5 mg IVP once Route: IVP; Site: right antecubital; cm10 12:45 Follow up: Response: No adverse reaction cm10 12:39 Drug: NS 0.9% IV 1000 ml IV at 1 bolus Per protocol; to be given as a bolus over 60 cm10 minutes Route: IV; Rate: 1 bolus; Site: right antecubital; 12:45 Follow up: Response: No adverse reaction; IV Status: Completed infusion; IV Intake: [id number] 12:39 Drug: Famotidine IVP 20 mg IVP once; dilute with 10 mL 0.9% NaCl; give over 2 minutes cm10 Route: IVP; Site: right antecubital; 12:45 Follow up: Response: No adverse reaction cm10 Disposition: 09/07 10:53 Co-signature as Attending Physician, Jules Golden MD I reviewed the patient's care rn provided by the Advanced Practice Provider and agree with the diagnosis and treatment plan. Disposition Summary: 09/06/24 12:41 Discharge Ordered Notes: Location: Home cp Problem: new cp Symptoms: have improved cp Condition: Stable cp Diagnosis - Chest pain, unspecified cp - Nausea with vomiting, unspecified cp - Diarrhea, unspecified cp Followup: cp - With: Emergency Department - When: As needed - Reason: Worsening of condition Discharge Instructions: - Discharge Summary Sheet cp - Food Choices to Help Relieve Diarrhea, Adult cp - Nonspecific Chest Pain, Adult cp - Diarrhea, Adult cp - Nausea and Vomiting, Adult cp Forms: - Medication Reconciliation Form cp - Antibiotic Education cp - Prescription Opioid Use cp - Patient Portal Instructions cp - Leadership Thank You Letter cp Signatures: Dispatcher [employer] EDJules Garza MD MD rn Calderon, Audri RN RN aa5 Guanakito Hager PA PA cp Martinez, Clarissa RN RN cm10 Corrections: (The following items were deleted from the chart) 09/06 11:44 11:44 BASIC METABOLIC PANEL+C.LAB.BRZ ordered. EDMS EDMS 11:44 11:44 CBC+H.LAB.BRZ ordered. EDMS EDMS 11:44 11:44 HEPATIC FUNCTION+C.LAB.BRZ ordered. EDMS EDMS 11:44 11:44 MAGNESIUM+C.LAB.BRZ ordered. EDMS EDMS 11:44 11:44 Troponin High Sensitivity+C.LAB.BRZ ordered. EDMS EDMS 11: 11:44 Urinalysis+U.LAB.BRZ ordered. EDMS EDMS 11:44 11:44 Test, Urine+UC.LAB.BRZ ordered. EDMS EDMS 11:44 11:44 URINE DRUG SCREEN+UC.LAB.BRZ ordered. EDMS EDMS 11:44 11:44 COVID-19 Ag + Flu A+B Ag+I.LAB.BRZ ordered. EDMS EDMS 11:44 11:44 LIPASE+C.LAB.BRZ ordered. EDMS EDMS
--- NOTE | 2024-09-06 12:42 | ER ---
Nurse's Notes [facility] Name: Arianna Ayala Age: 19 yrs Sex: Female : 2005 Arrival Date: 09/06/2024 Time: 11:08 Bed 19 Private MD: Diagnosis: Chest pain, unspecified;Nausea with vomiting, unspecified;Diarrhea, unspecified Presentation: 09/06 11:13 Chief complaint: Patient states: vomiting that began today 0500, reports diarrhea and aa5 chest pain. 11:13 Acuity: DAVE 3 aa5 11:13 Method Of Arrival: Ambulatory aa5 11:13 Coronavirus screen: nausea, vomiting. Ebola Screen: Patient denies travel to an [facility] Ebola-affected area in the 21 days before illness onset. Initial Sepsis Screen: Does the patient meet any 2 criteria? No. Patient's initial sepsis screen is negative. Does the patient have a suspected source of infection? No. Patient's initial sepsis screen is negative. Risk Assessment: Do you want to hurt yourself or someone else? Patient reports no desire to harm self or others. Onset of symptoms was September 06, 2024. Historical: - Allergies: 11:18 No Known Allergies; aa5 - PMHx: 11:18 Asthma; aa5 - PSHx: 11:18 None; aa5 - Immunization history:: Adult Immunizations unknown. - Infectious Disease History:: Denies. - Social history:: Smoking status: Patient reports the use of cigarette tobacco products. Screenin:30 [facility] ED Fall Risk Assessment (Adult) History of falling in the last 3 months, cm10 including since admission No falls in past 3 months (0 pts) Confusion or Disorientation No (0 pts) Intoxicated or Sedated No (0 pts) Impaired Gait No (0 pts) Mobility Assist Device Used No (0 pt) Altered Elimination No (0 pt) Score/Fall Risk Level 0 - 2 = Low Risk Oriented to surroundings, Maintained a safe environment, Hourly rounding (assess needs \T\ fall precautionary measures) done. Abuse screen: Denies threats or abuse. Denies injuries from another. Nutritional screening: No deficits noted. Tuberculosis screening: No symptoms or risk factors identified. Assessment: 12:20 General: Appears in no apparent distress. uncomfortable, Behavior is calm, cooperative. cm10 12:20 Pain: Complains of pain in abdomen Pain does not radiate. Pain began THIS MORNING. cm10 Neuro: No deficits noted. Level of Consciousness is awake, alert, obeys commands, Oriented to person, place, time, situation, Appropriate for age. Cardiovascular: Patient's skin is warm and dry. Respiratory: No deficits noted. Airway is patent Respiratory effort is even, unlabored, Respiratory pattern is regular, symmetrical. GI: Reports lower abdominal pain, upper abdominal pain, nausea, vomiting. 12:40 Reassessment: PT REMOVED IV AND ALL MONITORING EQUIPMENT AND STATES THAT SHE WANTS TO cm10 GO HOME. PROVIDER MADE AWARE. Vital Signs: 11:13 BP 128 / 84; Pulse 60; Resp 18 S; Temp 98.6(O); Pulse Ox 99% on R/A; Weight 49.9 kg aa5 (R); Height 5 ft. 9 in. (R); 12:36 BP 124 / 72; Pulse 74; Resp 15; Pulse Ox 100% ; cm10 11:13 Body Mass Index 16.24 (49.90 kg, 175.26 cm) aa5 ED Course: 11:12 Patient arrived in ED. cj3 11:13 Arm band placed on Patient placed in an exam room, on a stretcher. aa5 11:18 Guanakito Hager PA is PHCP. cp 11:18 Jules Golden MD is Attending Physician. cp 11:18 Triage completed. aa5 11:22 Emelyn Seals, MONIKA is Primary Nurse. cm10 11:59 XRAY Chest (1 view) In Process Unspecified. EDMS 12:30 Patient has correct armband on for positive identification. Bed in low position. Call cm10 light in reach. Provided Education on: ER PROCESS AND PROCEDURES.\E\. Client placed on continuous cardiac and pulse oximetry monitoring. NIBP monitoring applied. lunchroom monitor on. 12:38 Lipase Sent. cm10 12:38 COVID-19 Ag + Flu A+B Ag Sent. cm10 12:38 UDS Sent. cm10 12:38 Test, Urine Sent. cm10 12:38 Basic Metabolic Panel Sent. cm10 12:38 CBC with Diff Sent. cm10 12:38 LFT's Sent. cm10 12:38 Magnesium Sent. cm10 12:38 Troponin HS Sent. cm10 12:40 Initial lab(s) drawn, by me, sent to lab. Urine collected: clean catch specimen, EKG cm10 done, by ED staff, reviewed by Guanakito HANSON. Inserted saline lock: 20 gauge in right antecubital area, using aseptic technique. Blood collected. Flushed with 10 mL NS. 12:43 No provider procedures requiring assistance completed. IV discontinued, intact, cm10 bleeding controlled, No redness/swelling at site. Pressure dressing applied. Patient maintains SpO2 saturation greater than 95% on room air. Administered Medications: 12:38 Drug: metoCLOPramide IVP 10 mg IVP once; over 1 to 2 minutes Route: IVP; Site: right cm10 antecubital; 12:45 Follow up: Response: No adverse reaction cm10 12:38 Drug: diphenhydrAMINE IVP 12.5 mg IVP once Route: IVP; Site: right antecubital; cm10 12:45 Follow up: Response: No adverse reaction cm10 12:39 Drug: NS 0.9% IV 1000 ml IV at 1 bolus Per protocol; to be given as a bolus over 60 cm10 minutes Route: IV; Rate: 1 bolus; Site: right antecubital; 12:45 Follow up: Response: No adverse reaction; IV Status: Completed infusion; IV Intake: [id number] 12:39 Drug: Famotidine IVP 20 mg IVP once; dilute with 10 mL 0.9% NaCl; give over 2 minutes cm10 Route: IVP; Site: right antecubital; 12:45 Follow up: Response: No adverse reaction cm10 Medication: 12:44 VIS not applicable for this client. cm10 Intake: 12:45 IV: 50ml; Total: 50ml. cm10 Outcome: 12:41 Discharge ordered by MD. almanzar 12:42 Discharged to home ambulatory, with family, cm10 12:42 Condition: good 12:42 Discharge instructions given to PT LEFT PRIOR TO SIGNING PAPERWORK 12:44 Patient left the ED. cm10 Signatures: Dispatcher [employer] EDMS Angela De La Rosa, RN RN aa5 Guanakito Hager PA PA cp Martinez, Clarissa, RN RN cm10 Sanna Davis [email or web address]
[2024-09-06 12:46] LABS: Specific Gravity 1.025 (1.005-1.030); Urine Bacteria None Seen /HPF (<20); Urine Bilirubin NEGATIVE (Negative); Urine Blood Negative (Negative); Urine Clarity Extremely Turbid (Clear); Urine Color Yellow (Yellow); Urine Crystals Unidentified Few /HPF (None Seen); Urine Culture Reflex Order NOT NEEDED; Urine Glucose TRACE (Negative); Urine Ketones 1+ (Negative); Urine Microscopic Reflex YN ORDER UMIC; Urine Mucus Slight /HPF (None Seen); Urine Nitrite NEGATIVE (Negative); Urine Protein 2+ (Negative); Urine RBC <5 /HPF (None Seen); Urine Urobilinogen Normal (Normal); Urine WBC <5 /HPF (<5); Urine WBC Clump Occasional /HPF (None Seen); Urine Yeast (Budding) Few /HPF (None Seen); Urine pH 8.5 (5.0-7.0)
[2024-09-06 12:59] VITALS: TEMP 98.6
[2024-09-06 12:59] LABS: Barbiturates NEGATIVE (NEGATIVE); Benzodiazepines NEGATIVE (NEGATIVE); Cocaine NEGATIVE (NEGATIVE); METHAMPHETAM NEGATIVE (NEGATIVE); Methadone NEGATIVE (NEGATIVE); Opiates NEGATIVE (NEGATIVE); Phencyclidine NEGATIVE (NEGATIVE); THC Cannibis POSITIVE (NEGATIVE)
[2024-09-06 13:01] LABS: Absolute Lymphocytes (CBC) 0.8 K/uL (0.7-4.9); Absolute Monocytes 0.5 K/uL (0.1-1.3); Absolute Neutrophil 13.5 K/uL (1.8-8.0); Basophils % 0.2 % (0-1.3); Hematocrit 38.9 % (36.0-45.0); Hemoglobin 13.2 g/dL (12.0-15.0); Lymphocytes % 5.4 % (15.3-44.8); MCH 31.4 pg (27.0-35.0); MCHC 33.8 g/dL (32.0-36.0); MPV 8.8 fL (7.6-11.3); Monocytes % 3.6 % (3.3-12.3); Neutrophils % 90.8 % (41.7-73.7); Platelets 285 thou/uL (152-406); RBC Red Blood Cell Count 4.19 M/uL (3.86-4.86); Red Cell Distribution Width 15.5 % (12.1-15.2)
[2024-09-06 13:03] LABS: ALT/SGPT 56 U/L (13-56); AST/SGOT 24 U/L (15-37); Albumin 3.9 g/dL (3.4-5.0); Albumin/Globulin Ratio 1.1 (1.1-1.8); Alkaline Phosphatase 81 U/L (45-117); Anion Gap 12.3 mEq/L (5.0-15.0); BUN Blood Urea Nitrogen 7 mg/dL (7-18); Bicarbonate 23 mEq/L (21-32); Bilirubin Total 0.3 mg/dL (0.2-1.0); Globulin 3.5 g/dL (2.3-3.5); Glomerular Filtration Rate 81 ml/min (=/>90); Glucose Level 161 mg/dL (74-106); Lipase 14 U/L (13-75); Magnesium 1.8 mg/dL (1.6-2.4); Potassium 3.3 mEq/L (3.5-5.1); Protein, Total 7.4 g/dL (6.4-8.2); Sodium Level 139 mEq/L (136-145)
[2024-09-06 13:04] LABS: Bilirubin Direct < 0.2 mg/dL (0-0.2); Bilirubin Indirect, Calculated 0.1 mg/dL (0.2-0.8); Influenza A Ag Negative; Influenza B Ag Negative; SARS-CoV-2 Antigen Rapid Res Negative (Negative); Troponin High Sensitivity < 3.0 pg/mL (<58.9)
[2024-09-06 13:05] VITALS: BP 124/72; O2SAT 100
--- NOTE | 2024-09-07 10:50 | EKG ---
Test Date: 2024-09-06 Test Time: 12:33:34 Electrical Assemblies Supervisor: FRANCI MEASUREMENT RESULTS: Intervals: Rate: 64 WY: 106 QRSD: 94 QT: 442 QTc: 455 [place]: P: 68 WY: 106 QRS: 71 T: 30 INTERPRETIVE STATEMENTS: Sinus rhythm with marked sinus arrhythmia with short [place] Otherwise normal ECG No previous ECG available for comparison Electronically Signed On 09-07-24 10:47:41 CDT by Enio Valenzuela
== END 2024-09-06 12:44 | disposition home or self-care (01) ==
LOC: ER 11:08
DX: R07.9 Chest pain, unspecified (principal); R11.2 Nausea with vomiting, unspecified; R19.7 Diarrhea, unspecified; Z11.52 Encounter for screening for COVID-19; Z72.0 Tobacco use
CPT/HCPCS: 36415; 71045; 80048; 80076; 80307; 81001; 81025; 83690; 83735; 84484; 85025; 87428; 93005; 96374; 96375; 99285; J1200; J2765; J7030

== ENCOUNTER 2024-09-28 11:02 | Emergency (ER) | payer SELFPAY ==
--- OUTSIDE RECORDS SUMMARY | 2024-09-28 11:08 | XMS REPORT | Continuity of Care Document ---
Author Name Unknown Address [address] [facility] [address] [place] [address] [facility] Address [address] 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 Name Role Phone KRISTOPHER MIRAMONTES Primary Care Physician Unavailab JANUARY Kumar Attending Clinician Unavailable JANUARY BOO Attending Clinician Unavailable January Boo MD Attending Clinician [phone] MARYLOU AMAYA Attending Clinician Unavailab MARYLOU Linda Attending Clinician Unavailab Marylou Linda DO Attending Clinician [phone] MARCOS DODD Attending Clinician Unavailable MARCOS DODD Attending Clinician Unavailable AKASH BERNAL Attending Clinician Unavailable Akash Bernal NP Attending Clinician [phone] Luis Carlos Posey MD Attending Clinician [phone] LUIS CARLOS POSEY Attending Clinician Unavailable JOY ANDREWS Attending Clinician UnavailIshmael Desouza Attending Clinician [phone] Joy Andrews MD Attending Clinician [phone] SAAD WATTS Attending Clinician Unavailable Saad Nance Attending Clinician [phone] Ishmael DOMÍNGUEZ Attending Clinician Unavailable LUIS CARLOS POSEY Admitting Clinician Unavailable Ishmael DOMÍNGUEZ Admitting Clinician Unavailable SAAD WATTS Admitting Clinician Unavailable Payers Payer Name Policy Type Policy Number Effective Date Expirati on Date Source [facility] [id number] 2022 00:00:00 Allergies, Adverse Reactions, Alerts Allergy Name Allergy Type Status Severity Reaction(s) Onset Date Inactive Date Treating Clinician Comments Source NO KNOWN ALLERGIE S Drug Class Active [facility] Social History Social Habit Start Date Stop Date Quantity Comments Source Gender identity [facility] Possible [facility] Exposure to SARS-CoV-2 (event) 2022-10-01 00:00:00 2022-10-11 10:02:00 Not sure [facility] Sex assigned at 2005 00:00:00 2005 00:00:00 [facility] Smoking Status Start Date Stop Date Source Tobacco smoking consumption unknown [facility] Medications Ordered Medication Name Filled Medication Name Start Date Stop Date Current Medication? Ordering Clinician Indication Dosage Frequency Signature (SIG) Comments Components Source ondansetron 4 mg disintegrat ing tablet 09-08 00:00: 00 Yes [id number] 4mg Take 1 tablet by mouth every 4 (four) hours as needed for Nausea and Vomiting (N/V). [facility] dicyclomine 20 mg tablet 09-08 00:00: 00 Yes [id number] 20mg Take 1 tablet by mouth 4 (four) times daily. [facility] naproxen 500 mg tablet 09-08 00:00: 00 09-19 04:59 :00 Yes [id number] 500mg Take 1 tablet by mouth in the morning and 1 tablet in the evening. Take with meals. Do all this for 10 days. [facility] ondansetron (ZOFRAN-ODT ) disintegrat ing tablet 4 mg 09-06 14:00: 00 09-06 13:03 :00 No 4mg 4 mg, Oral, ONCE, 1 dose, On 09/06/24 at 0900, Routine [facility] NaCl 0.9% (NS) IV infusion 1,000 mL 2022-05 16:45: 00 03-10 17:16 :00 No 1000mL at 999 mL/hr, Intravenou s, ONCE, 1 dose, On 03/10/23 at 1145, Routine [facility] dicyclomine (BENTYL) injection 20 mg 2022-05 015 15:00: 00 03-10 14:58 :00 No 20mg 20 mg, Intramuscu lar, ONCE NOW, 1 dose, On Sat03/10/23 at 1000, Routine [facility] NaCl 0.9% (NS) bolus infusion 1,000 mL 2022-05 15:00: 00 03-10 16:10 :00 No 1000mL at 999 mL/hr, 1,000 mL, IV Infusion, ONCE, 1 dose, On Sat03/10/23 at 1000, [facility] iopamidol (ISOVUE 370-500 mL) injection 45 mL 02-10 20:48: 00 02-10 20:48 :00 No [id number] 45mL 45 mL, Intravenou s, ONCE, 1 dose, On Sat02/10/23 at 1600, Routine [facility] NaCl 0.9% (NS) bolus infusion 1,000 mL 02-10 19:30: 00 02-10 19:51 :00 No 1000mL at 999 mL/hr, 1,000 mL, IV Infusion, ONCE, 1 dose, On Sat02/10/23 at 1430, [facility] ondansetron (ZOFRAN (PF)) injection 4 mg 02-10 19:15: 00 02-10 19:06 :00 No 4mg 4 mg, Slow IV Push, ONCE, 1 dose, On Sat02/10/23 at 1415, [facility] ondansetron 4 mg disintegrat ing tablet 02-10 00:00: 00 09-08 00:00 :00 No [id number] 4mg Take 1 tablet by mouth every 8 (eight) hours as needed for Nausea and Vomiting (N/V). [facility] NaCl 0.9% (NS) bolus infusion 1,000 mL 01-15 06:30: 00 01-15 07:30 :00 No 1000mL at 999 mL/hr, 1,000 mL, IV Infusion, ONCE, 1 dose, On Sat01/15/23 at 0130, STAT [facility] ketorolac (TORADOL) injection 15 mg 01-15 06:30: 00 01-15 05:45 :00 No 15mg 15 mg, Slow IV Push, ONCE, 1 dose, On Sat01/15/23 at 0130, JUAN JOSE [facility] Nitrofurant oin&Nit. Macrocryst 100 mg capsule 01-15 00:00: 00 01-21 04:59 :00 No [id number] 100mg Take 1 capsule by mouth in the morning and 1 capsule in the evening. Do all this for 5 days. [facility] dicyclomine 20 mg tablet 01-14 00:00: 00 09-08 00:00 :00 No [id number] 20mg Take 1 tablet by mouth 4 (four) times daily as needed for Abdominal pain. [facility] iopamidol (ISOVUE 300-500 mL) injection 75 mL 01-13 22:15: 00 01-13 22:15 :00 No [id number] 75mL 75 mL, Intravenou s, ONCE, 1 dose, On Sat01/13/23 at 1715, Routine [facility] NaCl 0.9% (NS) bolus infusion 1,000 mL 01-13 21:30: 00 01-13 23:16 :00 No 1000mL at 999 mL/hr, 1,000 mL, IV Infusion, ONCE, 1 dose, On Sat01/13/23 at 1630, STAT [facility] proMETHazin e (PHENERGAN) 25 mg in NaCl 0.9% (NS) 50 mL IV piggyback 01-13 20:30: 00 01-13 20:48 :00 No 25mg 25 mg, IV Piggyback, ONCE, 1 dose, On Sat01/13/23 at 1530, JUAN JOSE [facility] proMETHazin e 25 mg tablet 01-13 00:00: 00 Yes [id number] 25mg Take 1 tablet by mouth every 6 (six) hours as needed for Nausea and Vomiting (N/V). [facility] iopamidol (ISOVUE 370-500 mL) injection 100 mL 11-18 04:15: 00 11-18 04:15 :00 No [id number] 100mL 100 mL, Intravenou s, ONCE, 1 dose, On 11/17/22 at 2315, Routine [facility] ketorolac (TORADOL) injection 15 mg 11-18 03:15: 00 11-18 02:20 :00 No 15mg 15 mg, Slow IV Push, ONCE, 1 dose, On 11/17/22 at 2215, JUAN JOSE [facility] morpHINE (2 mg/mL) injection 4 mg 11-18 02:00: 00 11-18 02:00 :00 No 4mg 4 mg, Slow IV Push, ONCE, 1 dose, On 11/17/22 at 2100, STAT [facility] NaCl 0.9% (NS) bolus infusion 1,000 mL 11-18 01:45: 00 11-18 02:18 :00 No 1000mL at 999 mL/hr, 1,000 mL, IV Infusion, ONCE, 1 dose, On 11/17/22 at 204, STAT [facility] ondansetron (ZOFRAN (PF)) injection 4 mg 11-18 01:45: 00 11-18 00:53 :00 No 4mg 4 mg, Slow IV Push, ONCE, 1 dose, On 11/17/22 at 2045, JUAN JOSE [facility] ondansetron 4 mg disintegrat ing tablet 11-17 00:00: 00 02-10 00:00 :00 No [id number] 4mg Take 1 tablet by mouth every 8 (eight) hours as needed for Nausea and Vomiting (N/V). [facility] ketorolac (TORADOL) injection 15 mg 18 16:45: 00 10-11 15:52 :00 No 15mg 15 mg, Slow IV Push, ONCE, 1 dose, On Evelina 10/11/22 at 1145, [facility] NaCl 0.9% (NS) bolus infusion 1,000 mL 10-11 16:45: 00 10-11 16:12 :00 No 1000mL at 999 mL/hr, 1,000 mL, IV Infusion, ONCE, 1 dose, On Evelina 10/11/22 at 1145, [facility] ondansetron (ZOFRAN-ODT ) disintegrat ing tablet 4 mg 10-11 16:15: 00 10-11 15:17 :00 No 4mg 4 mg, Oral, ONCE, 1 dose, On Evelina 10/11/22 at 1115, Routine [facility] haloperidol lactate (HALDOL) injection 2.5 mg 10-11 15:45: 00 10-11 15:53 :00 No 2.5mg 2.5 mg, Intravenou s, ONCE, 1 dose, On Evelina 10/11/22 at 1045, [facility] haloperidol lactate (HALDOL) injection 2.5 mg 07-27 05:45: 00 07-27 05:38 :00 No 2.5mg 2.5 mg, Intravenou s, ONCE, 1 dose, On Evelina 07/26/22 at 2345, [facility] metoclopram yeimi HCl (REGLAN) injection 10 mg 07-27 05:45: 00 07-27 05:38 :00 No 10mg 10 mg, Slow IV Push, ONCE, 1 dose, On Evelina 07/26/22 at 2345, [facility] NaCl 0.9% (NS) bolus infusion 1,000 mL 07-27 05:30: 00 07-27 07:07 :00 No 1000mL at 999 mL/hr, 1,000 mL, IV Infusion, ONCE, 1 dose, On Evelina 07/26/22 at 2330, [facility] ondansetron (ZOFRAN (PF)) injection 4 mg 2023-0 3-03 05:00: 00 07-27 05:00 :00 No 4mg 4 mg, Slow IV Push, ONCE, 1 dose, On Evelina 07/26/22 at 2300, JUAN JOSE [facility] Vital Signs Vital Name Observation Time Observation Value Comments S judy Systolic blood pressure 2024-09-08 12:55:00 122 mm[Hg] [facility] Diastolic blood pressure 2024-09-08 12:55:00 76 mm[Hg] [facility] Heart rate 2024-09-08 12:55:00 56 /min [facility] Body temperature 2024-09-08 12:55:00 36.39 Ronna [facility] Respiratory rate 2024-09-08 12:55:00 16 /min [facility] Body height 2024-09-08 12:55:00 175.3 cm [facility] Body weight 2024-09-08 12:55:00 52.164 kg [facility] BMI 2024-09-08 12:55:00 16.98 kg/m2 [facility] Oxygen saturation in Arterial blood by Pulse oximetry 2024-09-08 12:55:00 98 /min [facility] Systolic blood pressure 2024-09-06 12:59:00 140 mm[Hg] [facility] Diastolic blood pressure 2024-09-06 12:59:00 78 mm[Hg] [facility] Heart rate 2024-09-06 12:59:00 72 /min [facility] Body temperature 2024-09-06 12:59:00 36.5 Ronna [facility] Respiratory rate 2024-09-06 12:59:00 16 /min [facility] Oxygen saturation in Arterial blood by Pulse oximetry 2024-09-06 12:59:00 100 /min [facility] Systolic blood pressure 2023-03-10 17:00:00 100 mm[Hg] [facility] Diastolic blood pressure 2023-03-10 17:00:00 72 mm[Hg] [facility] Heart rate 2023-03-10 17:00:00 60 /min [facility] Body temperature 2023-03-10 17:00:00 37.5 Ronna [facility] Respiratory rate 2023-03-10 17:00:00 18 /min [facility] Oxygen saturation in Arterial blood by Pulse oximetry 2023-03-10 17:00:00 99 /min [facility] Body height 2023-03-10 13:25:00 170.2 cm [facility] Body weight 2023-03-10 13:25:00 52.164 kg [facility] BMI 2023-03-10 13:25:00 18.01 kg/m2 [facility] Body mass index (BMI) [Percentile] Per age and sex 2023-03-10 13:25:00 7.10 % [facility] Systolic blood pressure 2023-02-10 20:00:00 142 mm[Hg] [facility] Diastolic blood pressure 2023-02-10 20:00:00 96 mm[Hg] [facility] Heart rate 2023-02-10 20:00:00 94 /min [facility] Respiratory rate 2023-02-10 20:00:00 19 /min [facility] Oxygen saturation in Arterial blood by Pulse oximetry 2023-02-10 20:00:00 99 /min [facility] Body temperature 2023-02-10 18:00:00 36.94 Ronna [facility] Body height 2023-02-10 18:00:00 175.3 cm [facility] Body weight 2023-02-10 18:00:00 54.341 kg [facility] BMI 2023-02-10 18:00:00 17.69 kg/m2 [facility] Body mass index (BMI) [Percentile] Per age and sex 2023-02-10 18:00:00 4.99 % [facility] Systolic blood pressure 2023-01-15 09:00:00 105 mm[Hg] [facility] Diastolic blood pressure 2023-01-15 09:00:00 60 mm[Hg] [facility] Heart rate 2023-01-15 09:00:00 52 /min [facility] Respiratory rate 2023-01-15 09:00:00 22 /min [facility] Oxygen saturation in Arterial blood by Pulse oximetry 2023-01-15 09:00:00 99 /min [facility] Body temperature 2023-01-15 04:14:00 37.28 Ronna [facility] Body height 2023-01-15 04:14:00 175.3 cm [facility] Body weight 2023-01-15 04:14:00 52.799 kg [facility] BMI 2023-01-15 04:14:00 17.19 kg/m2 [facility] Body mass index (BMI) [Percentile] Per age and sex 2023-01-15 04:14:00 2.55 % [facility] Systolic blood pressure 2023-01-14 16:45:00 123 mm[Hg] [facility] Diastolic blood pressure 2023-01-14 16:45:00 73 mm[Hg] [facility] Heart rate 2023-01-14 16:45:00 57 /min [facility] Body temperature 2023-01-14 16:45:00 37.33 Ronna [facility] Respiratory rate 2023-01-14 16:45:00 14 /min [facility] Body height 2023-01-14 16:45:00 175.3 cm [facility] Body weight 2023-01-14 16:45:00 58.968 kg [facility] BMI 2023-01-14 16:45:00 19.20 kg/m2 [facility] Body mass index (BMI) [Percentile] Per age and sex 2023-01-14 16:45:00 19.85 % [facility] Oxygen saturation in Arterial blood by Pulse oximetry 2023-01-14 16:45:00 99 /min [facility] Systolic blood pressure 2023-01-14 00:00:00 114 mm[Hg] [facility] Diastolic blood pressure 2023-01-14 00:00:00 67 mm[Hg] [facility] Heart rate 2023-01-14 00:00:00 57 /min [facility] Respiratory rate 2023-01-14 00:00:00 16 /min [facility] Oxygen saturation in Arterial blood by Pulse oximetry 2023-01-14 00:00:00 98 /min [facility] Body temperature 2023-01-13 19:34:00 36.5 Ronna [facility] Body height 2023-01-13 19:34:00 175.3 cm [facility] Body weight 2023-01-13 19:34:00 58.968 kg [facility] BMI 2023-01-13 19:34:00 19.20 kg/m2 [facility] Body mass index (BMI) [Percentile] Per age and sex 2023-01-13 19:34:00 19.86 % [facility] Systolic blood pressure 2022-11-18 04:10:00 98 mm[Hg] [facility] Diastolic blood pressure 2022-11-18 04:10:00 61 mm[Hg] [facility] Heart rate 2022-11-18 04:10:00 71 /min [facility] Body temperature 2022-11-18 04:10:00 37 Ronna [facility] Oxygen saturation in Arterial blood by Pulse oximetry 2022-11-18 04:10:00 97 /min [facility] Respiratory rate 2022-11-18 02:22:00 16 /min [facility] Body weight 2022-11-17 23:13:00 63.504 kg [facility] Systolic blood pressure 2022-10-11 16:12:00 133 mm[Hg] [facility] Diastolic blood pressure 2022-10-11 16:12:00 95 mm[Hg] [facility] Heart rate 2022-10-11 16:12:00 84 /min [facility] Respiratory rate 2022-10-11 16:12:00 16 /min [facility] Oxygen saturation in Arterial blood by Pulse oximetry 2022-10-11 16:12:00 98 /min [facility] Body temperature 2022-10-11 15:05:00 37 Ronna [facility] Body height 2022-10-11 15:05:00 175.3 cm [facility] Body weight 2022-10-11 15:05:00 63.504 kg [facility] BMI 2022-10-11 15:05:00 20.67 kg/m2 [facility] Body mass index (BMI) [Percentile] Per age and sex 2022-10-11 15:05:00 40.96 % [facility] Systolic blood pressure 2022-07-27 07:00:00 110 mm[Hg] [facility] Diastolic blood pressure 2022-07-27 07:00:00 68 mm[Hg] [facility] Heart rate 2022-07-27 07:00:00 60 /min [facility] Body temperature 2022-07-27 07:00:00 37.28 Ronna [facility] Respiratory rate 2022-07-27 07:00:00 17 /min [facility] Oxygen saturation in Arterial blood by Pulse oximetry 2022-07-27 07:00:00 96 /min [facility] Body height 2022-07-27 04:37:00 175.3 cm [facility] Body weight 2022-07-27 04:37:00 56.337 kg [facility] BMI 2022-07-27 04:37:00 18.34 kg/m2 [facility] Body mass index (BMI) [Percentile] Per age and sex 2022-07-27 04:37:00 11.37 % [facility] Procedures Procedure Date / Time Performed Performing Clinician Source POCT TEST 2024-09-08 13:20:00 Oumou Boo [facility] URINALYSIS 2024-09-08 13:15:00 January Boo [facility] URINE DRUG (IMMUNOASSAY) - COMPREHENSIVE DRUG SCREEN W/O REFLEX 2024-09-08 13:15:00 January Boo [facility] FENTANYL (IMMUNOASSAY) 2024-09-08 13:15:00 Philip Boo [facility] HB ECG ROUTINE & RHYTHM STRIP 2023-03-10 15:10:56 Akash Bernal [facility] URINALYSIS 2023-03-10 14:53:00 Akash Bernal [facility] POCT TEST 2023-03-10 14:53:00 Akash Bernal [facility] URINE DRUG (IMMUNOASSAY) - COMPREHENSIVE DRUG SCREEN W/O REFLEX 2023-03-10 14:53:00 Akash Bernal [facility] AC ABG + LACTIC ACID 2023-03-10 14:36:00 Selina Bernal [facility] CREATINE KINASE 2023-03-10 14:25:00 [facility] 2023-03-10 14:25:00 Akash Beranl [facility] COMP. METABOLIC PANEL ([id number]) 2023-03-10 14:25:00 Akash Bernal [facility] CBC WITH DIFF 2023-03-10 14:25:00 Akash Bernal [facility] CONSENT/REFUSAL FOR DIAGNOSIS AND TREATMENT 2023-03-10 13:19:54 Doctor Unassigned, Everson [facility] US OVARY TORSION 2023-02-10 22:25:00 Luis Carlos Posey Un [facility] CT ABDOMEN PELVIS W CONTRAST 2023-02-10 20:53:59 Luis Carlos Posey [facility] URINE DRUG (IMMUNOASSAY) - COMPREHENSIVE DRUG SCREEN 2023-02-10 20:28:00 Luis Carlos Posey [facility] URINALYSIS 2023-02-10 20:28:00 Luis Carlos Posey [facility] TEST, SERUM 2023-02-10 19:51:00 Luis Carlos Posey [facility] COMP. METABOLIC PANEL ([id number]) 2023-02-10 18:57:00 Luis Carlos Posey [facility] CBC WITH DIFF 2023-02-10 18:57:00 Luis Carlos Posey [facility] CONSENT/REFUSAL FOR DIAGNOSIS AND TREATMENT 2023-02-10 17:57:28 Doctor Unassigned, [place]on [facility] US OVARY TORSION 2023-01-15 08:49:25 Ishmael Domínguez U [facility] COMP. METABOLIC PANEL ([id number]) 2023-01-15 05:37:00 Ishmael Domínguez [facility] CBC WITH DIFF 2023-01-15 05:37:00 Ishmael Domínguez [facility] URINALYSIS 2023-01-15 05:37:00 Ishmael Domínguez [facility] CONSENT/REFUSAL FOR DIAGNOSIS AND TREATMENT 2023-01-15 04:02:38 Doctor Unassigned, [place]on [facility] CONSENT/REFUSAL FOR DIAGNOSIS AND TREATMENT 2023-01-14 17:36:09 Doctor Unassigned, [place] [facility] CONSENT/REFUSAL FOR DIAGNOSIS AND TREATMENT 2023-01-14 16:41:53 Doctor Unassigned, [place] [facility] CT ABDOMEN PELVIS W CONTRAST 2023-01-13 21:22:33 Saad Watts [facility] URINALYSIS 2023-01-13 20:48:00 Saad Watts [facility] POCT TEST 2023-01-13 20:47:00 Saad Watts [facility] LIPASE 2023-01-13 20:39:00 Saad Watts [facility] COMP. METABOLIC PANEL ([id number]) 2023-01-13 20:39:00 Saad Watts [facility] CBC WITH DIFF 2023-01-13 20:39:00 Saad Watts [facility] CONSENT/REFUSAL FOR DIAGNOSIS AND TREATMENT 2023-01-13 19:21:26 Doctor Unassigned, [place] [facility] CT ABDOMEN PELVIS W CONTRAST 2022-11-18 03:17:05 Ishmael Domínguez [facility] XR CHEST 1 VW 2022-11-18 03:08:22 Ishmael Domínguez [facility] POCT TEST 2022-11-18 01:00:00 Ishmael Domínguez e [facility] MAGNESIUM 2022-11-18 00:47:00 Ishmael Domínguez [facility] COMP. METABOLIC PANEL ([id number]) 2022-11-18 00:47:00 Ishmael Domínguez [facility] CBC WITH DIFF 2022-11-18 00:47:00 Ishmael Domínguez [facility] URINALYSIS 2022-11-18 00:47:00 Ishmael Domínguez [facility] LIPASE 2022-11-18 00:47:00 Ishmael Domínguez [facility] CONSENT/REFUSAL FOR DIAGNOSIS AND TREATMENT 2022-11-17 23:10:12 Doctor Unassigned, [place] [facility] CBC WITH DIFF 2022-10-11 15:44:00 Ishmael Domínguez [facility] POCT TEST 2022-10-11 15:13:00 Ishmael Domínguez [facility] URINALYSIS 2022-10-11 15:12:00 Ishmael Domínguez [facility] CONSENT/REFUSAL FOR DIAGNOSIS AND TREATMENT 2022-10-11 14:57:40 Doctor Unassigned, [place] [facility] POCT TEST 2022-07-27 06:05:00 Esme Amaya ra [facility] URINALYSIS 2022-07-27 06:03:00 [facility]REATMENT 2022-07-27 04:23:13 Doctor Unassigned, [place] [facility] NOTICE OF PRIVACY PRACTICES 2022-07-27 04:22:45 Doctor Unassigned, [place] [facility] Encounters Start Date/Time End Date/Time Encounter Type Admission Type Attending [facility] Care Facility Care Department Encounter ID Source 2024-09-08 07:56:00 2024-09-08 09:28:00 Emergency X JANUARY BOO DONNELL [facility] ERT [id number] [facility] 2024-09-08 07:56:00 2024-09-08 09:28:00 Emergency January Boo [facility] [id number] [id number] [id number] [id number] [facility] 2024-09-06 08:00:00 2024-09-06 09:27:00 Emergency X MARYLOU AMAYA SANDRA [facility] ERT [id number] [facility] 2024-09-06 08:00:00 2024-09-06 09:27:00 Emergency Marylou Amaya [facility] [id number] [id number] [id number] [id number] [facility] 2024-08-06 12:50:00 2024-08-06 14:44:00 Emergency X MARCOS DODD ERICCA [facility] ERT [id number] [facility] 2023-03-10 08:26:00 2023-03-10 12:18:00 Emergency X AKASH BERNAL [facility] ERT [id number] [facility] 2023-03-10 08:26:00 2023-03-10 12:18:00 Emergency Akash Bernal [facility] [id number] [id number] [id number] [facility] 2023-02-10 13:02:00 2023-02-10 18:18:00 Emergency Luis Carlos Posey [facility] [id number] [id number] [id number] [id number] [facility] 2023-02-10 13:02:00 2023-02-10 18:18:00 Emergency X LUIS CARLOS POSEY [facility] ERT [id number] [facility] 2023-01-14 23:18:00 2023-01-15 04:40:00 Emergency X JOY ANDREWS [facility] ERT [id number] [facility] 2023-01-14 23:18:00 2023-01-15 04:40:00 Emergency SangIshmael LorenaJoy miles [facility] [id number] [id number] [id number] [facility] 2023-01-14 11:48:00 2023-01-14 13:39:00 Emergency X SAAD WATTS [facility] ERT [id number] [facility] 2023-01-14 11:48:00 2023-01-14 13:39:00 Emergency Saad Watts [facility] [id number] [id number] [id number] [id number] [facility] 2023-01-13 14:37:00 2023-01-13 19:09:00 Emergency X SAAD WATTS [facility] ERT [id number] [facility] 2023-01-13 14:37:00 2023-01-13 19:09:00 Emergency Saad Watts [facility] [id number] [id number] [id number] [id number] [facility] 2022-11-17 18:15:00 2022-11-17 23:22:00 Emergency X Ishmael DOMÍNGUEZ [facility] ERT [id number] [facility] 2022-11-17 18:15:00 2022-11-17 23:22:00 Emergency SangIshmael [facility] [id number] [id number] [id number] [id number] [facility] 2022-10-11 10:09:00 2022-10-11 11:41:00 Emergency X SANGIshmael [facility] ERT [id number] [facility] 2022-10-11 10:09:00 2022-10-11 11:41:00 Emergency Ishmael Domínguez [facility] [id number] [id number] [id number] [facility] 2022-07-26 22:43:00 2022-07-27 01:14:00 Emergency X MARYLOU AMAYA [facility] ERT [id number] [facility] 2022-07-26 22:43:00 2022-07-27 01:14:00 Emergency Marylou Amaya [facility] [id number] [id number] [facility] Results Test Description Test Time Test Comments Results Result Co mments Source [facility] (36881)2023-03-10 14:57:13* Test Item Value Reference Range Interpretation Comme nts NA (test code = 2661242358) 141 mmol/L 135-145 K (test code = 5522195401) 3.5 mmol/L 3.5-5.0 CL (test code = 8247179529) 105 mmol/L 98-108 CO2 TOTAL (test code = 8328684003) 19 mmol/L 23-31 L AGAP (test code = 0935402334) 17 2-16 H BUN (test code = 1095850319) 10 mg/dL 7-23 GLUCOSE (test code = 0232600235) 160 mg/dL 70-110 H CREATININE (test code = 3360735739) 0.63 mg/dL 0.50-1.04 TOTAL BILI (test code = 9639129550) 0.5 mg/dL 0.1-1.1 CALCIUM (test code = 1198285650) 10.0 mg/dL 8.6-10.6 T PROTEIN (test code = 2064484341) 7.9 g/dL 6.3-8.2 ALBUMIN (test code = 5178761317) 4.7 g/dL 3.5-5.0 ALK PHOS (test code = 1311047858) 79 U/L 34-122 ALTv (test code = 1742-6) 19 U/L 5-35 AST(SGOT) (test code = 7504263438) 23 U/L 13-40 eGFR (test code = 1003174977) 123.1 mL/min/1.73m2 BREANNA (test code = BREANNA) Association [...] imaging tests). Lab Interpretation (test code = 31689-7) [facility] 14:56:53* Test Item Value Reference Range Interpretation Comme nts LIPASE (test code = 7663642243) 48 U/L 0-220 Lab Interpretation (test cod e = 09058-6) Normal [facility] [id number] 14:56:53* Test Item Value Reference Range Interpretation Comme nts CK (test code = 5609853310) 58 U/L 33-194 Lab Interpretation (test cod e = 20702-0) Normal [facility] [id number] 14:53:00* Test Item Value Reference Range Interpretation Comme nts POCT PREG (test code = 1605) Negative On board controls acceptable with C Line (test code = 3574) Yes POCT PREG LOT # (test code = 3575) [id number] POCT PREG TEST DATE ( test code = 3576) 05/29/2024 Lab Interpretation (test cod e = 56733-4) Normal [facility] WITH [id number] 14:43:54* Test Item Value Reference Range Interpretation [...] 34.2 g/dL 32.0-36.0 RDW-SD (test code = 55633-1) 41.4 fL 38.5-49.0 RDW-CV (test code = 788-0) 11.8 % 11.5-14.0 PLT (test code = 777-3) 304 See_Comment [Automated message] The system which generated this result transmitted reference range: 135 - 361 10*3/?L. The reference range was not used to interpret this result as normal/abnormal. MPV (test code = 96440-3) 10.9 fL 9.4-13.3 NRBC/100 WBC (test code = 8997581826) 0.0 See_Comment [Automated message] The system which generated this result transmitted reference range: 0.0 - 10.0 /100 WBCs. The reference range was not used to interpret this result as normal/abnormal. NRBC x10^3 (test code = 6043420904) See_Comment [Automated message] The system which generated this result transmitted reference range: 10*3/?L. The reference range was not used to interpret this result as normal/abnormal. GRAN MAT (NEUT) % (test code = 770-8) 90.8 % IMM GRAN % (test code = 9246546049) 0.30 % LYMPH % (test code = 736-9) 5.3 % MONO % (test code = 5905-5) 3.3 % EOS % (test code = 713-8) 0.0 % BASO % (test code = 706-2) 0.3 % GRAN MAT x10^3(ANC) (test code = 8641028322) 13.38 10*3/uL 1.50-10.30 H IMM GRAN x10^3 (test code = 0381479509) 0.05 10*3/uL 0.00-0.06 LYMPH x10^3 (test code = 731-0) 0.78 10*3/uL 0.70-7.40 MONO x10^3 (test code = 742-7) 0.49 10*3/uL 0.00-0.50 EOS x10^3 (test code = 711-2) 0.00-0.40 BASO x10^3 (test code = 704-7) 0.04 10*3/uL 0.00-0.10 Lab Interpretation (test code = 21125-8) Abnormal [facility], [id number] 20:11:53* Test Item Value Reference Range Interpretation Comme nts PREG SERUM (test code = 9904940204) Negative BREANNA (test code = BREANNA) Less than 10 IU/L. ?If low titer or ectopic is suspected, resubmit specimen in 48-72 hours. [facility]OLIC [facility] (66793)2023-02-10 19:31:01* Test Item Value Reference Range Interpretation Comme nts NA (test code = 0751916861) 140 mmol/L 135-145 K (test code = 2726018132) 4.0 mmol/L 3.5-5.0 CL (test code = 3854573857) 111 mmol/L 98-108 H CO2 TOTAL (test code = 1815850748) 17 mmol/L 23-31 L AGAP (test code = 9871420538) 12 2-16 BUN (test code = 9017202320) 8 mg/dL 7-23 GLUCOSE (test code = 6679882549) 136 mg/dL 70-110 H CREATININE (test code = 7407522311) 0.70 mg/dL 0.50-1.04 TOTAL BILI (test code = 9113768269) 0.3 mg/dL 0.1-1.1 CALCIUM (test code = 1026855368) 9.8 mg/dL 8.6-10.6 T PROTEIN (test code = 3649265141) 8.0 g/dL 6.3-8.2 ALBUMIN (test code = 1857490750) 4.7 g/dL 3.5-5.0 ALK PHOS (test code = 0842103337) 92 U/L 34-122 ALTv (test code = 1742-6) 17 U/L 5-35 AST(SGOT) (test code = 6529465074) 26 U/L 13-40 eGFR (test code = 4278111749) 109.0 mL/min/1.73m2 BREANNA (test code = BREANNA) [...] imaging tests). Lab Interpretation (test code = 01906-1) Abnormal [facility] WITH [id number] 19:20:02* Test Item Value Reference Range Interpretation [...] 34.4 g/dL 32.0-36.0 RDW-SD (test code = 81060-9) 42.3 fL 38.5-49.0 RDW-CV (test code = 788-0) 12.0 % 11.5-14.0 PLT (test code = 777-3) 315 See_Comment [Automated message] The system which generated this result transmitted reference range: 135 - 361 10*3/?L. The reference range was not used to interpret this result as normal/abnormal. MPV (test code = 33880-7) 10.3 fL 9.4-13.3 NRBC/100 WBC (test code = 4682621850) 0.0 See_Comment [Automated message] The system which generated this result transmitted reference range: 0.0 - 10.0 /100 WBCs. The reference range was not used to interpret this result as normal/abnormal. NRBC x10^3 (test code = 0276330991) See_Comment [Automated message] The system which generated this result transmitted reference range: 10*3/?L. The reference range was not used to interpret this result as normal/abnormal. GRAN MAT (NEUT) % (test code = 770-8) 78.0 % IMM GRAN % (test code = 1280615471) 0.40 % LYMPH % (test code = 736-9) 14.7 % MONO % (test code = 5905-5) 6.4 % EOS % (test code = 713-8) 0.2 % BASO % (test code = 706-2) 0.3 % GRAN MAT x10^3(ANC) (test code = 5637915760) 10.50 10*3/uL 1.50-10.30 H IMM GRAN x10^3 (test code = 9586838977) 0.06 10*3/uL 0.00-0.06 LYMPH x10^3 (test code = 731-0) 1.98 10*3/uL 0.70-7.40 MONO x10^3 (test code = 742-7) 0.86 10*3/uL 0.00-0.50 H EOS x10^3 (test code = 711-2) 0.03 10*3/uL 0.00-0.40 BASO x10^3 (test code = 704-7) 0.04 10*3/uL 0.00-0.10 Lab Interpretation (test code = 09865-7) Abnormal [facility]. METABOLIC PANEL (61178)2023-01-15 06:02:07* Test Item Value Reference Range Interpretation Comme nts NA (test code = 5937700103) 143 mmol/L 135-145 K (test code = 3520227137) 3.7 mmol/L 3.5-5.0 CL (test code = 0257027840) 104 mmol/L 98-108 CO2 TOTAL (test code = 9642180764) 29 mmol/L 23-31 AGAP (test code = 0252712144) 10 2-16 BUN (test code = 3417607629) 19 mg/dL 7-23 GLUCOSE (test code = 9007872813) 104 mg/dL 70-110 CREATININE (test code = 4626252965) 0.80 mg/dL 0.50-1.04 TOTAL BILI (test code = 3458591409) 0.4 mg/dL 0.1-1.1 CALCIUM (test code = 6473994472) 9.6 mg/dL 8.6-10.6 T PROTEIN (test code = 3237966739) 7.7 g/dL 6.3-8.2 ALBUMIN (test code = 4444962864) 4.6 g/dL 3.5-5.0 ALK PHOS (test code = 6319387794) 59 U/L 34-122 ALTv (test code = 1742-6) 17 U/L 5-35 AST(SGOT) (test code = 3642098408) 24 U/L 13-40 eGFR (test code = 3175604062) 93.4 mL/min/1.73m2 BREANNA (test code = BREANNA) [...] or urine or abnormalities in imaging tests). [facility] WITH [id number] 05:49:10* Test Item Value Reference Range Interpretation Comme nts WBC (test code = 6690-2) 10.32 See_Comment [Automated shopa] The system which generated this result transmitted reference range: 4.50 - 13.50 10*3/?L. The reference range was not used to interpret this result as normal/abnormal. RBC (test code = 789-8) 4.03 See_Comment L [Automated shopa] The system which generated this result transmitted [...] 34.0 g/dL 32.0-36.0 RDW-SD (test code = 52560-0) 43.1 fL 38.5-49.0 RDW-CV (test code = 788-0) 12.2 % 11.5-14.0 PLT (test code = 777-3) 269 See_Comment [Automated shopa] The system which generated this result transmitted reference range: 135 - 361 10*3/?L. The reference range was not used to interpret this result as normal/abnormal. MPV (test code = 86741-1) 10.2 fL 9.4-13.3 NRBC/100 WBC (test code = 3290808313) 0.0 See_Comment [Automated me ssage] The system which generated this result transmitted reference range: 0.0 - 10.0 /100 WBCs. The reference range was not used to interpret this result as normal/abnormal. NRBC x10^3 (test code = 8753854570) See_Comment [Automated messa ge] The system which generated this result transmitted reference range: 10*3/?L. The reference range was not used to interpret this result as normal/abnormal. GRAN MAT (NEUT) % (test code = 770-8) 76.5 % IMM GRAN % (test code = 9658900722) 0.30 % LYMPH % (test code = 736-9) 14.8 % MONO % (test code = 5905-5) 8.2 % EOS % (test code = 713-8) 0.0 % BASO % (test code = 706-2) 0.2 % GRAN MAT x10^3(ANC) (test code = 0613271752) 7.89 10*3/uL 1.50-10.30 IMM GRAN x10^3 (test code = 8961170038) 0.03 10*3/uL 0.00-0.06 LYMPH x10^3 (test code = 731-0) 1.53 10*3/uL 0.70-7.40 MONO x10^3 (test code = 742-7) 0.85 10*3/uL 0.00-0.50 H EOS x10^3 (test code = 711-2) 0.00-0.40 BASO x10^3 (test code = 704-7) 0.00-0.10 Lab Interpretation (test code = 09055-7) [facility]normal [facility] (63402)2023-01-13 21:14:31* Test Item Value Reference Range Interpretation Comme nts NA (test code = 4270909123) 142 mmol/L 135-145 K (test code = 8057777899) 3.3 mmol/L 3.5-5.0 L CL (test code = 7503727317) 105 mmol/L 98-108 CO2 TOTAL (test code = 8432197698) 18 mmol/L 23-31 L AGAP (test code = 9841635394) 19 2-16 H BUN (test code = 2623043455) 14 mg/dL 7-23 GLUCOSE (test code = 7935806714) 161 mg/dL 70-110 H CREATININE (test code = 0390196926) 0.72 mg/dL 0.50-1.04 TOTAL BILI (test code = 1414804071) 0.6 mg/dL 0.1-1.1 CALCIUM (test code = 6644872456) 10.4 mg/dL 8.6-10.6 T PROTEIN (test code = 9166195317) 8.4 g/dL 6.3-8.2 H ALBUMIN (test code = 8901036202) 4.9 g/dL 3.5-5.0 ALK PHOS (test code = 5107972197) 72 U/L 34-122 ALTv (test code = 1742-6) 33 U/L 5-35 AST(SGOT) (test code = 4816724892) 26 U/L 13-40 eGFR (test code = 2877331870) 105.5 mL/min/1.73m2 BREANNA (test code = BREANNA) [...] imaging tests). Lab Interpretation (test code = 69667-6) [facility] 21:06:28* Test Item Value Reference Range Interpretation Comme nts LIPASE (test code = 4038574614) 28 U/L 0-220 Lab Interpretation (test cod e = 50579-9) Normal [facility] WITH [id number] 20:55:10* Test Item Value Reference Range Interpretation [...] 35.5 g/dL 32.0-36.0 RDW-SD (test code = 86621-8) 40.0 fL 38.5-49.0 RDW-CV (test code = 788-0) 12.0 % 11.5-14.0 PLT (test code = 777-3) 308 See_Comment [Automated message] The system which generated this result transmitted reference range: 135 - 361 10*3/?L. The reference range was not used to interpret this result as normal/abnormal. MPV (test code = 21907-7) 10.8 fL 9.4-13.3 NRBC/100 WBC (test code = 3891296851) 0.0 See_Comment [Automated message] The system which generated this result transmitted reference range: 0.0 - 10.0 /100 WBCs. The reference range was not used to interpret this result as normal/abnormal. NRBC x10^3 (test code = 3273247455) See_Comment [Automated message] The system which generated this result transmitted reference range: 10*3/?L. The reference range was not used to interpret this result as normal/abnormal. GRAN MAT (NEUT) % (test code = 770-8) 88.1 % IMM GRAN % (test code = 5778506613) 0.30 % LYMPH % (test code = 736-9) 6.7 % MONO % (test code = 5905-5) 4.7 % EOS % (test code = 713-8) 0.0 % BASO % (test code = 706-2) 0.2 % GRAN MAT x10^3(ANC) (test code = 2965001779) 10.65 10*3/uL 1.50-10.30 H IMM GRAN x10^3 (test code = 1169514804) 0.04 10*3/uL 0.00-0.06 LYMPH x10^3 (test code = 731-0) 0.81 10*3/uL 0.70-7.40 MONO x10^3 (test code = 742-7) 0.57 10*3/uL 0.00-0.50 H EOS x10^3 (test code = 711-2) 0.00-0.40 BASO x10^3 (test code = 704-7) 0.03 10*3/uL 0.00-0.10 Lab Interpretation (test code = 11948-8) Abnormal [facility] [id number] 20:47:00* Test Item Value Reference Range Interpretation Comme nts POCT PREG (test code = 1605) Negative On board controls acceptable with C Line (test code = 3574) Yes POCT PREG LOT # (test code = 3575) [id number] POCT PREG TEST DATE ( test code = 3576) 2024-05-29 Lab Interpretation (test cod e = 54752-1) Normal [facility] WITH [id number] 02:16:05* Test Item Value Reference Range Interpretation [...] 34.3 g/dL 32.0-36.0 RDW-SD (test code = 16899-3) 42.6 fL 38.5-49.0 RDW-CV (test code = 788-0) 12.4 % 11.5-14.0 PLT (test code = 777-3) 339 See_Comment [Automated message] The system which generated this result transmitted reference range: 135 - 361 10*3/?L. The reference range was not used to interpret this result as normal/abnormal. MPV (test code = 65624-1) 10.8 fL 9.4-13.3 NRBC/100 WBC (test code = 1613236034) 0.0 See_Comment [Automated message] The system which generated this result transmitted reference range: 0.0 - 10.0 /100 WBCs. The reference range was not used to interpret this result as normal/abnormal. NRBC x10^3 (test code = 6108215959) See_Comment [Automated message] The system which generated this result transmitted reference range: 10*3/?L. The reference range was not used to interpret this result as normal/abnormal. GRAN MAT (NEUT) % (test code = 770-8) 88.1 % IMM GRAN % (test code = 4377049875) 0.50 % LYMPH % (test code = 736-9) 5.7 % MONO % (test code = 5905-5) 5.2 % EOS % (test code = 713-8) 0.2 % BASO % (test code = 706-2) 0.3 % GRAN MAT x10^3(ANC) (test code = 2999903388) 15.48 10*3/uL 1.50-10.30 H IMM GRAN x10^3 (test code = 3815904011) 0.08 10*3/uL 0.00-0.06 H LYMPH x10^3 (test code = 731-0) 1.01 10*3/uL 0.70-7.40 MONO x10^3 (test code = 742-7) 0.92 10*3/uL 0.00-0.50 H EOS x10^3 (test code = 711-2) 0.04 10*3/uL 0.00-0.40 BASO x10^3 (test code = 704-7) 0.06 10*3/uL 0.00-0.10 Lab Interpretation (test code = 76050-5) Abnormal [facility] 01:53:23* Test Item Value Reference Range Interpretation Comme nts MAGNESIUM (test code = 5317106470) 1.8 mg/dL 1.7-2.4 Lab Interpretation (test cod e = 38302-4) Normal [facility] (69133)2022-11-18 01:53:02* Test Item Value Reference Range Interpretation Comme nts NA (test code = 0984802465) 144 mmol/L 135-145 K (test code = 9400828718) 3.6 mmol/L 3.5-5.0 CL (test code = 6217432151) 106 mmol/L 98-108 CO2 TOTAL (test code = 5635372275) 22 mmol/L 23-31 L AGAP (test code = 0515323934) 16 2-16 BUN (test code = 2129606788) 9 mg/dL 7-23 GLUCOSE (test code = 7203921329) 146 mg/dL 70-110 H CREATININE (test code = 2219712330) 0.72 mg/dL 0.50-1.04 TOTAL BILI (test code = 0810401866) 0.7 mg/dL 0.1-1.1 CALCIUM (test code = 5408641350) 10.0 mg/dL 8.6-10.6 T PROTEIN (test code = 9748140163) 7.9 g/dL 6.3-8.2 ALBUMIN (test code = 0088488156) 4.7 g/dL 3.5-5.0 ALK PHOS (test code = 8850533067) 80 U/L 34-122 ALTv (test code = 1742-6) 18 U/L 5-35 AST(SGOT) (test code = 4510412362) 22 U/L 13-40 eGFR (test code = 9361908461) 105.5 mL/min/1.73m2 BREANNA (test code = BREANNA) [...] imaging tests). Lab Interpretation (test code = 30245-9) [facility] 01:52:42* Test Item Value Reference Range Interpretation Comme nts LIPASE (test code = 3296020005) 36 U/L 0-220 Lab Interpretation (test cod e = 31028-5) Normal [facility] [id number] 01:00:00* Test Item Value Reference Range Interpretation Comme nts POCT PREG (test code = 1605) Negative On board controls acceptable with C Line (test code = 3574) Yes Lab Interpretation (test cod e = 69760-5) Normal [facility] WITH [id number] 16:20:58* Test Item Value Reference Range Interpretation Comme nts WBC (test code = 6690-2) 9.56 See_Comment [Automated [employer]] The system which generated this result transmitted reference range: 4.50 - 13.50 10*3/?L. The reference range was not used to interpret this result as normal/abnormal. RBC (test code = 789-8) 4.36 See_Comment [Automated [employer]] The system which generated this result [...] 34.0 g/dL 32.0-36.0 RDW-SD (test code = 67702-8) 42.1 fL 38.5-49.0 RDW-CV (test code = 788-0) 12.1 % 11.5-14.0 PLT (test code = 777-3) 273 See_Comment [Automated [employer]] The system which generated this result transmitted reference range: 135 - 361 10*3/?L. The reference range was not used to interpret this result as normal/abnormal. MPV (test code = 98677-1) 10.6 fL 9.4-13.3 NRBC/100 WBC (test code = 7984150014) 0.0 See_Comment [Automated me ssage] The system which generated this result transmitted reference range: 0.0 - 10.0 /100 WBCs. The reference range was not used to interpret this result as normal/abnormal. NRBC x10^3 (test code = 9795994259) See_Comment [Automated messa ge] The system which generated this result transmitted reference range: 10*3/?L. The reference range was not used to interpret this result as normal/abnormal. GRAN MAT (NEUT) % (test code = 770-8) 84.4 % IMM GRAN % (test code = 8614529671) 0.40 % LYMPH % (test code = 736-9) 11.7 % MONO % (test code = 5905-5) 3.2 % EOS % (test code = 713-8) 0.1 % BASO % (test code = 706-2) 0.2 % GRAN MAT x10^3(ANC) (test code = 3792052505) 8.06 10*3/uL 1.50-10.30 IMM GRAN x10^3 (test code = 6371434022) 0.04 10*3/uL 0.00-0.06 LYMPH x10^3 (test code = 731-0) 1.12 10*3/uL 0.70-7.40 MONO x10^3 (test code = 742-7) 0.31 10*3/uL 0.00-0.50 EOS x10^3 (test code = 711-2) 0.00-0.40 BASO x10^3 (test code = 704-7) 0.00-0.10 Lab Interpretation (test code = 40370-1) Abnormal [facility] [id number] 15:13:00* Test Item Value Reference Range Interpretation Comme nts POCT PREG (test code = 1605) Negative On board controls acceptable with C Line (test code = 3574) Yes POCT PREG LOT # (test code = 3575) HCG [id number] POCT PREG TEST DATE (test code = 3576) 01/02/2024 Lab Interpretation (test cod e = 37648-9) Normal [facility] [id number] 06:05:00* Test Item Value Reference Range Interpretation Comme nts POCT PREG (test code = 1605) Negative On board controls acceptable with C Line (test code = 3574) Positive POCT PREG LOT # (test code = 3575) [id number] POCT PREG TEST DATE ( test code = 3576) 08/25/2023 Lab Interpretation (test cod e = 76557-8) Normal [facility] Notes Date/Time Note Provider Source 2024-09-08 09:26:56 Pt given printed and verbal discharge instructions regarding vomiting, marijuana use, menstrual pain, encouraged hydration, Prescriptions provided Pt verbalized understanding of instructions, pt awake alert oriented, resp reg unlabored, skin w/d, color appropriate for race, moves all ext well,pt encouraged to follow up with pcp. Advised to seek medical attention for new/prolonged/worsening of symptoms. Awake, alert oriented, resp reg unlabored, skin w/d, pt leaving amb with steady gait, in no apparent distress. [facility] 2024-09-08 07:53:01 Pt arrived ambulatory with mother for abdominal pain since this morning. Pt started her period this morning. Denies smoking weed recently [employer] Tawanna Vicente RN [facility] 2024-09-06 09:09:36 Pt still not in WR. Pt left before disposition [employer] Tawanna Vicente RN [facility] 2024-09-06 08:37:58 Physician to WR with PO fluids to PO challenge and patient not found in WR. [facility] 2024-09-06 07:58:06 Patient states: "This morning I started having vomiting, chills and diarrhea" Linda Alcaraz RN [facility] 2024-09-06 07:51:00 [facility] Emergency Department Note Patient Name: Harlan Ayala Date of : 2005 19 year old female Treatment Room: IN1/IN1 Primary Care Physician: Kristopher Miramontes Patient Escorted [...] Medical Screening Begins MARYLOU AMAYA DO -- 09/06/24 075 First Provider Evaluation MARYLOU AMAYA DO -- [...] she is able to tolerate by mouth. 908 - several attempts were made to locate [...] signed by: Marylou Amaya DO 09/06/24 0910 [facility] 2023-02-10 18:15:53 Formatting of this n ote might be different from the original. Pt wanting to leave. Advised that MD was typing up discharge if she wanted to wait for paperwork. Pt said she was not and would be going [facility] Pt left ER ambulatory, no signs of distress. [facility] Linda Alcaraz RN [facility] 2023-02-10 15:05:54 Formatting of this n ote might be different from the original. Pt c/o chest pain. Dr. Posey notified. EKG completed and turned into him. [facility] 2023-02-10 13:01:51 Formatting of this n ote might be different from the original. Harlan Ayala is a 17 year old female c/o n/v x 3 and "fishy" taste in mouth, denies other symptoms Rocio Rowe RN [facility] - Health 2023-02-10 12:56:00 Formatting of this n ote is different from the original. 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 METABOLIC PANEL (20667) - Abnormal NA 140 135 - 145 [...] No evidence of ovarian torsion. RL: 4231 [facility]: [address]78 End of Report ABDOMEN PELVIS W CONTRAST [...] cyst resolved. Preliminary Report Dictated by Resident: Johan Dominique MD., have reviewed this study and agree with the above report. Orders and Treatments Orders Placed This Encounter Procedures CT ABDOMEN PELVIS W CONTRAST US OVARY TORSION CBC WITH DIFF COMP. METABOLIC PANEL (46258) URINALYSIS URINE DRUG (IMMUNOASSAY) - COMPREHENSIVE DRUG [...] drugs. Prescription drug management. 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 Awake, alert oriented, resp reg unlabored, skin w/d, pt leaving amb with steady gait, in no apparent distress, Lianet Lora RN [facility] 2023-01-15 01:12:07 Formatting of this n ote might be different from the original. Gave report MONIKA Lora. Juanita Yates RN [facility] 2023-01-14 23:10:59 Formatting of this n ote [...] smoked marijuana this morning. Tawanna Vicente RN [facility] 2023-01-14 23:02:00 Formatting of this n ote is different from the original. [facility] Emergency Department Note Patient Name: Harlan Ayala Date of : 2005 17 year old female Treatment Room: [place] [address] Primary Care Physician: Kristopher Miramontes Patient Escorted by: Family [5] Mode of Arrival: Personal means [1] EMS Treatment Prior to ED Arrival: [employer] treatment: None Travel and Exposure Screening: Symptoms [...] SQ EPITH 5 HPF COMP. METABOLIC PANEL (02189) NA 143 135 - 145 mmol/L K [...] TORSION CBC WITH DIFF COMP. METABOLIC PANEL (42709) URINALYSIS Orders Placed This Encounter Medications ketorolac (TORADOL) injection 15 mg NaCl 0.9% (NS) bolus infusion 1,000 mL First Provider Eval: ED Events Date/Time Event User Comments 01/14/232319 Medical Screening Begins GWEN GOLDSTEIN -- 01/14/232319 First Provider Evaluation GWEN GOLDSTEIN -- No notes of EC Admission Criteria type on file. ED COURSE ED Course as of 01/15/236 e Jan 15, 2023 0406 US OVARY TORSION IMPRESSION ? Normal ultrasound appearance of the uterus. ? 3.5 cm hemorrhagic cyst in the left ovary without evidence for ovarian torsion or significant free fluid. [LS] ED Course User Index [LS] Joy Andrews MD Diagnosis/Impression as of 01/15/23415 LLQ pain Acute cystitis with hematuria Cyst [...] None Electronically signed by: Ishmael Domínguez PAC 01/15/23256 Associated attestation - Joy Andrews MD - [...] torsion or significant free fluid. RL: [id number] AFC: [id number] Course as of 01/15/23414Jan 15, 2023 0406 [...] on file 2. Contact information for follow-up [facility] Specialty: Obstetrics & Gynecology [address] [place] [address], [address] [facility] [id number] Instructions: As needed Kristopher Miramontes Specialty: IM-INTERNAL MEDICINE Relationship: PCP - General [place] [address] Instructions: As needed 3. macrobid for UTI 4. Return to ER if symptoms should worsen or fail to improve within 72 hours. Follow up with primary care provider within 48-72 hours. Take all medications as prescribed. Stay adequately hydrated. Joy Andrews M.D., FACEP Emergency Medicine [facility] 2023-01-14 13:38:14 Formatting of this n ote [...] noted. Accompanied by mother. Lauren Aguayo RN [facility] 2023-01-14 11:42:27 Formatting of this n ote might be different from the original. Harlan Ayala is a 17 year old female c/o abdominal pain since yesterday, n/v x2, states seen in ER yesterday for same, did not get meds filled from pharmacy Rocio Rowe RN [facility] 2023-01-13 19:08:07 Formatting of this n ote [...] in no apparent distress. Rocio Jones RN [facility] 2023-01-13 14:43:24 Formatting of this n ote might be different from the original. Patient asking for water, informed patient that since she is vomiting she cannot have water. Dianne Chatterjee RN [facility] 2023-01-13 14:32:19 Formatting of this n ote might be different from the original. Pt arrived via private car with c/o abd pain and vomiting that started last night. States used her inhaler last night. Shania Farah RN [facility]
--- NOTE | 2024-09-28 14:20 | ER ---
Nurse's Notes [facility] Name: Arianna Ayala Age: 19 yrs Sex: Female : 2005 Arrival Date: 09/28/2024 Time: 11:02 Bed IW9 Private MD: Diagnosis: Abdominal pain, Generalized Presentation: 09/28 11:48 Chief complaint: Patient states: she has been having abdominal and throat burning for ap3 three weeks. patient states "it feels like there is a forest fire all up in my guts." patient currently rates her pain as a 10/10 on the pain scale. Coronavirus screen: At this time, the client does not indicate any symptoms associated with coronavirus-19. Ebola Screen: No symptoms or risks identified at this time. Initial Sepsis Screen: Does the patient meet any 2 criteria? No. Patient's initial sepsis screen is negative. Does the patient have a suspected source of infection? No. Patient's initial sepsis screen is negative. Risk Assessment: Do you want to hurt yourself or someone else? Patient reports no desire to harm self or others. Onset of symptoms is unknown. 11:48 Method Of Arrival: Ambulatory ap3 11:48 Acuity: DAVE 3 ap3 Triage Assessment: 11:51 General: Appears uncomfortable, Behavior is crying, restless. Pain: Complains of pain ap3 in abdomen. Neuro: Level of Consciousness is awake, alert, obeys commands, Oriented to person, place, time, situation. Cardiovascular: Patient's skin is warm and dry. Respiratory: Airway is patent Respiratory effort is even, unlabored, Respiratory pattern is regular, symmetrical. GI: Reports lower abdominal pain, upper abdominal pain. 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 Flu vaccine is not up to date. - Infectious Disease History:: Denies. - Social history:: Smoking status: Reported history of juuling and/or vaping. Screenin:[facility] ED Fall Risk Assessment (Adult) History of falling in the last 3 months, ap3 including since admission No falls in past 3 months (0 pts) Confusion or Disorientation No (0 pts) Intoxicated or Sedated No (0 pts) Impaired Gait No (0 pts) Mobility Assist Device Used No (0 pt) Altered Elimination No (0 pt) Score/Fall Risk Level 0 - 2 = Low Risk Oriented to surroundings, Maintained a safe environment, Educated pt \\T\\ family on fall prevention, incl call for assistance when getting out of bed, Assessed \\T\\ reinforced patient's understanding of fall precautions, Hourly rounding (assess needs \\T\\ fall precautionary measures) done, Used ambulatory aids as needed (educated on \\T\\ assisted with). Abuse screen: Denies threats or abuse. Nutritional screening: No deficits noted. Tuberculosis screening: No symptoms or risk factors identified. Vital Signs: 11:48 BP 130 / 81; Pulse 71; Resp 17; Temp 97.9; Pulse Ox 98% on R/A; Weight 53.07 kg; Height ap3 5 ft. 8 in. ; Pain 10/10; 11:48 Body Mass Index 17.79 (53.07 kg, 172.72 cm) ap3 11:48 Pain Scale: Adult ap3 ED Course: 11:05 Patient arrived in ED. im 11:12 Jennifer Barbosa PA-C is PHCP. sb4 11:12 Luis Carlos Posey MD is Attending Physician. sb4 11:50 Triage completed. ap3 11:51 Arm band placed on left wrist. ap3 Administered Medications: 14:54 Not Given (Patient Eloped): [id number] mg IVP once; dilute with 10 mL 0.9% NaCl; give sb4 over 2 minutes 14:54 Not Given (Patient Eloped): TORadol - [id number] mg IVP once sb4 14:54 Not Given (Patient Eloped): ondansetron 4 mg IVP once; over 2 minutes sb4 14:55 Not Given (Patient Eloped): ns 0.9% 1000 ml IV at 1 bolus Per protocol; to be given as sb4 a bolus over 60 minutes 14:55 Not Given (Patient Eloped): GI Cocktail without - (maaloxsuspension 30 ml, sb4 lidocaine mucous membrane liquid 2 % 15 ml) PO once Outcome: 14:19 Discharge ordered by . sb4 14:56 Eloped from waiting room, after seeing physician Time discovered patient gone: September 28 jl7 2024 at 14:19 14:58 Patient left the ED. [email or web address] Signatures: Fatuma Miramontes RN RN jl7 Veronica Rice RN RN Jennifer Sheffield, STEFANIE PALila sb4 Marcella Villarreal
--- NOTE | 2024-09-28 14:20 | EDPHYS ---
Physician Documentation [facility] Name: Arianna Ayala Age: 19 yrs Sex: Female : 2005 Arrival Date: 09/28/2024 Time: 11:02 Bed IW9 Private MD: ED Physician Luis Carlos Posey HPI: 09/28 13:02 This 19 yrs old Female presents to ER via Ambulatory with complaints of abdominal pain, sb4 sore throat. 13:02 Patient reports abdominal pain and sore throat for 3-4 days now. states the pain has sb4 gotten worse and can barely hold water down now. mom thinks she has an ulcer. no diarrhea. no blood in stool or vomit. no history of heavy alcohol or NSAID abuse. has taken OTC medications without significant relief in symptoms. 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 Flu vaccine is not up to date. - Infectious Disease History:: Denies. - Social history:: Smoking status: Reported history of juuling and/or vaping. ROS: 13:02 Constitutional: Negative for fever, chills, and weight loss, sb4 13:02 ENT: Positive for sore throat, 13:02 Abdomen/GI: Positive for abdominal pain, nausea and vomiting, 13:02 All other systems are negative, Exam: 13:02 Constitutional: The patient appears alert, awake, uncomfortable, sb4 13:05 Head/Face: Normocephalic, atraumatic. Eyes: Extra-ocular motions intact. Periorbital sb4 areas with no swelling, redness, or edema. Cardiovascular: Regular rate and rhythm with a normal S1 and S2. Respiratory: No increased work of breathing, no retractions or nasal flaring. 13:05 ENT: Posterior pharynx: is normal, 13:05 Abdomen/GI: Inspection: abdomen appears normal, Bowel sounds: normal, Palpation: soft, mild abdominal tenderness, in all quadrants, Vital Signs: 11:48 BP 130 / 81; Pulse 71; Resp 17; Temp 97.9; Pulse Ox 98% on R/A; Weight 53.07 kg; Height ap3 5 ft. 8 in. ; Pain 10/10; 11:48 Body Mass Index 17.79 (53.07 kg, 172.72 cm) ap3 11:48 Pain Scale: Adult ap3 MDM: 11:19 Medical Screening Exam initiated sb4 14:20 Data reviewed: vital signs, nurses notes. ED course: patient left after my assessment, sb4 prior to workup or treatment. Administered Medications: 14:54 Not Given (Patient Eloped): [id number] mg IVP once; dilute with 10 mL 0.9% NaCl; give sb4 over 2 minutes 14:54 Not Given (Patient Eloped): TORadol - [id number] mg IVP once sb4 14:54 Not Given (Patient Eloped): ondansetron 4 mg IVP once; over 2 minutes sb4 14:55 Not Given (Patient Eloped): ns 0.9% 1000 ml IV at 1 bolus Per protocol; to be given as sb4 a bolus over 60 minutes 14:55 Not Given (Patient Eloped): GI Cocktail without - (maaloxsuspension 30 ml, sb4 lidocaine mucous membrane liquid 2 % 15 ml) PO once Disposition: 17:08 Co-signature as Attending Physician, Luis Carlos Posey MD. [email or web address] Disposition Summary: 09/28/24 14:19 Discharge Ordered Notes: Location: Home sb4 Problem: new sb4 Symptoms: are unchanged sb4 Condition: Undetermined sb4 Diagnosis - Abdominal pain, Generalized sb4 Followup: sb4 - With: Emergency Department - When: As needed - Reason: Trouble breathing, Worsening of condition Forms: - Medication Reconciliation Form sb4 - Antibiotic Education sb4 - Prescription Opioid Use sb4 - Patient Portal Instructions sb4 - Leadership Thank You Letter sb4 Signatures: Dispatcher [employer] EDVeronica Lan RN RN ap3 Jennifer Barbosa PA-C PALila sb4 Luis Carlos Posey MD MD [email or web address] Corrections: (The following items were deleted from the chart) 11:57 11:57 CBC+H.LAB.BRZ ordered. EDMS EDMS 11:57 11:57 COMPREHENSIVE METABOLIC PANEL+C.LAB.BRZ ordered. EDMS EDMS 11:57 11:57 LIPASE+C.LAB.BRZ ordered. EDMS EDMS 11:57 11:57 Test, Urine+UC.LAB.BRZ ordered. EDMS EDMS 11:57 11:57 Group A Streptococcus Rapid Sc+I.LAB.BRZ ordered. EDMS EDMS 13:04 13:02 This 19 yrs old Female presents to ER via Ambulatory with complaints of Flu sb4 Symptoms. sb4 14:55 11:57 IV Saline Lock ordered. sb4 sb4 14:55 11:57 Labs collected and sent ordered. sb4 sb4
[2024-09-28 17:27] VITALS: BP 130/81; TEMP 97.9; O2SAT 98
== END 2024-09-28 14:58 | disposition home or self-care (01) ==
LOC: ER 11:02
DX: R10.84 Generalized abdominal pain (principal); R11.2 Nausea with vomiting, unspecified
CPT/HCPCS: 99281

== ENCOUNTER 2024-10-13 21:34 | Emergency (ER) | payer SELFPAY ==
--- OUTSIDE RECORDS SUMMARY | 2024-10-13 21:57 | XMS REPORT | Continuity of Care Document ---
Author Name Unknown Address [address] [facility] [address] [place] [address] [facility] Address [address] [facility] [place] [address] Care Team Providers Care Class A Regional Drivers Name Role Phone KRISTOPHER MIRAMONTES Primary Care Physician Unavailab JANUARY Kumar Attending Clinician Unavailable JANUARY BOO Attending Clinician Unavailable January Boo MD Attending Clinician [phone] MARYLOU AMAYA Attending Clinician Unavailab MARYLOU Linda Attending Clinician Unavailab Marylou Linda DO Attending Clinician [phone] MARCOS DODD Attending Clinician Unavailable MARCOS DODD Attending Clinician Unavailable AKASH BERNAL Attending Clinician Unavailable Akash Bernal NP Attending Clinician [phone] Luis Carlos Posey MD Attending Clinician [phone] LUIS CARLOS POSEY Attending Clinician Unavailable JOY ANDREWS Attending Clinician UnavailIshmael Desouza Attending Clinician [phone] Joy Andrews MD Attending Clinician [phone] SAAD WATTS Attending Clinician Unavailable Saad Nance Attending Clinician [phone] Ishmael DOMÍNGUEZ Attending Clinician Unavailable LUIS CARLOS POSEY Admitting Clinician Unavailable Ishmael DOMÍNGUEZ Admitting Clinician Unavailable SAAD WATTS Admitting Clinician Unavailable Payers Payer Name Policy Type Policy Number Effective Date Expirati on Date Source [facility] [id number] 2022 00:00:00 Allergies, Adverse Reactions, Alerts Allergy Name Allergy Type Status Severity Reaction(s) Onset Date Inactive Date Treating Clinician Comments Source NO KNOWN ALLERGIE S Drug Class Active [facility] Social History Social Habit Start Date Stop Date Quantity Comments Source Gender identity [facility] Exposure to SARS-CoV-2 (event) 2022-10-01 00:00:00 2022-10-11 10:02:00 Not sure [facility] Sex assigned at 2005 00:00:00 2005 00:00:00 [facility] Smoking Status Start Date Stop Date Source Tobacco smoking consumption unknown [facility] Medications Ordered Medication Name Filled Medication Name Start Date Stop Date Current Medication? Ordering Clinician Indication Dosage Frequency Signature (SIG) Comments Components Source ondansetron 4 mg disintegrat ing tablet 09-08 00:00: 00 Yes [id number] 4mg Take 1 tablet by mouth every 4 (four) hours as needed for Nausea and Vomiting (N/V). [facility] dicyclomine 20 mg tablet 09-08 00:00: 00 Yes [id number] 20mg Take 1 tablet by mouth 4 (four) times daily. [facility] naproxen 500 mg tablet 09-08 00:00: 00 09-19 04:59 :00 Yes [id number] 500mg Take 1 tablet by mouth in the morning and 1 tablet in the evening. Take with meals. Do all this for 10 days. [facility] ondansetron (ZOFRAN-ODT ) disintegrat ing tablet 4 mg 09-06 14:00: 00 09-06 13:03 :00 No 4mg 4 mg, Oral, ONCE, 1 dose, On 09/06/24 at 0900, Routine [facility] NaCl 0.9% (NS) IV infusion 1,000 mL 2022-05 16:45: 00 03-10 17:16 :00 No 1000mL at 999 mL/hr, Intravenou s, ONCE, 1 dose, On 03/10/23 at 1145, Routine [facility] dicyclomine (BENTYL) injection 20 mg 2022-05 015 15:00: 00 03-10 14:58 :00 No 20mg 20 mg, Intramuscu lar, ONCE NOW, 1 dose, On Sat03/10/23 at 1000, Routine [facility] NaCl 0.9% (NS) bolus infusion 1,000 mL 2022-05 15:00: 00 03-10 16:10 :00 No 1000mL at 999 mL/hr, 1,000 mL, IV Infusion, ONCE, 1 dose, On Sat03/10/23 at 1000, [facility] iopamidol (ISOVUE 370-500 mL) injection 45 mL 02-10 20:48: 00 02-10 20:48 :00 No [id number] 45mL 45 mL, Intravenou s, ONCE, 1 dose, On Sat02/10/23 at 1600, Routine [facility] NaCl 0.9% (NS) bolus infusion 1,000 mL 02-10 19:30: 00 02-10 19:51 :00 No 1000mL at 999 mL/hr, 1,000 mL, IV Infusion, ONCE, 1 dose, On Sat02/10/23 at 1430, [facility] ondansetron (ZOFRAN (PF)) injection 4 mg 02-10 19:15: 00 02-10 19:06 :00 No 4mg 4 mg, Slow IV Push, ONCE, 1 dose, On Sat02/10/23 at 1415, [facility] ondansetron 4 mg disintegrat ing tablet 02-10 00:00: 00 09-08 00:00 :00 No [id number] 4mg Take 1 tablet by mouth every 8 (eight) hours as needed for Nausea and Vomiting (N/V). [facility] NaCl 0.9% (NS) bolus infusion 1,000 mL 01-15 06:30: 00 01-15 07:30 :00 No 1000mL at 999 mL/hr, 1,000 mL, IV Infusion, ONCE, 1 dose, On Sat01/15/23 at 0130, STAT [facility] ketorolac (TORADOL) injection 15 mg 01-15 06:30: 00 01-15 05:45 :00 No 15mg 15 mg, Slow IV Push, ONCE, 1 dose, On Sat01/15/23 at 0130, JUAN JOSE [facility] Nitrofurant oin&Nit. Macrocryst 100 mg capsule 01-15 00:00: 00 01-21 04:59 :00 No [id number] 100mg Take 1 capsule by mouth in the morning and 1 capsule in the evening. Do all this for 5 days. [facility] dicyclomine 20 mg tablet 01-14 00:00: 00 09-08 00:00 :00 No [id number] 20mg Take 1 tablet by mouth 4 (four) times daily as needed for Abdominal pain. [facility] iopamidol (ISOVUE 300-500 mL) injection 75 mL 01-13 22:15: 00 01-13 22:15 :00 No [id number] 75mL 75 mL, Intravenou s, ONCE, 1 dose, On Sat01/13/23 at 1715, Routine [facility] NaCl 0.9% (NS) bolus infusion 1,000 mL 01-13 21:30: 00 01-13 23:16 :00 No 1000mL at 999 mL/hr, 1,000 mL, IV Infusion, ONCE, 1 dose, On Sat01/13/23 at 1630, STAT [facility] proMETHazin e (PHENERGAN) 25 mg in NaCl 0.9% (NS) 50 mL IV piggyback 01-13 20:30: 00 01-13 20:48 :00 No 25mg 25 mg, IV Piggyback, ONCE, 1 dose, On Sat01/13/23 at 1530, JUAN JOSE [facility] proMETHazin e 25 mg tablet 01-13 00:00: 00 Yes [id number] 25mg Take 1 tablet by mouth every 6 (six) hours as needed for Nausea and Vomiting (N/V). [facility] iopamidol (ISOVUE 370-500 mL) injection 100 mL 11-18 04:15: 00 11-18 04:15 :00 No [id number] 100mL 100 mL, Intravenou s, ONCE, 1 dose, On 11/17/22 at 2315, Routine [facility] ketorolac (TORADOL) injection 15 mg 11-18 03:15: 00 11-18 02:20 :00 No 15mg 15 mg, Slow IV Push, ONCE, 1 dose, On 11/17/22 at 2215, JUAN JOSE [facility] morpHINE (2 mg/mL) injection 4 mg 11-18 02:00: 00 11-18 02:00 :00 No 4mg 4 mg, Slow IV Push, ONCE, 1 dose, On 11/17/22 at 2100, STAT [facility] NaCl 0.9% (NS) bolus infusion 1,000 mL 11-18 01:45: 00 11-18 02:18 :00 No 1000mL at 999 mL/hr, 1,000 mL, IV Infusion, ONCE, 1 dose, On 11/17/22 at 204, STAT [facility] ondansetron (ZOFRAN (PF)) injection 4 mg 11-18 01:45: 00 11-18 00:53 :00 No 4mg 4 mg, Slow IV Push, ONCE, 1 dose, On 11/17/22 at 2045, JUAN JOSE [facility] ondansetron 4 mg disintegrat ing tablet 11-17 00:00: 00 02-10 00:00 :00 No [id number] 4mg Take 1 tablet by mouth every 8 (eight) hours as needed for Nausea and Vomiting (N/V). [facility] ketorolac (TORADOL) injection 15 mg 18 16:45: 00 10-11 15:52 :00 No 15mg 15 mg, Slow IV Push, ONCE, 1 dose, On Evelina 10/11/22 at 1145, [facility] NaCl 0.9% (NS) bolus infusion 1,000 mL 10-11 16:45: 00 10-11 16:12 :00 No 1000mL at 999 mL/hr, 1,000 mL, IV Infusion, ONCE, 1 dose, On Evelina 10/11/22 at 1145, [facility] ondansetron (ZOFRAN-ODT ) disintegrat ing tablet 4 mg 10-11 16:15: 00 10-11 15:17 :00 No 4mg 4 mg, Oral, ONCE, 1 dose, On Evelina 10/11/22 at 1115, Routine [facility] haloperidol lactate (HALDOL) injection 2.5 mg 10-11 15:45: 00 10-11 15:53 :00 No 2.5mg 2.5 mg, Intravenou s, ONCE, 1 dose, On Evelina 10/11/22 at 1045, [facility] haloperidol lactate (HALDOL) injection 2.5 mg 07-27 05:45: 00 07-27 05:38 :00 No 2.5mg 2.5 mg, Intravenou s, ONCE, 1 dose, On Evelina 07/26/22 at 2345, [facility] metoclopram yeimi HCl (REGLAN) injection 10 mg 07-27 05:45: 00 07-27 05:38 :00 No 10mg 10 mg, Slow IV Push, ONCE, 1 dose, On Evelina 07/26/22 at 2345, [facility] NaCl 0.9% (NS) bolus infusion 1,000 mL 07-27 05:30: 00 07-27 07:07 :00 No 1000mL at 999 mL/hr, 1,000 mL, IV Infusion, ONCE, 1 dose, On Evelina 07/26/22 at 2330, [facility] ondansetron (ZOFRAN (PF)) injection 4 mg 2023-0 3-03 05:00: 00 07-27 05:00 :00 No 4mg 4 mg, Slow IV Push, ONCE, 1 dose, On Evelina 07/26/22 at 2300, JUAN JOSE [facility] Vital Signs Vital Name Observation Time Observation Value Comments S judy Systolic blood pressure 2024-09-08 12:55:00 122 mm[Hg] [facility] Diastolic blood pressure 2024-09-08 12:55:00 76 mm[Hg] [facility] Heart rate 2024-09-08 12:55:00 56 /min Unive [facility] Body temperature 2024-09-08 12:55:00 36.39 Ronna [facility] Respiratory rate 2024-09-08 12:55:00 16 /min [facility] Body height 2024-09-08 12:55:[address] [facility] Body weight 2024-09-08 12:55:00 52.164 kg [facility] BMI 2024-09-08 12:55:00 16.98 kg/m2 [facility] Oxygen saturation in Arterial blood by Pulse oximetry 2024-09-08 12:55:00 98 /min [facility] Systolic blood pressure 2024-09-06 12:59:00 140 mm[Hg] [facility] Diastolic blood pressure 2024-09-06 12:59:00 78 mm[Hg] [facility] Heart rate 2024-09-06 12:59:00 72 /min [facility] Body temperature 2024-09-06 12:59:00 36.5 Ronna [facility] Respiratory rate 2024-09-06 12:59:00 16 /min [facility] Oxygen saturation in Arterial blood by Pulse oximetry 2024-09-06 12:59:00 100 /min [facility] Systolic blood pressure 2023-03-10 17:00:00 100 mm[Hg] [facility] Diastolic blood pressure 2023-03-10 17:00:00 72 mm[Hg] [facility] Heart rate 2023-03-10 17:00:00 60 /min [facility] Body temperature 2023-03-10 17:00:00 37.5 Ronna [facility] Respiratory rate 2023-03-10 17:00:00 18 /min [facility] Oxygen saturation in Arterial blood by Pulse oximetry 2023-03-10 17:00:00 99 /min [facility] Body height 2023-03-10 13:25:00 170.2 cm [facility] Body weight 2023-03-10 13:25:00 52.164 kg [facility] BMI 2023-03-10 13:25:00 18.01 kg/m2 [facility] Body mass index (BMI) [Percentile] Per age and sex 2023-03-10 13:25:00 7.10 % [facility] Systolic blood pressure 2023-02-10 20:00:00 142 mm[Hg] [facility] Diastolic blood pressure 2023-02-10 20:00:00 96 mm[Hg] [facility] Heart rate 2023-02-10 20:00:00 94 /min [facility] Respiratory rate 2023-02-10 20:00:00 19 /min [facility] Oxygen saturation in Arterial blood by Pulse oximetry 2023-02-10 20:00:00 99 /min [facility] Body temperature 2023-02-10 18:00:00 36.94 Ronna [facility] Body height 2023-02-10 18:00:00 175.3 cm [facility] Body weight 2023-02-10 18:00:00 54.341 kg [facility] BMI 2023-02-10 18:00:00 17.69 kg/m2 [facility] Body mass index (BMI) [Percentile] Per age and sex 2023-02-10 18:00:00 4.99 % [facility] Systolic blood pressure 2023-01-15 09:00:00 105 mm[Hg] [facility] Diastolic blood pressure 2023-01-15 09:00:00 60 mm[Hg] [facility] Heart rate 2023-01-15 09:00:00 52 /min [facility] Respiratory rate 2023-01-15 09:00:00 22 /min [facility] Oxygen saturation in Arterial blood by Pulse oximetry 2023-01-15 09:00:00 99 /min [facility] Body temperature 2023-01-15 04:14:00 37.28 Ronna [facility] Body height 2023-01-15 04:14:00 175.3 cm [facility] Body weight 2023-01-15 04:14:00 52.799 kg [facility] BMI 2023-01-15 04:14:00 17.19 kg/m2 [facility] Body mass index (BMI) [Percentile] Per age and sex 2023-01-15 04:14:00 2.55 % [facility] Systolic blood pressure 2023-01-14 16:45:00 123 mm[Hg] [facility] Diastolic blood pressure 2023-01-14 16:45:00 73 mm[Hg] [facility] Heart rate 2023-01-14 16:45:00 57 /min [facility] Body temperature 2023-01-14 16:45:00 37.33 Ronna [facility] Respiratory rate 2023-01-14 16:45:00 14 /min [facility] Body height 2023-01-14 16:45:00 175.3 cm [facility] Body weight 2023-01-14 16:45:00 58.968 kg [facility] BMI 2023-01-14 16:45:00 19.20 kg/m2 [facility] Body mass index (BMI) [Percentile] Per age and sex 2023-01-14 16:45:00 19.85 % [facility] Oxygen saturation in Arterial blood by Pulse oximetry 2023-01-14 16:45:00 99 /min [facility] Systolic blood pressure 2023-01-14 00:00:00 114 mm[Hg] [facility] Diastolic blood pressure 2023-01-14 00:00:00 67 mm[Hg] [facility] Heart rate 2023-01-14 00:00:00 57 /min [facility] Respiratory rate 2023-01-14 00:00:00 16 /min [facility] Oxygen saturation in Arterial blood by Pulse oximetry 2023-01-14 00:00:00 98 /min [facility] Body temperature 2023-01-13 19:34:00 36.5 Ronna [facility] Body height 2023-01-13 19:34:00 175.3 cm [facility] Body weight 2023-01-13 19:34:00 58.968 kg [facility] BMI 2023-01-13 19:34:00 19.20 kg/m2 [facility] Body mass index (BMI) [Percentile] Per age and sex 2023-01-13 19:34:00 19.86 % [facility] Systolic blood pressure 2022-11-18 04:10:00 98 mm[Hg] [facility] Diastolic blood pressure 2022-11-18 04:10:00 61 mm[Hg] [facility] Heart rate 2022-11-18 04:10:00 71 /min [facility] Body temperature 2022-11-18 04:10:00 37 Ronna [facility] Oxygen saturation in Arterial blood by Pulse oximetry 2022-11-18 04:10:00 97 /min [facility] Respiratory rate 2022-11-18 02:22:00 16 /min [facility] Body weight 2022-11-17 23:13:00 63.504 kg [facility] Systolic blood pressure 2022-10-11 16:12:00 133 mm[Hg] [facility] Diastolic blood pressure 2022-10-11 16:12:00 95 mm[Hg] [facility] Heart rate 2022-10-11 16:12:00 84 /min [facility] Respiratory rate 2022-10-11 16:12:00 16 /min [facility] Oxygen saturation in Arterial blood by Pulse oximetry 2022-10-11 16:12:00 98 /min [facility] Body temperature 2022-10-11 15:05:00 37 Ronna [facility] Body height 2022-10-11 15:05:00 175.3 cm [facility] Body weight 2022-10-11 15:05:00 63.504 kg [facility] BMI 2022-10-11 15:05:00 20.67 kg/m2 [facility] Body mass index (BMI) [Percentile] Per age and sex 2022-10-11 15:05:00 40.96 % [facility] Systolic blood pressure 2022-07-27 07:00:00 110 mm[Hg] [facility] Diastolic blood pressure 2022-07-27 07:00:00 68 mm[Hg] [facility] Heart rate 2022-07-27 07:00:00 60 /min [facility] Body temperature 2022-07-27 07:00:00 37.28 Ronna [facility] Respiratory rate 2022-07-27 07:00:00 17 /min [facility] Oxygen saturation in Arterial blood by Pulse oximetry 2022-07-27 07:00:00 96 /min [facility] Body height 2022-07-27 04:37:00 175.3 cm [facility] Body weight 2022-07-27 04:37:00 56.337 kg [facility] BMI 2022-07-27 04:37:00 18.34 kg/m2 [facility] Body mass index (BMI) [Percentile] Per age and sex 2022-07-27 04:37:00 11.37 % [facility] Procedures Procedure Date / Time Performed Performing Clinician Source POCT TEST 2024-09-08 13:20:00 Oumou Boo [facility] URINALYSIS 2024-09-08 13:15:00 January Boo [facility] URINE DRUG (IMMUNOASSAY) - COMPREHENSIVE DRUG SCREEN W/O REFLEX 2024-09-08 13:15:00 January Boo [facility] FENTANYL (IMMUNOASSAY) 2024-09-08 13:15:00 Philip Boo [facility] HB ECG ROUTINE & RHYTHM STRIP 2023-03-10 15:10:56 Akash Bernal [facility] URINALYSIS 2023-03-10 14:53:00 Akash Bernal [facility] POCT TEST 2023-03-10 14:53:00 Akash Bernal [facility] URINE DRUG (IMMUNOASSAY) - COMPREHENSIVE DRUG SCREEN W/O REFLEX 2023-03-10 14:53:00 Akash Bernal [facility] AC ABG + LACTIC ACID 2023-03-10 14:36:00 Selina Bernal [facility] CREATINE KINASE 2023-03-10 14:25:00 [facility] LIP[facility] 2023-03-10 14:25:00 Akash Bernal [facility] COMP. METABOLIC PANEL ([id number]) 2023-03-10 14:25:00 Akash Bernal [facility] CBC WITH DIFF 2023-03-10 14:25:00 Akash Bernal [facility] CONSENT/REFUSAL FOR DIAGNOSIS AND TREATMENT 2023-03-10 13:19:54 Doctor Unassigned, [place] [facility] US OVARY TORSION 2023-02-10 22:25:00 Luis Carlos Posey Un [facility] CT ABDOMEN PELVIS W CONTRAST 2023-02-10 20:53:59 Luis Carlos Posey [facility] URINE DRUG (IMMUNOASSAY) - COMPREHENSIVE DRUG SCREEN 2023-02-10 20:28:00 Luis Carlos Posey [facility] URINALYSIS 2023-02-10 20:28:00 Luis Carlos Posey [facility] TEST, SERUM 2023-02-10 19:51:00 Luis Carlos Posey [facility] COMP. METABOLIC PANEL ([id number]) 2023-02-10 18:57:00 Luis Carlos Posey [facility] CBC WITH DIFF 2023-02-10 18:57:00 Luis Carlos Posey [facility] CONSENT/REFUSAL FOR DIAGNOSIS AND TREATMENT 2023-02-10 17:57:28 Doctor Unassigned, [place] [facility] US OVARY TORSION 2023-01-15 08:49:25 Ishmael Domínguez U [facility] COMP. METABOLIC PANEL ([id number]) 2023-01-15 05:37:00 Ishmael Domínguez [facility] CBC WITH DIFF 2023-01-15 05:37:00 Ishmael Domínguez [facility] URINALYSIS 2023-01-15 05:37:00 Ishmael Domínguez [facility] CONSENT/REFUSAL FOR DIAGNOSIS AND TREATMENT 2023-01-15 04:02:38 Doctor Unassigned, [place] [facility] CONSENT/REFUSAL FOR DIAGNOSIS AND TREATMENT 2023-01-14 17:36:09 Doctor Unassigned, [place] [facility] CONSENT/REFUSAL FOR DIAGNOSIS AND TREATMENT 2023-01-14 16:41:53 Doctor Unassigned, [place] [facility] CT ABDOMEN PELVIS W CONTRAST 2023-01-13 21:22:33 Saad Watts [facility] URINALYSIS 2023-01-13 20:48:00 Saad Watts [facility] POCT TEST 2023-01-13 20:47:00 Saad Watts [facility] LIPASE 2023-01-13 20:39:00 Saad Watts [facility] COMP. METABOLIC PANEL ([id number]) 2023-01-13 20:39:00 Saad Watts [facility] CBC WITH DIFF 2023-01-13 20:39:00 Saad Watts [facility] CONSENT/REFUSAL FOR DIAGNOSIS AND TREATMENT 2023-01-13 19:21:26 Doctor Unassigned, [place] [facility] CT ABDOMEN PELVIS W CONTRAST 2022-11-18 03:17:05 Ishmael Domínguez [facility] XR CHEST 1 VW 2022-11-18 03:08:[address] [facility] POCT TEST 2022-11-18 01:00:00 Ishmael Domínguez e [facility] MAGNESIUM 2022-11-18 00:47:00 Ishmael Domínguez [facility] COMP. METABOLIC PANEL ([id number]) 2022-11-18 00:47:00 Ishmael Domínguez [facility] CBC WITH DIFF 2022-11-18 00:47:[address] [facility] URINALYSIS 2022-11-18 00:47:00 Ishmael Domínguez [facility] LIPASE 2022-11-18 00:47:00 Ishmael Domínguez [facility] CONSENT/REFUSAL FOR DIAGNOSIS AND TREATMENT 2022-11-17 23:10:12 Doctor Unassigned, [place] [facility] CBC WITH DIFF 2022-10-11 15:44:[address] [facility] POCT TEST 2022-10-11 15:13:00 Ishmael Domínguez [facility] URINALYSIS 2022-10-11 15:12:00 Ishmael Domínguez [facility] CONSENT/REFUSAL FOR DIAGNOSIS AND TREATMENT 2022-10-11 14:57:40 Doctor Unassigned, [place] [facility] POCT TEST 2022-07-27 06:05:00 Esme Amaya ra [facility] URINALYSIS 2022-07-27 06:03:00 [facility] 2022-07-27 04:23:13 Doctor Unassigned, [place] [facility] NOTICE OF PRIVACY PRACTICES 2022-07-27 04:22:45 Doctor Unassigned, [place] [facility] Encounters Start Date/Time End Date/Time Encounter Type Admission Type Attending [facility] Care Facility Care Department Encounter ID Source 2024-09-08 07:56:00 2024-09-08 09:28:00 Emergency X JANUARY BOO DONNELL [facility] ERT [id number] [facility] 2024-09-08 07:56:00 2024-09-08 09:28:00 Emergency January Boo [facility] [id number] [facility] 2024-09-06 08:00:00 2024-09-06 09:27:00 Emergency X MARYLOU AMAYA SANDRA [facility] ERT [id number] [facility] 2024-09-06 08:00:00 2024-09-06 09:27:00 Emergency Marylou Amaya [facility] [id number] [facility] 2024-08-06 12:50:00 2024-08-06 14:44:00 Emergency X MARCOS DODD ERICCA [facility] ERT [id number] [facility] 2023-03-10 08:26:00 2023-03-10 12:18:00 Emergency X AKASH BERNAL [facility] ERT [id number] [facility] 2023-03-10 08:26:00 2023-03-10 12:18:00 Emergency Akash Bernal [facility] [id number] [facility] 2023-02-10 13:02:00 2023-02-10 18:18:00 Emergency Luis Carlos Posey [facility] [id number] [facility] 2023-02-10 13:02:00 2023-02-10 18:18:00 Emergency X LUIS CARLOS POSEY [facility] ERT [id number] [facility] 2023-01-14 23:18:00 2023-01-15 04:40:00 Emergency X JOY ANDREWS [facility] ERT [id number] [facility] 2023-01-14 23:18:00 2023-01-15 04:40:00 Emergency SangIshmael LorenaJoy miles [facility] 1.2.840.114 350.1.13.10 4.2.7.2.686 [id number] 084 [id number] [facility] 2023-01-14 11:48:00 2023-01-14 13:39:00 Emergency X SAAD WATTS [facility] ERT [id number] [facility] 2023-01-14 11:48:00 2023-01-14 13:39:00 Emergency Saad Watts [facility] 1.2.840.114 350.1.13.10 4.2.7.2.686 [id number] [id number] [facility] 2023-01-13 14:37:00 2023-01-13 19:09:00 Emergency X SAAD WATTS [facility] ERT [id number] [facility] 2023-01-13 14:37:00 2023-01-13 19:09:00 Emergency Saad Watts [facility] 1.2.840.114 350.1.13.10 4.2.7.2.686 [id number] [id number] [facility] 2022-11-17 18:15:00 2022-11-17 23:22:00 Emergency X Ishmael DOMÍNGUEZ [facility] ERT [id number] [facility] 2022-11-17 18:15:00 2022-11-17 23:22:00 Emergency SangIshmael [facility] 1.2.840.114 350.1.13.10 4.2.7.2.686 [id number] [id number] [facility] 2022-10-11 10:09:00 2022-10-11 11:41:00 Emergency X SANGIshmael [facility] ERT [id number] [facility] 2022-10-11 10:09:00 2022-10-11 11:41:00 Emergency Ishmael Domínguez [facility] 1.2.840.114 350.1.13.10 4.2.7.2.686 [id number] 084 [id number] [facility] 2022-07-26 22:43:00 2022-07-27 01:14:00 Emergency X MARYLOU AMAYA [facility] ERT [id number] [facility] 2022-07-26 22:43:00 2022-07-27 01:14:00 Emergency Marylou Amaya [facility] 1.2.840.114 350.1.13.10 4.2.7.2.686 [id number] 084 [id number] [facility] Results Test Description Test Time Test Comments Results Result Co mments Source [facility] ([id number])2023-03-10 14:57:13* Test Item Value Reference Range Interpretation Comme nts NA (test code = 0823162297) 141 mmol/L 135-145 K (test code = 8709710333) 3.5 mmol/L 3.5-5.0 CL (test code = 0837457031) 105 mmol/L 98-108 CO2 TOTAL (test code = 2776269572) 19 mmol/L 23-31 L AGAP (test code = 9998729138) 17 2-16 H BUN (test code = 8727858074) 10 mg/dL 7-23 GLUCOSE (test code = 0821459705) 160 mg/dL 70-110 H CREATININE (test code = 5207151868) 0.63 mg/dL 0.50-1.04 TOTAL BILI (test code = 6813540144) 0.5 mg/dL 0.1-1.1 CALCIUM (test code = 5367081000) 10.0 mg/dL 8.6-10.6 T PROTEIN (test code = 0024152755) 7.9 g/dL 6.3-8.2 ALBUMIN (test code = 2538286113) 4.7 g/dL 3.5-5.0 ALK PHOS (test code = 0769616673) 79 U/L 34-122 ALTv (test code = 1742-6) 19 U/L 5-35 AST(SGOT) (test code = 4600745460) 23 U/L 13-40 eGFR (test code = 0828227350) 123.1 mL/min/1.73m2 BREANNA (test code = BREANNA) [...] imaging tests). Lab Interpretation (test code = 68734-6) [facility]normal [facility] 14:56:53* Test Item Value Reference Range Interpretation Comme nts LIPASE (test code = 2449102011) 48 U/L 0-220 Lab Interpretation (test cod e = 24409-6) Normal [facility] [id number] 14:56:53* Test Item Value Reference Range Interpretation Comme nts CK (test code = 7865144797) 58 U/L 33-194 Lab Interpretation (test cod e = 74628-7) Normal [facility] [id number] 14:53:00* Test Item Value Reference Range Interpretation Comme nts POCT PREG (test code = 1605) Negative On board controls acceptable with C Line (test code = 3574) Yes POCT PREG LOT # (test code = 3575) [id number] POCT PREG TEST DATE ( test code = 3576) 05/29/2024 Lab Interpretation (test cod e = 42645-1) Normal [facility] WITH [id number] 14:43:54* Test Item Value Reference Range Interpretation [...] 34.2 g/dL 32.0-36.0 RDW-SD (test code = 87793-7) 41.4 fL 38.5-49.0 RDW-CV (test code = 788-0) 11.8 % 11.5-14.0 PLT (test code = 777-3) 304 See_Comment [Automated message] The system which generated this result transmitted reference range: 135 - 361 10*3/?L. The reference range was not used to interpret this result as normal/abnormal. MPV (test code = 12682-6) 10.9 fL 9.4-13.3 NRBC/100 WBC (test code = 9169095584) 0.0 See_Comment [Automated message] The system which generated this result transmitted reference range: 0.0 - 10.0 /100 WBCs. The reference range was not used to interpret this result as normal/abnormal. NRBC x10^3 (test code = 9957755580) See_Comment [Automated message] The system which generated this result transmitted reference range: 10*3/?L. The reference range was not used to interpret this result as normal/abnormal. GRAN MAT (NEUT) % (test code = 770-8) 90.8 % IMM GRAN % (test code = 5613209723) 0.30 % LYMPH % (test code = 736-9) 5.3 % MONO % (test code = 5905-5) 3.3 % EOS % (test code = 713-8) 0.0 % BASO % (test code = 706-2) 0.3 % GRAN MAT x10^3(ANC) (test code = 6553884873) 13.38 10*3/uL 1.50-10.30 H IMM GRAN x10^3 (test code = 8348166283) 0.05 10*3/uL 0.00-0.06 LYMPH x10^3 (test code = 731-0) 0.78 10*3/uL 0.70-7.40 MONO x10^3 (test code = 742-7) 0.49 10*3/uL 0.00-0.50 EOS x10^3 (test code = 711-2) 0.00-0.40 BASO x10^3 (test code = 704-7) 0.04 10*3/uL 0.00-0.10 Lab Interpretation (test code = 38543-6) Abnormal [facility], [id number] 20:11:53* Test Item Value Reference Range Interpretation Comme nts PREG SERUM (test code = 5898800320) Negative BREANNA (test code = BREANNA) Less than 10 IU/L. ?If low titer or ectopic is suspected, resubmit specimen in 48-72 hours. [facility] MET[facility]OLIC PANEL ([id number])2023-02-10 19:31:01* Test Item Value Reference Range Interpretation Comme nts NA (test code = 2214373050) 140 mmol/L 135-145 K (test code = 9360421621) 4.0 mmol/L 3.5-5.0 CL (test code = 6973969598) 111 mmol/L 98-108 H CO2 TOTAL (test code = 0702835275) 17 mmol/L 23-31 L AGAP (test code = 5934373930) 12 2-16 BUN (test code = 6561580935) 8 mg/dL 7-23 GLUCOSE (test code = 8989476483) 136 mg/dL 70-110 H CREATININE (test code = 7253578748) 0.70 mg/dL 0.50-1.04 TOTAL BILI (test code = 0521942632) 0.3 mg/dL 0.1-1.1 CALCIUM (test code = 3553736748) 9.8 mg/dL 8.6-10.6 T PROTEIN (test code = 7663194334) 8.0 g/dL 6.3-8.2 ALBUMIN (test code = 6086191677) 4.7 g/dL 3.5-5.0 ALK PHOS (test code = 8823278566) 92 U/L 34-122 ALTv (test code = 1742-6) 17 U/L 5-35 AST(SGOT) (test code = 3110147035) 26 U/L 13-40 eGFR (test code = 8261203112) 109.0 mL/min/1.73m2 BREANNA (test code = BREANNA) [...] imaging tests). Lab Interpretation (test code = 70165-9) Abnormal [facility] WITH [id number] 19:20:02* Test Item Value Reference Range Interpretation [...] 34.4 g/dL 32.0-36.0 RDW-SD (test code = 82126-3) 42.3 fL 38.5-49.0 RDW-CV (test code = 788-0) 12.0 % 11.5-14.0 PLT (test code = 777-3) 315 See_Comment [Automated message] The system which generated this result transmitted reference range: 135 - 361 10*3/?L. The reference range was not used to interpret this result as normal/abnormal. MPV (test code = 37088-3) 10.3 fL 9.4-13.3 NRBC/100 WBC (test code = 4968137384) 0.0 See_Comment [Automated message] The system which generated this result transmitted reference range: 0.0 - 10.0 /100 WBCs. The reference range was not used to interpret this result as normal/abnormal. NRBC x10^3 (test code = 0854058538) See_Comment [Automated message] The system which generated this result transmitted reference range: 10*3/?L. The reference range was not used to interpret this result as normal/abnormal. GRAN MAT (NEUT) % (test code = 770-8) 78.0 % IMM GRAN % (test code = 1424674024) 0.40 % LYMPH % (test code = 736-9) 14.7 % MONO % (test code = 5905-5) 6.4 % EOS % (test code = 713-8) 0.2 % BASO % (test code = 706-2) 0.3 % GRAN MAT x10^3(ANC) (test code = 5941998726) 10.50 10*3/uL 1.50-10.30 H IMM GRAN x10^3 (test code = 9557169927) 0.06 10*3/uL 0.00-0.06 LYMPH x10^3 (test code = 731-0) 1.98 10*3/uL 0.70-7.40 MONO x10^3 (test code = 742-7) 0.86 10*3/uL 0.00-0.50 H EOS x10^3 (test code = 711-2) 0.03 10*3/uL 0.00-0.40 BASO x10^3 (test code = 704-7) 0.04 10*3/uL 0.00-0.10 Lab Interpretation (test code = 04300-2) Abnormal [facility]. METABOLIC PANEL (02835)2023-01-15 06:02:07* Test Item Value Reference Range Interpretation Comme nts NA (test code = 8522368201) 143 mmol/L 135-145 K (test code = 7107609003) 3.7 mmol/L 3.5-5.0 CL (test code = 7110632309) 104 mmol/L 98-108 CO2 TOTAL (test code = 9961089018) 29 mmol/L 23-31 AGAP (test code = 2577766562) 10 2-16 BUN (test code = 6499532649) 19 mg/dL 7-23 GLUCOSE (test code = 4210601789) 104 mg/dL 70-110 CREATININE (test code = 0834560493) 0.80 mg/dL 0.50-1.04 TOTAL BILI (test code = 4931574440) 0.4 mg/dL 0.1-1.1 CALCIUM (test code = 6137785898) 9.6 mg/dL 8.6-10.6 T PROTEIN (test code = 2980015720) 7.7 g/dL 6.3-8.2 ALBUMIN (test code = 6511315538) 4.6 g/dL 3.5-5.0 ALK PHOS (test code = 4686931507) 59 U/L 34-122 ALTv (test code = 1742-6) 17 U/L 5-35 AST(SGOT) (test code = 9389202528) 24 U/L 13-40 eGFR (test code = 3587796060) 93.4 mL/min/1.73m2 BREANNA (test code = BREANNA) [...] or urine or abnormalities in imaging tests). [facility] WITH [id number] 05:49:10* Test Item Value Reference Range Interpretation Comme nts WBC (test code = 6690-2) 10.32 See_Comment [Automated [employer]] The system which generated this result transmitted reference range: 4.50 - 13.50 10*3/?L. The reference range was not used to interpret this result as normal/abnormal. RBC (test code = 789-8) 4.03 See_Comment L [Automated [employer]] The system which generated this result transmitted [...] 34.0 g/dL 32.0-36.0 RDW-SD (test code = 45383-5) 43.1 fL 38.5-49.0 RDW-CV (test code = 788-0) 12.2 % 11.5-14.0 PLT (test code = 777-3) 269 See_Comment [Automated [employer]] The system which generated this result transmitted reference range: 135 - 361 10*3/?L. The reference range was not used to interpret this result as normal/abnormal. MPV (test code = 30670-3) 10.2 fL 9.4-13.3 NRBC/100 WBC (test code = 4874211143) 0.0 See_Comment [Automated me ssage] The system which generated this result transmitted reference range: 0.0 - 10.0 /100 WBCs. The reference range was not used to interpret this result as normal/abnormal. NRBC x10^3 (test code = 3578631254) See_Comment [Automated messa ge] The system which generated this result transmitted reference range: 10*3/?L. The reference range was not used to interpret this result as normal/abnormal. GRAN MAT (NEUT) % (test code = 770-8) 76.5 % IMM GRAN % (test code = 1846369270) 0.30 % LYMPH % (test code = 736-9) 14.8 % MONO % (test code = 5905-5) 8.2 % EOS % (test code = 713-8) 0.0 % BASO % (test code = 706-2) 0.2 % GRAN MAT x10^3(ANC) (test code = 7477412520) 7.89 10*3/uL 1.50-10.30 IMM GRAN x10^3 (test code = 0187097548) 0.03 10*3/uL 0.00-0.06 LYMPH x10^3 (test code = 731-0) 1.53 10*3/uL 0.70-7.40 MONO x10^3 (test code = 742-7) 0.85 10*3/uL 0.00-0.50 H EOS x10^3 (test code = 711-2) 0.00-0.40 BASO x10^3 (test code = 704-7) 0.00-0.10 Lab Interpretation (test code = 21678-3) Abnormal [facility] (07889)2023-01-13 21:14:31* Test Item Value Reference Range Interpretation Comme nts NA (test code = 6575672147) 142 mmol/L 135-145 K (test code = 8509235888) 3.3 mmol/L 3.5-5.0 L CL (test code = 4554474567) 105 mmol/L 98-108 CO2 TOTAL (test code = 7680890707) 18 mmol/L 23-31 L AGAP (test code = 2969194045) 19 2-16 H BUN (test code = 3096346777) 14 mg/dL 7-23 GLUCOSE (test code = 9371217091) 161 mg/dL 70-110 H CREATININE (test code = 4416752933) 0.72 mg/dL 0.50-1.04 TOTAL BILI (test code = 9105188306) 0.6 mg/dL 0.1-1.1 CALCIUM (test code = 4609052500) 10.4 mg/dL 8.6-10.6 T PROTEIN (test code = 7102253497) 8.4 g/dL 6.3-8.2 H ALBUMIN (test code = 5663269346) 4.9 g/dL 3.5-5.0 ALK PHOS (test code = 0143676984) 72 U/L 34-122 ALTv (test code = 1742-6) 33 U/L 5-35 AST(SGOT) (test code = 1053812843) 26 U/L 13-40 eGFR (test code = 7009632564) 105.5 mL/min/1.73m2 BREANNA (test code = BREANNA) [...] imaging tests). Lab Interpretation (test code = 91312-3) Abnormal [facility] 21:06:28* Test Item Value Reference Range Interpretation Comme nts LIPASE (test code = 9011351055) 28 U/L 0-220 Lab Interpretation (test cod e = 39461-0) Normal [facility] WITH [id number] 20:55:10* Test Item Value Reference Range Interpretation [...] 35.5 g/dL 32.0-36.0 RDW-SD (test code = 42119-3) 40.0 fL 38.5-49.0 RDW-CV (test code = 788-0) 12.0 % 11.5-14.0 PLT (test code = 777-3) 308 See_Comment [Automated message] The system which generated this result transmitted reference range: 135 - 361 10*3/?L. The reference range was not used to interpret this result as normal/abnormal. MPV (test code = 18963-7) 10.8 fL 9.4-13.3 NRBC/100 WBC (test code = 2122473558) 0.0 See_Comment [Automated message] The system which generated this result transmitted reference range: 0.0 - 10.0 /100 WBCs. The reference range was not used to interpret this result as normal/abnormal. NRBC x10^3 (test code = 3690733031) See_Comment [Automated message] The system which generated this result transmitted reference range: 10*3/?L. The reference range was not used to interpret this result as normal/abnormal. GRAN MAT (NEUT) % (test code = 770-8) 88.1 % IMM GRAN % (test code = 4885494990) 0.30 % LYMPH % (test code = 736-9) 6.7 % MONO % (test code = 5905-5) 4.7 % EOS % (test code = 713-8) 0.0 % BASO % (test code = 706-2) 0.2 % GRAN MAT x10^3(ANC) (test code = 5432795997) 10.65 10*3/uL 1.50-10.30 H IMM GRAN x10^3 (test code = 3222950063) 0.04 10*3/uL 0.00-0.06 LYMPH x10^3 (test code = 731-0) 0.81 10*3/uL 0.70-7.40 MONO x10^3 (test code = 742-7) 0.57 10*3/uL 0.00-0.50 H EOS x10^3 (test code = 711-2) 0.00-0.40 BASO x10^3 (test code = 704-7) 0.03 10*3/uL 0.00-0.10 Lab Interpretation (test code = 11091-7) Abnormal [facility] [id number] 20:47:00* Test Item Value Reference Range Interpretation Comme nts POCT PREG (test code = 1605) Negative On board controls acceptable with C Line (test code = 3574) Yes POCT PREG LOT # (test code = 3575) [id number] POCT PREG TEST DATE ( test code = 3576) 2024-05-29 Lab Interpretation (test cod e = 95427-4) Normal [facility] WITH [id number] 02:16:05* Test Item Value Reference Range Interpretation [...] 34.3 g/dL 32.0-36.0 RDW-SD (test code = 49249-8) 42.6 fL 38.5-49.0 RDW-CV (test code = 788-0) 12.4 % 11.5-14.0 PLT (test code = 777-3) 339 See_Comment [Automated message] The system which generated this result transmitted reference range: 135 - 361 10*3/?L. The reference range was not used to interpret this result as normal/abnormal. MPV (test code = 86107-5) 10.8 fL 9.4-13.3 NRBC/100 WBC (test code = 9083314689) 0.0 See_Comment [Automated message] The system which generated this result transmitted reference range: 0.0 - 10.0 /100 WBCs. The reference range was not used to interpret this result as normal/abnormal. NRBC x10^3 (test code = 7309233650) See_Comment [Automated message] The system which generated this result transmitted reference range: 10*3/?L. The reference range was not used to interpret this result as normal/abnormal. GRAN MAT (NEUT) % (test code = 770-8) 88.1 % IMM GRAN % (test code = 3038382109) 0.50 % LYMPH % (test code = 736-9) 5.7 % MONO % (test code = 5905-5) 5.2 % EOS % (test code = 713-8) 0.2 % BASO % (test code = 706-2) 0.3 % GRAN MAT x10^3(ANC) (test code = 3011095169) 15.48 10*3/uL 1.50-10.30 H IMM GRAN x10^3 (test code = 9303674844) 0.08 10*3/uL 0.00-0.06 H LYMPH x10^3 (test code = 731-0) 1.01 10*3/uL 0.70-7.40 MONO x10^3 (test code = 742-7) 0.92 10*3/uL 0.00-0.50 H EOS x10^3 (test code = 711-2) 0.04 10*3/uL 0.00-0.40 BASO x10^3 (test code = 704-7) 0.06 10*3/uL 0.00-0.10 Lab Interpretation (test code = 38649-1) [facility]normal [facility] 01:53:23* Test Item Value Reference Range Interpretation Comme nts MAGNESIUM (test code = 4810189650) 1.8 mg/dL 1.7-2.4 Lab Interpretation (test cod e = 07325-0) Normal [facility]OL[facility]EL (75779)2022-11-18 01:53:02* Test Item Value Reference Range Interpretation Comme nts NA (test code = 8985135465) 144 mmol/L 135-145 K (test code = 0309680211) 3.6 mmol/L 3.5-5.0 CL (test code = 4271786906) 106 mmol/L 98-108 CO2 TOTAL (test code = 5586032874) 22 mmol/L 23-31 L AGAP (test code = 1775971817) 16 2-16 BUN (test code = 4169713512) 9 mg/dL 7-23 GLUCOSE (test code = 2647392889) 146 mg/dL 70-110 H CREATININE (test code = 5201038456) 0.72 mg/dL 0.50-1.04 TOTAL BILI (test code = 4363020349) 0.7 mg/dL 0.1-1.1 CALCIUM (test code = 5254055884) 10.0 mg/dL 8.6-10.6 T PROTEIN (test code = 1063286583) 7.9 g/dL 6.3-8.2 ALBUMIN (test code = 8746856681) 4.7 g/dL 3.5-5.0 ALK PHOS (test code = 5780555036) 80 U/L 34-122 ALTv (test code = 1742-6) 18 U/L 5-35 AST(SGOT) (test code = 7192763453) 22 U/L 13-40 eGFR (test code = 9603051085) 105.5 mL/min/1.73m2 BREANNA (test code = BREANNA) [...] imaging tests). Lab Interpretation (test code = 18200-5) [facility]normal [facility] 01:52:42* Test Item Value Reference Range Interpretation Comme nts LIPASE (test code = 4481102014) 36 U/L 0-220 Lab Interpretation (test cod e = 58911-4) Normal [facility] [id number] 01:00:00* Test Item Value Reference Range Interpretation Comme nts POCT PREG (test code = 1605) Negative On board controls acceptable with C Line (test code = 3574) Yes Lab Interpretation (test cod e = 29628-4) Normal [facility] WITH [id number] 16:20:58* Test Item Value Reference Range Interpretation Comme nts WBC (test code = 6690-2) 9.56 See_Comment [Automated [employer]] The system which generated this result transmitted reference range: 4.50 - 13.50 10*3/?L. The reference range was not used to interpret this result as normal/abnormal. RBC (test code = 789-8) 4.36 See_Comment [Automated [employer]] The system which generated this result [...] 34.0 g/dL 32.0-36.0 RDW-SD (test code = 83161-9) 42.1 fL 38.5-49.0 RDW-CV (test code = 788-0) 12.1 % 11.5-14.0 PLT (test code = 777-3) 273 See_Comment [Automated [employer]] The system which generated this result transmitted reference range: 135 - 361 10*3/?L. The reference range was not used to interpret this result as normal/abnormal. MPV (test code = 02872-8) 10.6 fL 9.4-13.3 NRBC/100 WBC (test code = 1935213414) 0.0 See_Comment [Automated me ssage] The system which generated this result transmitted reference range: 0.0 - 10.0 /100 WBCs. The reference range was not used to interpret this result as normal/abnormal. NRBC x10^3 (test code = 4898775437) See_Comment [Automated messa ge] The system which generated this result transmitted reference range: 10*3/?L. The reference range was not used to interpret this result as normal/abnormal. GRAN MAT (NEUT) % (test code = 770-8) 84.4 % IMM GRAN % (test code = 5611751048) 0.40 % LYMPH % (test code = 736-9) 11.7 % MONO % (test code = 5905-5) 3.2 % EOS % (test code = 713-8) 0.1 % BASO % (test code = 706-2) 0.2 % GRAN MAT x10^3(ANC) (test code = 3933290874) 8.06 10*3/uL 1.50-10.30 IMM GRAN x10^3 (test code = 9176899775) 0.04 10*3/uL 0.00-0.06 LYMPH x10^3 (test code = 731-0) 1.12 10*3/uL 0.70-7.40 MONO x10^3 (test code = 742-7) 0.31 10*3/uL 0.00-0.50 EOS x10^3 (test code = 711-2) 0.00-0.40 BASO x10^3 (test code = 704-7) 0.00-0.10 Lab Interpretation (test code = 03733-4) [facility]normal [facility] [id number] 15:13:00* Test Item Value Reference Range Interpretation Comme nts POCT PREG (test code = 1605) Negative On board controls acceptable with C Line (test code = 3574) Yes POCT PREG LOT # (test code = 3575) HCG [id number] POCT PREG TEST DATE (test code = 3576) 01/02/2024 Lab Interpretation (test cod e = 47889-9) [facility] [id number] 06:05:00* Test Item Value Reference Range Interpretation Comme nts POCT PREG (test code = 1605) Negative On board controls acceptable with C Line (test code = 3574) Positive POCT PREG LOT # (test code = 3575) [id number] POCT PREG TEST DATE ( test code = 3576) 08/25/2023 Lab Interpretation (test cod e = 15600-2) Normal [facility] Notes Date/Time Note Provider Source 2024-09-08 09:26:56 [...] with steady gait, in no apparent distress. [facility] 2024-09-08 07:53:01 Pt arrived ambulatory with mother for abdominal pain since this morning. Pt started her period this morning. Denies smoking weed recently [employer] Tawanna Vicente RN [facility] 2024-09-06 09:09:36 Pt still not in WR. Pt left before disposition [employer] Tawanna Vicente RN [facility] 2024-09-06 08:37:58 Physician to WR with PO fluids to PO challenge and patient not found in WR. [facility] 2024-09-06 07:58:06 Patient states: "This morning I started having vomiting, chills and diarrhea" Linda Alcaraz RN [facility] 2024-09-06 07:51:00 [facility] Emergency Department Note Patient Name: Harlan Ayala Date of : 2005 19 year old female Treatment Room: PR1/PR1 Primary Care Physician: Kristopher Miramontes Patient Escorted [...] signed by: Marylou Amaya DO 09/06/24 0910 Counts include 234 beds at the [facility] 2023-02-10 18:15:53 Formatting of this n ote might be different from the original. Pt wanting to leave. Advised that MD was typing up discharge if she wanted to wait for paperwork. Pt said she was not and would be going [facility] Pt left ER ambulatory, no signs of distress. [facility] Linda Alcaraz RN [facility] 2023-02-10 15:05:54 Formatting of this n ote might be different from the original. Pt c/o chest pain. Dr. Posey notified. EKG completed and turned into him. Counts include 234 beds at the [facility] 2023-02-10 13:01:51 Formatting of this n ote might be different from the original. Harlan Ayala is a 17 year old female c/o n/v x 3 and "fishy" taste in mouth, denies other symptoms Rocio Rowe RN [facility] - [facility] 2023-02-10 12:56:00 Formatting of this n ote is different from the original. [facility] Emergency Department Note Demographics Patient Name: Harlan Ayala Date of : 2005 17 year old Treatment Room: [place] [address] Primary Care Physician: Kristopher Miramontes Pre Hospital Care Patient Escorted by: Self [9] Mode of Arrival: Personal means [1] EMS Treatment Prior to ED Arrival: [employer] treatment: None ED Events Date/Time Event User [...] 0.00 - 0.10 10*3/uL COMP. METABOLIC PANEL (76704) - Abnormal NA 140 135 - 145 [...] No evidence of ovarian torsion. RL: [address] [facility]: [id number] End of Report ABDOMEN PELVIS W CONTRAST [...] TORSION CBC WITH DIFF COMP. METABOLIC PANEL (20883) URINALYSIS URINE DRUG (IMMUNOASSAY) - COMPREHENSIVE DRUG [...] file Luis Carlos Posey MD, FACEP, FAAEM Senior Manager [employer] of Emergency and Internal Medicine 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 Awake, alert oriented, resp reg unlabored, skin w/d, pt leaving amb with steady gait, in no apparent distress, Lianet Lora RN [facility] 2023-01-15 01:12:07 Formatting of this n ote might be different from the original. Gave report MONIKA oLra. Juanita Yates RN [facility] 2023-01-14 23:10:59 Formatting of this n [...] smoked marijuana this morning. Tawanna Vicente RN [facility] 2023-01-14 23:02:00 Formatting of this n ote is different from the original. 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 METABOLIC PANEL (53197) NA 143 135 - 145 mmol/L K [...] TORSION CBC WITH DIFF COMP. METABOLIC PANEL (42070) URINALYSIS Orders Placed This Encounter Medications ketorolac [...] or significant free fluid. RL: 460 AFC: 22096 Course as of 01/15/23414Jan 15, 2023 0406 [...] on file 2. Contact information for follow-up [facility] Specialty: Obstetrics & Gynecology [address] [place] [address], [address] [facility] [id number] Instructions: As needed Kristopher Miramontes Specialty: IM-INTERNAL MEDICINE Relationship: PCP - General [place] [id number] Instructions: As needed 3. macrobid for UTI 4. Return to ER if symptoms should worsen or fail to improve within 72 hours. Follow up with primary care provider within 48-72 hours. Take all medications as prescribed. Stay adequately hydrated. Joy Andrews M.D., FACEP Emergency Medicine [facility] 2023-01-14 13:38:14 Formatting of this n [...] noted. Accompanied by mother. Lauren Aguayo RN [facility] 2023-01-14 11:42:27 Formatting of this n ote might be different from the original. Harlan Ayala is a 17 year old female c/o abdominal pain since yesterday, n/v x2, states seen in ER yesterday for same, did not get meds filled from pharmacy Rocio Rowe RN [facility] 2023-01-13 19:08:07 Formatting of this n [...] in no apparent distress. Rocio Jones RN [facility] 2023-01-13 14:43:24 Formatting of this n ote might be different from the original. Patient asking for water, informed patient that since she is vomiting she cannot have water. Dianne Chatterjee RN [facility] 2023-01-13 14:32:19 Formatting of this n ote might be different from the original. Pt arrived via private car with c/o abd pain and vomiting that started last night. States used her inhaler last night. Shania Farah RN [facility]
[2024-10-13] MEDS ORDERED: NA CHLORIDE 0.9% 1,000 ML ONE (22:54)
[2024-10-13] MEDS ORDERED: ONDANSETRON 4 MG/2 ML VIAL ONE (22:54)
[2024-10-13] MEDS ORDERED: KETOROLAC 30 MG/ML INJ ONE (22:54)
[2024-10-13 23:38] LABS: Absolute Monocytes 0.9 K/uL (0.1-1.3); Absolute Neutrophil 10.6 K/uL (1.8-8.0); Basophils % 0.3 % (0-1.3); Lymphocytes % 7.7 % (15.3-44.8); MCH 32.2 pg (27.0-35.0); MCHC 34.1 g/dL (32.0-36.0); MCV 94.3 fL (80-100); MPV 9.1 fL (7.6-11.3); Monocytes % 6.9 % (3.3-12.3); Neutrophils % 85.1 % (41.7-73.7); Platelets 305 thou/uL (152-406); RBC Red Blood Cell Count 4.03 M/uL (3.86-4.86); Red Cell Distribution Width 14.2 % (12.1-15.2)
[2024-10-13 23:50] LABS: ALT/SGPT 17 U/L (13-56); Albumin 4.2 g/dL (3.4-5.0); Albumin/Globulin Ratio 1.2 (1.1-1.8); Alkaline Phosphatase 80 U/L (45-117); Anion Gap 10.1 mEq/L (5.0-15.0); BUN Blood Urea Nitrogen 11 mg/dL (7-18); Bicarbonate 25 mEq/L (21-32); Bilirubin Total 0.5 mg/dL (0.2-1.0); Globulin 3.6 g/dL (2.3-3.5); Glomerular Filtration Rate 76 ml/min (=/>90); Glucose Level 116 mg/dL (74-106); Magnesium 2.1 mg/dL (1.6-2.4); Potassium 3.1 mEq/L (3.5-5.1); Protein, Total 7.8 g/dL (6.4-8.2); Sodium Level 139 mEq/L (136-145); Troponin High Sensitivity 16.4 pg/mL (<58.9)
[2024-10-14 00:02] LABS: AST/SGOT < 10 U/L (15-37); Bilirubin Direct < 0.2 mg/dL (0-0.2); Bilirubin Indirect, Calculated 0.3 mg/dL (0.2-0.8)
[2024-10-14] MEDS ORDERED: POTASSIUM CL SA 10 MEQ TAB PO ONE (00:18)
--- NOTE | 2024-10-14 00:22 | EDPHYS ---
Physician Documentation [facility] Name: Arianna Ayala Age: 19 yrs Sex: Female : 2005 Arrival Date: 10/13/2024 Time: 21:34 Bed 19 Private MD: ED Physician Greg Wong HPI: 10/13 22:28 This 19 yrs old Female presents to ER via Ambulatory with complaints of Chest Pain, kb Numbness Of Arm. 22:28 PT is a 19 year old female who presents for chest pain that started this morning with kb numbness to arms and legs that came on throughout the day. Reports vomiting today as well. States she is unable to tolerate anything by mouth. . 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 - Infectious Disease History:: Denies. - Social history:: Smoking status: Patient reports the use of cigarette tobacco products, smokes 2 packs per day, Patient uses street drugs, marijuana, Patient/guardian denies using alcohol. ROS: 22:30 Constitutional: As per HPI kb Exam: 22:30 Constitutional: This is a well developed, well nourished patient who is awake, alert, kb and in no acute distress. Head/Face: Normocephalic, atraumatic. ENT: Moist Mucous membranes Cardiovascular: Regular rate Respiratory: Respirations even and unlabored. No increased work of breathing. Talking in full sentences Abdomen/GI: Soft, non-tender. No distention Skin: Warm, dry with normal turgor. Normal color. MS/ Extremity: Pulses equal, no cyanosis. Neurovascular intact. Full, normal range of motion. Neuro: Awake and alert, GCS 15, oriented to person, place, time, and situation. 23:00 ECG was reviewed by the Attending Physician. alivia 10/14 20:27 EKG from 225110/13/2024 reviewed by normal sinus rhythm 80 bpm. sp4 Vital Signs: 10/13 21:54 BP 122 / 70; Pulse 99; Resp 18; Temp 97.9; Pulse Ox 99% ; Weight 49.9 kg; Height 5 ft. br2 9 in. ; Pain 7/10; 23:21 BP 119 / 61; Pulse 81; Resp 18; Pulse Ox 100% ; Pain 7/10; rg5 10/14 00:15 BP 115 / 53; Pulse 78; Resp 18; Pulse Ox 98% ; Pain 0/10; rg5 10/13 21:54 Body Mass Index 16.24 (49.90 kg, 175.26 cm) br2 10/13 21:54 Pain Scale: Adult br2 23:21 Pain Scale: Adult rg5 10/14 00:15 Pain Scale: Adult rg5 MDM: 10/13 21:50 Medical Screening Exam initiated kb 10/14 00:18 Differential diagnosis: arrhythmia, acute mi, abnormal electrolytes, stress reaction. kb Data reviewed: vital signs, nurses notes. Historians other than the Patient: Parent: mother. Counseling: I had a detailed discussion with the patient and/or guardian regarding the historical points, exam findings, and any diagnostic results supporting the discharge/admit diagnosis, lab results, radiology results, the need for outpatient follow up, a family practitioner, to return to the emergency department if symptoms worsen or persist or if there are any questions or concerns that arise at home. 10/13 22:31 Order name: Basic Metabolic Panel; Complete Time: 00:03 kb 10/13 22:31 Order name: CBC with Diff; Complete Time: 00:29 kb 10/13 22:31 Order name: LFT's; Complete Time: 00:03 kb 10/13 22:31 Order name: Magnesium; Complete Time: 00:03 kb 10/13 22:31 Order name: Troponin HS; Complete Time: 00:03 kb 10/13 23:54 Order name: Manual Differential; Complete Time: 00:29 EDMS 10/13 22:31 Order name: XRAY Chest (1 view) kb 10/13 22:31 Order name: EKG; Complete Time: 22:32 kb 10/13 22:31 Order name: Cardiac monitoring; Complete Time: 22:57 kb 10/13 22:31 Order name: EKG - Nurse/Tech; Complete Time: 22:57 kb 10/13 22:31 Order name: IV Saline Lock; Complete Time: 23:11 kb 10/13 22:31 Order name: Labs collected and sent; Complete Time: 23:11 kb 10/13 22:31 Order name: O2 Per Protocol; Complete Time: 22:57 kb 10/13 22:31 Order name: O2 Sat Monitoring; Complete Time: 22:57 kb EC/20 23:00 Rate is 80 beats/min. Rhythm is regular. QRS Tillman is Normal. [place] interval is normal at kb 114 msec. QRS interval is normal at 88 msec. QT interval is normal at 426 msec. Administered Medications: 23:11 Drug: NS 0.9% IV 1000 ml IV at 1000 ml once; to be given as a bolus over 60 minutes rg5 Route: IV; Rate: 1000 ml; Site: right antecubital; 10/14 00:15 Follow up: IV Status: Completed infusion; IV Intake: 1000ml rg5 10/13 23:11 Drug: Ondansetron IVP 4 mg IVP once; over 2 minutes Route: IVP; Site: right antecubital;rg5 10/14 00:15 Follow up: Response: No adverse reaction rg5 10/13 23:11 Drug: Ketorolac IVP 15 mg IVP once Route: IVP; Site: right antecubital; rg5 10/14 00:15 Follow up: Response: No adverse reaction; Pain is decreased rg5 00:16 Drug: Potassium Chloride PO 40 mEq PO once Route: PO; rg5 Disposition: 20:14 Co-signature as Attending Physician, Greg Wong MD I agree with the assessment sp4 and plan of care. I reviewed the patient's care provided by the Advanced Practice Provider and agree with the diagnosis and treatment plan. Disposition Summary: 10/14/24 00:22 Discharge Ordered Notes: Location: Home kb Problem: new kb Symptoms: have improved kb Condition: Stable kb Diagnosis - Chest pain, unspecified kb Followup: kb - With: Emergency Department - When: As needed - Reason: Worsening of condition Followup: kb - With: Private Physician - When: 2 - 3 days - Reason: Recheck today's complaints, Continuance of care, Re-evaluation by your physician Discharge Instructions: - Discharge Summary Sheet kb - Nonspecific Chest Pain, Adult, [id number] kb Forms: - Medication Reconciliation Form kb - Antibiotic Education kb - Prescription Opioid Use kb - Patient Portal Instructions kb - Leadership Thank You Letter kb Signatures: Dispatcher [employer] EDShefali Lua, POWER-C POWER-Greg Jenkins MD MD sp4 Joseluis Huertas, RN RN rg5 Tereza Bain, RN RN br2
--- NOTE | 2024-10-14 00:22 | ER ---
Nurse's Notes [facility] Name: Arianna Ayala Age: 19 yrs Sex: Female : 2005 Arrival Date: 10/13/2024 Time: 21:34 Bed 19 Private MD: Diagnosis: Chest pain, unspecified Presentation: 10/13 21:54 Chief complaint: Patient states: CHEST PAIN MID-STERNAL THIS MORNING (NO PAIN AT THIS br2 TIME, BILATERAL ARMS FEEL NUMB. PT STATES WAS CLEANING A HOUSE THAT HAD MOLD.... Coronavirus screen: Client denies travel out of the [place] in the last 14 days. Ebola Screen: Patient denies exposure to infectious person. Initial Sepsis Screen: Does the patient meet any 2 criteria? No. Patient's initial sepsis screen is negative. Does the patient have a suspected source of infection? No. Patient's initial sepsis screen is negative. Risk Assessment: Do you want to hurt yourself or someone else? Patient reports no desire to harm self or others. Onset of symptoms is unknown. 21:54 Method Of Arrival: Ambulatory br2 21:54 Acuity: DAVE 3 br2 Triage Assessment: 21:58 General: Appears in no apparent distress. comfortable, Behavior is calm, cooperative. br2 Pain: Complains of pain in mid-sternal area. 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 - Infectious Disease History:: Denies. - Social history:: Smoking status: Patient reports the use of cigarette tobacco products, smokes 2 packs per day, Patient uses street drugs, marijuana, Patient/guardian denies using alcohol. Screenin:17 [facility] ED Fall Risk Assessment (Adult) History of falling in the last 3 months, rg5 including since admission No falls in past 3 months (0 pts) Confusion or Disorientation No (0 pts) Intoxicated or Sedated No (0 pts) Impaired Gait No (0 pts) Mobility Assist Device Used No (0 pt) Altered Elimination No (0 pt) Score/Fall Risk Level 0 - 2 = Low Risk Oriented to surroundings, Maintained a safe environment, Hourly rounding (assess needs \T\ fall precautionary measures) done. Abuse screen: Denies threats or abuse. Nutritional screening: No deficits noted. Tuberculosis screening: No symptoms or risk factors identified. Assessment: 23:17 General: Appears in no apparent distress. comfortable, Behavior is calm, cooperative, rg5 appropriate for age. Pain: Complains of pain in chest Pain radiates to right arm and left arm Quality of pain is described as aching, tingling, Pain began 4 hours ago. Neuro: Level of Consciousness is awake, alert, obeys commands, Oriented to person, place, time, situation. Cardiovascular: Reports chest pain, Rhythm is sinus rhythm with PACs. Respiratory: Reports cough that is Airway is patent Trachea midline. GI: Abdomen is flat, non-distended. : No signs and/or symptoms were reported regarding the genitourinary system. EENT: No signs and/or symptoms were reported regarding the EENT system. Derm: Skin is intact, Skin is dry, Skin is normal, Skin temperature is warm. Musculoskeletal: Circulation, motion, and sensation intact. Range of motion: intact in all extremities. Vital Signs: 21:54 BP 122 / 70; Pulse 99; Resp 18; Temp 97.9; Pulse Ox 99% ; Weight 49.9 kg; Height 5 ft. br2 9 in. ; Pain 7/10; 23:21 BP 119 / 61; Pulse 81; Resp 18; Pulse Ox 100% ; Pain 7/10; rg5 10/14 00:15 BP 115 / 53; Pulse 78; Resp 18; Pulse Ox 98% ; Pain 0/10; rg5 10/13 21:54 Body Mass Index 16.24 (49.90 kg, 175.26 cm) br2 10/13 21:54 Pain Scale: Adult br2 23:21 Pain Scale: Adult rg5 10/14 00:15 Pain Scale: Adult rg5 ED Course: 10/13 21:35 Patient arrived in ED. gm2 21:49 Shefali Bennett FNP-C is PHCP. kb 21:49 Greg Wong MD is Attending Physician. kb 21:58 Triage completed. br2 21:58 Arm band placed on right wrist. br2 22:43 Joseluis Huertas, MONIKA is Primary Nurse. rg5 23:04 XRAY Chest (1 view) In Process Unspecified. EDMS 23:17 Patient has correct armband on for positive identification. Client placed on continuous rg5 cardiac and pulse oximetry monitoring. NIBP monitoring applied. caramel candy maker on. Pulse ox on. NIBP on. Door closed. Noise minimized. Warm blanket given. 23:17 No provider procedures requiring assistance completed. Inserted saline lock: 20 gauge rg5 in right antecubital area, using aseptic technique. Blood collected. Flushed with 10 mL NS. Patient maintains SpO2 saturation greater than 95% on room air. 10/14 00:36 IV discontinued, bleeding controlled, No redness/swelling at site. Pressure dressing rg5 applied. 00:37 Provided Education on: post er care. rg5 Administered Medications: 10/13 23:11 Drug: NS 0.9% IV 1000 ml IV at 1000 ml once; to be given as a bolus over 60 minutes rg5 Route: IV; Rate: 1000 ml; Site: right antecubital; 10/14 00:15 Follow up: IV Status: Completed infusion; IV Intake: 1000ml rg5 10/13 23:11 Drug: Ondansetron IVP 4 mg IVP once; over 2 minutes Route: IVP; Site: right antecubital;rg5 10/14 00:15 Follow up: Response: No adverse reaction rg5 10/13 23:11 Drug: Ketorolac IVP 15 mg IVP once Route: IVP; Site: right antecubital; rg5 10/14 00:15 Follow up: Response: No adverse reaction; Pain is decreased rg5 00:16 Drug: Potassium Chloride PO 40 mEq PO once Route: PO; rg5 Medication: 10/13 23:17 VIS not applicable for this client. rg5 Intake: 10/14 00:15 IV: 1000ml; Total: 1000ml. rg5 Outcome: 00:22 Discharge ordered by . alivia 00:36 Discharged to home ambulatory, rg5 00:36 Condition: stable 00:36 Discharge instructions given to patient, 00:37 Patient left the ED. rg5 Signatures: Dispatcher [employer] EDMS Shefali Bennett, CITLALYC DIRECTOR AUTO-Destini Auguste gm2 Joseluis Huertas, RN RN rg5 Tereza Bain RN RN br2
[2024-10-14 00:28] LABS: Band Neutrophils 6 % (0-1); Blood Morphology Comment NOT SEEN (NOT SEEN); Differential Total Cells Count 100; Lymphocytes 3 % (15-42); Monocytes 7 % (0-10); Platelet Estimate ADEQ; Segmented Neutrophils 84 % (40-80)
[2024-10-14 00:52] VITALS: TEMP 97.9
[2024-10-14 00:56] VITALS: BP 115/53; O2SAT 98
--- NOTE | 2024-10-14 06:12 | RAD REPORT ---
EXAM: XR Chest 1 View AP HISTORY: Chest pain COMPARISON: None TECHNIQUE: Chest 1 View AP FINDINGS: Trachea midline. Heart size and pulmonary vessels within normal limits. Lungs clear without evidence of consolidation, mass, or significant pulmonary edema. No significant pleural effusion or pneumothorax. Bones unremarkable. IMPRESSION: Normal chest radiograph. Electronically signed by: Grayson Wyatt MD 10/13/2024 11:24 PM CDT RP Due to temporary technical issues with the PACS/[email or web address] reporting system, reports are being lj d by the in-house radiologist without review as a courtesy to ensure prompt reporting the interpreting radiologist is fully responsible for the content of the report. Transcribed Date/Time: 10/14/2024 6:12 AM
== END 2024-10-14 00:37 | disposition home or self-care (01) ==
LOC: ER 21:34
DX: R07.9 Chest pain, unspecified (principal); F17.210 Nicotine dependence, cigarettes, uncomplicated
CPT/HCPCS: 36415; 71045; 80048; 80076; 83735; 84484; 85025; 93005; J2405; J7030

== ENCOUNTER 2024-10-15 07:07 | Emergency (ER) | payer SELFPAY ==
--- OUTSIDE RECORDS SUMMARY | 2024-10-15 07:13 | XMS REPORT | Continuity of Care Document ---
Author Name Unknown Address [address] [facility] [address] [place] [address] [facility] Address [address] [facility] [place] [address] Care Team Providers Care Leather Tacker Name Role Phone KRISTOPHER MIRAMONTES Primary Care Physician Unavailab JANUARY Kumar Attending Clinician Unavailable JANUARY BOO Attending Clinician Unavailable January Boo MD Attending Clinician [phone] MARYLOU AMAYA Attending Clinician Unavailab MARYLOU Linda Attending Clinician Unavailab Marylou Linda DO Attending Clinician [phone] MARCOS DODD Attending Clinician Unavailable MARCOS DODD Attending Clinician Unavailable AKASH BERNAL Attending Clinician Unavailable Akash Bernal NP Attending Clinician [phone] Luis Carlos Posey MD Attending Clinician [phone] LUIS CARLOS POSEY Attending Clinician Unavailable JOY ANDREWS Attending Clinician UnavailIshmael Desouza Attending Clinician [phone] Joy Andrews MD Attending Clinician [phone] SAAD WATTS Attending Clinician Unavailable Saad Nance Attending Clinician [phone] Ishmael DOMÍNGUEZ Attending Clinician Unavailable LUIS CARLOS POSEY Admitting Clinician Unavailable Ishmael DOMÍNGUEZ Admitting Clinician Unavailable SAAD WATTS Admitting Clinician Unavailable Payers Payer Name Policy Type Policy Number Effective Date Expirati on Date Source [facility] [id number] 2022 00:00:00 Allergies, Adverse Reactions, Alerts Allergy Name Allergy Type Status Severity Reaction(s) Onset Date Inactive Date Treating Clinician Comments Source NO KNOWN ALLERGIE S Drug Class Active [facility] Social History Social Habit Start Date Stop Date Quantity Comments Source Gender identity [facility]ION Possible [facility] Exposure to SARS-CoV-2 (event) 2022-10-01 00:00:00 2022-10-11 10:02:00 Not sure [facility] Sex assigned at 2005 00:00:00 2005 00:00:00 [facility] Smoking Status Start Date Stop Date Source Tobacco smoking consumption unknown [facility] Medications Ordered Medication Name Filled Medication Name Start Date Stop Date Current Medication? Ordering Clinician Indication Dosage Frequency Signature (SIG) Comments Components Source ondansetron 4 mg disintegrat ing tablet 09-08 00:00: 00 Yes [id number] 4mg Take 1 tablet by mouth every 4 (four) hours as needed for Nausea and Vomiting (N/V). [facility] dicyclomine 20 mg tablet 09-08 00:00: 00 Yes [id number] 20mg Take 1 tablet by mouth 4 (four) times daily. [facility] naproxen 500 mg tablet 09-08 00:00: 00 09-19 04:59 :00 Yes [id number] 500mg Take 1 tablet by mouth in the morning and 1 tablet in the evening. Take with meals. Do all this for 10 days. [facility] ondansetron (ZOFRAN-ODT ) disintegrat ing tablet 4 mg 09-06 14:00: 00 09-06 13:03 :00 No 4mg 4 mg, Oral, ONCE, 1 dose, On 09/06/24 at 0900, Routine [facility] NaCl 0.9% (NS) IV infusion 1,000 mL 2022-05 16:45: 00 03-10 17:16 :00 No 1000mL at 999 mL/hr, Intravenou s, ONCE, 1 dose, On 03/10/23 at 1145, Routine [facility] dicyclomine (BENTYL) injection 20 mg 2022-05 015 15:00: 00 03-10 14:58 :00 No 20mg 20 mg, Intramuscu lar, ONCE NOW, 1 dose, On Sat03/10/23 at 1000, Routine [facility] NaCl 0.9% (NS) bolus infusion 1,000 mL 2022-05 15:00: 00 03-10 16:10 :00 No 1000mL at 999 mL/hr, 1,000 mL, IV Infusion, ONCE, 1 dose, On Sat03/10/23 at 1000, [facility] iopamidol (ISOVUE 370-500 mL) injection 45 mL 02-10 20:48: 00 02-10 20:48 :00 No [id number] 45mL 45 mL, Intravenou s, ONCE, 1 dose, On Sat02/10/23 at 1600, Routine [facility] NaCl 0.9% (NS) bolus infusion 1,000 mL 02-10 19:30: 00 02-10 19:51 :00 No 1000mL at 999 mL/hr, 1,000 mL, IV Infusion, ONCE, 1 dose, On Sat02/10/23 at 1430, [facility] ondansetron (ZOFRAN (PF)) injection 4 mg 02-10 19:15: 00 02-10 19:06 :00 No 4mg 4 mg, Slow IV Push, ONCE, 1 dose, On Sat02/10/23 at 1415, [facility] ondansetron 4 mg disintegrat ing tablet 02-10 00:00: 00 09-08 00:00 :00 No [id number] 4mg Take 1 tablet by mouth every 8 (eight) hours as needed for Nausea and Vomiting (N/V). [facility] NaCl 0.9% (NS) bolus infusion 1,000 mL 01-15 06:30: 00 01-15 07:30 :00 No 1000mL at 999 mL/hr, 1,000 mL, IV Infusion, ONCE, 1 dose, On Sat01/15/23 at 0130, STAT [facility] ketorolac (TORADOL) injection 15 mg 01-15 06:30: 00 01-15 05:45 :00 No 15mg 15 mg, Slow IV Push, ONCE, 1 dose, On Sat01/15/23 at 0130, JUAN JOSE [facility] Nitrofurant oin&Nit. Macrocryst 100 mg capsule 01-15 00:00: 00 01-21 04:59 :00 No [id number] 100mg Take 1 capsule by mouth in the morning and 1 capsule in the evening. Do all this for 5 days. [facility] dicyclomine 20 mg tablet 01-14 00:00: 00 09-08 00:00 :00 No [id number] 20mg Take 1 tablet by mouth 4 (four) times daily as needed for Abdominal pain. [facility] iopamidol (ISOVUE 300-500 mL) injection 75 mL 01-13 22:15: 00 01-13 22:15 :00 No [id number] 75mL 75 mL, Intravenou s, ONCE, 1 dose, On Sat01/13/23 at 1715, Routine [facility] NaCl 0.9% (NS) bolus infusion 1,000 mL 01-13 21:30: 00 01-13 23:16 :00 No 1000mL at 999 mL/hr, 1,000 mL, IV Infusion, ONCE, 1 dose, On Sat01/13/23 at 1630, STAT [facility] proMETHazin e (PHENERGAN) 25 mg in NaCl 0.9% (NS) 50 mL IV piggyback 01-13 20:30: 00 01-13 20:48 :00 No 25mg 25 mg, IV Piggyback, ONCE, 1 dose, On Sat01/13/23 at 1530, JUAN JOSE [facility] proMETHazin e 25 mg tablet 01-13 00:00: 00 Yes [id number] 25mg Take 1 tablet by mouth every 6 (six) hours as needed for Nausea and Vomiting (N/V). [facility] iopamidol (ISOVUE 370-500 mL) injection 100 mL 11-18 04:15: 00 11-18 04:15 :00 No [id number] 100mL 100 mL, Intravenou s, ONCE, 1 dose, On 11/17/22 at 2315, Routine [facility] ketorolac (TORADOL) injection 15 mg 11-18 03:15: 00 11-18 02:20 :00 No 15mg 15 mg, Slow IV Push, ONCE, 1 dose, On 11/17/22 at 2215, JUAN JOSE [facility] morpHINE (2 mg/mL) injection 4 mg 11-18 02:00: 00 11-18 02:00 :00 No 4mg 4 mg, Slow IV Push, ONCE, 1 dose, On 11/17/22 at 2100, STAT [facility] NaCl 0.9% (NS) bolus infusion 1,000 mL 11-18 01:45: 00 11-18 02:18 :00 No 1000mL at 999 mL/hr, 1,000 mL, IV Infusion, ONCE, 1 dose, On 11/17/22 at 204, STAT [facility] ondansetron (ZOFRAN (PF)) injection 4 mg 11-18 01:45: 00 11-18 00:53 :00 No 4mg 4 mg, Slow IV Push, ONCE, 1 dose, On 11/17/22 at 2045, JUAN JOSE [facility] ondansetron 4 mg disintegrat ing tablet 11-17 00:00: 00 02-10 00:00 :00 No [id number] 4mg Take 1 tablet by mouth every 8 (eight) hours as needed for Nausea and Vomiting (N/V). [facility] ketorolac (TORADOL) injection 15 mg 18 16:45: 00 10-11 15:52 :00 No 15mg 15 mg, Slow IV Push, ONCE, 1 dose, On Evelina 10/11/22 at 1145, [facility] NaCl 0.9% (NS) bolus infusion 1,000 mL 10-11 16:45: 00 10-11 16:12 :00 No 1000mL at 999 mL/hr, 1,000 mL, IV Infusion, ONCE, 1 dose, On Evelina 10/11/22 at 1145, [facility] ondansetron (ZOFRAN-ODT ) disintegrat ing tablet 4 mg 10-11 16:15: 00 10-11 15:17 :00 No 4mg 4 mg, Oral, ONCE, 1 dose, On Evelina 10/11/22 at 1115, Routine [facility] haloperidol lactate (HALDOL) injection 2.5 mg 10-11 15:45: 00 10-11 15:53 :00 No 2.5mg 2.5 mg, Intravenou s, ONCE, 1 dose, On Evelina 10/11/22 at 1045, [facility] haloperidol lactate (HALDOL) injection 2.5 mg 07-27 05:45: 00 07-27 05:38 :00 No 2.5mg 2.5 mg, Intravenou s, ONCE, 1 dose, On Evelina 07/26/22 at 2345, [facility] metoclopram yeimi HCl (REGLAN) injection 10 mg 07-27 05:45: 00 07-27 05:38 :00 No 10mg 10 mg, Slow IV Push, ONCE, 1 dose, On Evelina 07/26/22 at 2345, [facility] NaCl 0.9% (NS) bolus infusion 1,000 mL 07-27 05:30: 00 07-27 07:07 :00 No 1000mL at 999 mL/hr, 1,000 mL, IV Infusion, ONCE, 1 dose, On Evelina 07/26/22 at 2330, [facility] ondansetron (ZOFRAN (PF)) injection 4 mg 2023-0 3-03 05:00: 00 07-27 05:00 :00 No 4mg 4 mg, Slow IV Push, ONCE, 1 dose, On Evelina 07/26/22 at 2300, JUAN JOSE [facility] Vital Signs Vital Name Observation Time Observation Value Comments S judy Systolic blood pressure 2024-09-08 12:55:00 122 mm[facility]Hg[facility] Diastolic blood pressure 2024-09-08 12:55:00 76 mm[Hg] [facility] Heart rate 2024-09-08 12:55:00 56 /min Un[facility] Body temperature 2024-09-08 12:55:00 36.39 Ronna [facility] Respiratory rate 2024-09-08 12:55:00 16 /min [facility] Body height 2024-09-08 12:55:00 175.3 cm [facility] Body weight 2024-09-08 12:55:00 52.164 kg [facility] BMI 2024-09-08 12:55:00 16.98 kg/m2 [facility] Oxygen saturation in Arterial blood by Pulse oximetry 2024-09-08 12:55:00 98 /min [facility] Systolic blood pressure 2024-09-06 12:59:00 140 mm[Hg] [facility] Diastolic blood pressure 2024-09-06 12:59:00 78 mm[Hg] [facility] Heart rate 2024-09-06 12:59:00 72 /min [facility] Body temperature 2024-09-06 12:59:00 36.5 Ronna [facility] Respiratory rate 2024-09-06 12:59:00 16 /min [facility] Oxygen saturation in Arterial blood by Pulse oximetry 2024-09-06 12:59:00 100 /min [facility] Systolic blood pressure 2023-03-10 17:00:00 100 mm[Hg] [facility] Diastolic blood pressure 2023-03-10 17:00:00 72 mm[Hg] [facility] Heart rate 2023-03-10 17:00:00 60 /min [facility] Body temperature 2023-03-10 17:00:00 37.5 Ronna [facility] Respiratory rate 2023-03-10 17:00:00 18 /min [facility] Oxygen saturation in Arterial blood by Pulse oximetry 2023-03-10 17:00:00 99 /min [facility] Body height 2023-03-10 13:25:00 170.2 cm [facility] Body weight 2023-03-10 13:25:00 52.164 kg [facility] BMI 2023-03-10 13:25:00 18.01 kg/m2 [facility] Body mass index (BMI) [Percentile] Per age and sex 2023-03-10 13:25:00 7.10 % [facility] Systolic blood pressure 2023-02-10 20:00:00 142 mm[Hg] [facility] Diastolic blood pressure 2023-02-10 20:00:00 96 mm[Hg] [facility] Heart rate 2023-02-10 20:00:00 94 /min [facility] Respiratory rate 2023-02-10 20:00:00 19 /min [facility] Oxygen saturation in Arterial blood by Pulse oximetry 2023-02-10 20:00:00 99 /min [facility] Body temperature 2023-02-10 18:00:00 36.94 Ronna [facility] Body height 2023-02-10 18:00:00 175.3 cm [facility] Body weight 2023-02-10 18:00:00 54.341 kg [facility] BMI 2023-02-10 18:00:00 17.69 kg/m2 [facility] Body mass index (BMI) [Percentile] Per age and sex 2023-02-10 18:00:00 4.99 % [facility] Systolic blood pressure 2023-01-15 09:00:00 105 mm[Hg] [facility] Diastolic blood pressure 2023-01-15 09:00:00 60 mm[Hg] [facility] Heart rate 2023-01-15 09:00:00 52 /min [facility] Respiratory rate 2023-01-15 09:00:00 22 /min [facility] Oxygen saturation in Arterial blood by Pulse oximetry 2023-01-15 09:00:00 99 /min [facility] Body temperature 2023-01-15 04:14:00 37.28 Ronna [facility] Body height 2023-01-15 04:14:00 175.3 cm [facility] Body weight 2023-01-15 04:14:00 52.799 kg [facility] BMI 2023-01-15 04:14:00 17.19 kg/m2 [facility] Body mass index (BMI) [Percentile] Per age and sex 2023-01-15 04:14:00 2.55 % [facility] Systolic blood pressure 2023-01-14 16:45:00 123 mm[Hg] [facility] Diastolic blood pressure 2023-01-14 16:45:00 73 mm[Hg] [facility] Heart rate 2023-01-14 16:45:00 57 /min [facility] Body temperature 2023-01-14 16:45:00 37.33 Ronna [facility] Respiratory rate 2023-01-14 16:45:00 14 /min [facility] Body height 2023-01-14 16:45:00 175.3 cm [facility] Body weight 2023-01-14 16:45:00 58.968 kg [facility] BMI 2023-01-14 16:45:00 19.20 kg/m2 [facility] Body mass index (BMI) [Percentile] Per age and sex 2023-01-14 16:45:00 19.85 % [facility] Oxygen saturation in Arterial blood by Pulse oximetry 2023-01-14 16:45:00 99 /min [facility] Systolic blood pressure 2023-01-14 00:00:00 114 mm[Hg] [facility] Diastolic blood pressure 2023-01-14 00:00:00 67 mm[Hg] [facility] Heart rate 2023-01-14 00:00:00 57 /min [facility] Respiratory rate 2023-01-14 00:00:00 16 /min [facility] Oxygen saturation in Arterial blood by Pulse oximetry 2023-01-14 00:00:00 98 /min [facility] Body temperature 2023-01-13 19:34:00 36.5 Ronna [facility] Body height 2023-01-13 19:34:00 175.3 cm [facility] Body weight 2023-01-13 19:34:00 58.968 kg [facility] BMI 2023-01-13 19:34:00 19.20 kg/m2 [facility] Body mass index (BMI) [Percentile] Per age and sex 2023-01-13 19:34:00 19.86 % [facility] Systolic blood pressure 2022-11-18 04:10:00 98 mm[Hg] [facility] Diastolic blood pressure 2022-11-18 04:10:00 61 mm[Hg] [facility] Heart rate 2022-11-18 04:10:00 71 /min [facility] Body temperature 2022-11-18 04:10:00 37 Ronna [facility] Oxygen saturation in Arterial blood by Pulse oximetry 2022-11-18 04:10:00 97 /min [facility] Respiratory rate 2022-11-18 02:22:00 16 /min [facility] Body weight 2022-11-17 23:13:00 63.504 kg [facility] Systolic blood pressure 2022-10-11 16:12:00 133 mm[Hg] [facility] Diastolic blood pressure 2022-10-11 16:12:00 95 mm[Hg] [facility] Heart rate 2022-10-11 16:12:00 84 /min [facility] Respiratory rate 2022-10-11 16:12:00 16 /min [facility] Oxygen saturation in Arterial blood by Pulse oximetry 2022-10-11 16:12:00 98 /min [facility] Body temperature 2022-10-11 15:05:00 37 Ronna [facility] Body height 2022-10-11 15:05:00 175.3 cm [facility] Body weight 2022-10-11 15:05:00 63.504 kg [facility] BMI 2022-10-11 15:05:00 20.67 kg/m2 [facility] Body mass index (BMI) [Percentile] Per age and sex 2022-10-11 15:05:00 40.96 % [facility] Systolic blood pressure 2022-07-27 07:00:00 110 mm[Hg] [facility] Diastolic blood pressure 2022-07-27 07:00:00 68 mm[Hg] [facility] Heart rate 2022-07-27 07:00:00 60 /min [facility] Body temperature 2022-07-27 07:00:00 37.28 Ronna [facility] Respiratory rate 2022-07-27 07:00:00 17 /min [facility] Oxygen saturation in Arterial blood by Pulse oximetry 2022-07-27 07:00:00 96 /min [facility] Body height 2022-07-27 04:37:00 175.3 cm [facility] Body weight 2022-07-27 04:37:00 56.337 kg [facility] BMI 2022-07-27 04:37:00 18.34 kg/m2 [facility] Body mass index (BMI) [Percentile] Per age and sex 2022-07-27 04:37:00 11.37 % [facility] Procedures Procedure Date / Time Performed Performing Clinician Source POCT TEST 2024-09-08 13:20:00 Oumou Boo [facility] URINALYSIS 2024-09-08 13:15:00 January Boo [facility] URINE DRUG (IMMUNOASSAY) - COMPREHENSIVE DRUG SCREEN W/O REFLEX 2024-09-08 13:15:00 January Boo [facility] FENTANYL (IMMUNOASSAY) 2024-09-08 13:15:00 Philip Boo [facility] HB ECG ROUTINE & RHYTHM STRIP 2023-03-10 15:10:56 Akash Bernal [facility] URINALYSIS 2023-03-10 14:53:00 Akash Bernal [facility] POCT TEST 2023-03-10 14:53:00 Akash Bernal [facility] URINE DRUG (IMMUNOASSAY) - COMPREHENSIVE DRUG SCREEN W/O REFLEX 2023-03-10 14:53:00 Akash Bernal [facility] AC ABG + LACTIC ACID 2023-03-10 14:36:00 Selina Bernal [facility] CREATINE KINASE 2023-03-10 14:25:00 [facility] 2023-03-10 14:25:00 Akash Bernal [facility] COMP. METABOLIC PANEL ([id number]) 2023-03-10 14:25:00 Akash Bernal [facility] CBC WITH DIFF 2023-03-10 14:25:00 Akash Bernal [facility] CONSENT/REFUSAL FOR DIAGNOSIS AND TREATMENT 2023-03-10 13:19:54 Doctor Unassigned, [employer]emy [employer] [facility] US OVARY TORSION 2023-02-10 22:25:00 Luis Carlos Posey Un [facility] CT ABDOMEN PELVIS W CONTRAST 2023-02-10 20:53:59 Luis Carlos Posey [facility] URINE DRUG (IMMUNOASSAY) - COMPREHENSIVE DRUG SCREEN 2023-02-10 20:28:00 Luis Carlos Posey [facility] URINALYSIS 2023-02-10 20:28:00 Luis [facility]osey [facility] TEST, SERUM 2023-02-10 19:51:00 Luis Carlos Posey [facility] COMP. METABOLIC PANEL ([id number]) 2023-02-10 18:57:00 Luis Carlos Posey [facility] CBC WITH DIFF 2023-02-10 18:57:00 Luis Carlos Posey [facility] CONSENT/REFUSAL FOR DIAGNOSIS AND TREATMENT 2023-02-10 17:57:28 Doctor Unassigned, [employer] [facility] US OVARY TORSION 2023-01-15 08:49:25 Ishmael Domínguez [facility] COMP. METABOLIC PANEL ([id number]) 2023-01-15 05:37:00 Ishmael Domínguez [facility] CBC WITH DIFF 2023-01-15 05:37:00 Ishmael Domínguez [facility] URINALYSIS 2023-01-15 05:37:00 Ishmael Domínguez [facility] CONSENT/REFUSAL FOR DIAGNOSIS AND TREATMENT 2023-01-15 04:02:38 Doctor Unassigned, [employer] [facility] CONSENT/REFUSAL FOR DIAGNOSIS AND TREATMENT 2023-01-14 17:36:09 Doctor Unassigned, [employer] [facility] CONSENT/REFUSAL FOR DIAGNOSIS AND TREATMENT 2023-01-14 16:41:53 Doctor Unassigned, [employer] [facility] CT ABDOMEN PELVIS W CONTRAST 2023-01-13 21:22:33 Saad Watts [facility] URINALYSIS 2023-01-13 20:48:00 Saad [facility] POCT TEST 2023-01-13 20:47:00 Saad Watts [facility] LIPASE 2023-01-13 20:39:00 Saad [facility] COMP. METABOLIC PANEL ([id number]) 2023-01-13 20:39:00 Saad Watts [facility] CBC WITH DIFF 2023-01-13 20:39:00 Saad Watts [facility] CONSENT/REFUSAL FOR DIAGNOSIS AND TREATMENT 2023-01-13 19:21:26 Doctor Unassigned, [employer] [facility] CT ABDOMEN PELVIS W CONTRAST 2022-11-18 03:17:05 Ishmael Domínguez [facility] XR CHEST 1 VW 2022-11-18 03:08:22 Ishmael Domínguez [facility] POCT TEST 2022-11-18 01:00:00 Ishmael Domínguez e [facility] MAGNESIUM 2022-11-18 00:47:00 Ishmael Domínguez [facility] COMP. METABOLIC PANEL ([id number]) 2022-11-18 00:47:00 Ishmael Domínguez [facility] CBC WITH DIFF 2022-11-18 00:47:00 Ishmael Domínguez [facility] URINALYSIS 2022-11-18 00:47:00 Ishmael Domínguez [facility] LIPASE 2022-11-18 00:47:00 Ishmael Domínguez [facility] CONSENT/REFUSAL FOR DIAGNOSIS AND TREATMENT 2022-11-17 23:10:12 Doctor Unassigned, [employer] [facility] CBC WITH DIFF 2022-10-11 15:44:00 Ishmael Domínguez [facility] POCT TEST 2022-10-11 15:13:00 Ishmael Domínguez [facility] URINALYSIS 2022-10-11 15:12:00 Ishmael Domínguez [facility] CONSENT/REFUSAL FOR DIAGNOSIS AND TREATMENT 2022-10-11 14:57:40 Doctor Unassigned, [employer] [facility] POCT TEST 2022-07-27 06:05:00 Esme Amaya ra [facility] URINALYSIS 2022-07-27 06:03:00 [facility]SENT/REFUSAL FOR DIAGNOSIS AND TREATMENT 2022-07-27 04:23:13 Doctor Unassigned, [employer] [facility] NOTICE OF PRIVACY PRACTICES 2022-07-27 04:22:45 Doctor Unassigned, [employer] [facility] Encounters Start Date/Time End Date/Time Encounter Type Admission Type Attending [facility] Care Facility Care Department Encounter ID Source 2024-09-08 07:56:00 2024-09-08 09:28:00 Emergency X JANUARY BOO [facility] ERT [id number] [facility] 2024-09-08 07:56:00 2024-09-08 09:28:00 Emergency January Boo [facility] [id number] 350.1.13.10 4.2.7.2.686 [id number] [facility] 2024-09-06 08:00:00 2024-09-06 09:27:00 Emergency X MARYLOU AMAYA [facility] ERT [id number] [facility] 2024-09-06 08:00:00 2024-09-06 09:27:00 Emergency Marylou Amaya [facility] [id number] 350.1.13.10 4.2.7.2.686 [id number] [facility] 2024-08-06 12:50:00 2024-08-06 14:44:00 Emergency X MARCOS DODD [facility]ICCA [facility] ERT [id number] [facility] 2023-03-10 08:26:00 2023-03-10 12:18:00 Emergency X AKASH BERNAL [facility] ERT [id number] [facility] 2023-03-10 08:26:00 2023-03-10 12:18:00 Emergency Akash Bernal [facility] [id number] 350.1.13.10 4.2.7.2.686 [id number] [facility] 2023-02-10 13:02:00 2023-02-10 18:18:00 Emergency Luis Carlos Posey [facility] [id number] 350.1.13.10 4.2.7.2.686 [id number] [facility] 2023-02-10 13:02:00 2023-02-10 18:18:00 Emergency X LUIS CARLOS POSEY [facility] ERT [id number] [facility] 2023-01-14 23:18:00 2023-01-15 04:40:00 Emergency X JOY ANDREWS [facility] ERT [id number] [facility] 2023-01-14 23:18:00 2023-01-15 04:40:00 Emergency SangIshmael LorenaJoy miles [facility] [id number] 350.1.13.10 4.2.7.2.686 [id number] [facility] 2023-01-14 11:48:00 2023-01-14 13:39:00 Emergency X SAAD WATTS [facility] ERT [id number] [facility] 2023-01-14 11:48:00 2023-01-14 13:39:00 Emergency Saad Watts [facility] 1.2.840.114 350.1.13.10 4.2.7.2.686 [id number] [facility] 2023-01-13 14:37:00 2023-01-13 19:09:00 Emergency X SAAD WATTS [facility] ERT [id number] [facility] 2023-01-13 14:37:00 2023-01-13 19:09:00 Emergency Saad Watts [facility] 1.2.840.114 350.1.13.10 4.2.7.2.686 [id number] [facility] 2022-11-17 18:15:00 2022-11-17 23:22:00 Emergency X Ishmael DOMÍNGUEZ [facility] ERT [id number] [facility] 2022-11-17 18:15:00 2022-11-17 23:22:00 Emergency SangIshmael [facility] 1.2.840.114 350.1.13.10 4.2.7.2.686 [id number] [facility] 2022-10-11 10:09:00 2022-10-11 11:41:00 Emergency X SANGIshmael [facility] ERT [id number] [facility] 2022-10-11 10:09:00 2022-10-11 11:41:00 Emergency Ishmael Domínguez [facility] 1.2.840.114 350.1.13.10 4.2.7.2.686 [id number] [facility] 2022-07-26 22:43:00 2022-07-27 01:14:00 Emergency X MARYLOU AMAYA [facility] ERT [id number] [facility] 2022-07-26 22:43:00 2022-07-27 01:14:00 Emergency Marylou Amaya [facility] [id number] 350.1.13.10 4.2.7.2.686 [id number] [facility] Results Test Description Test Time Test Comments Results Result Co mments Source [facility] (86381)2023-03-10 14:57:13* Test Item Value Reference Range Interpretation Comme nts NA (test code = 3417994624) 141 mmol/L 135-145 K (test code = 1897205483) 3.5 mmol/L 3.5-5.0 CL (test code = 0730972716) 105 mmol/L 98-108 CO2 TOTAL (test code = 9448384338) 19 mmol/L 23-31 L AGAP (test code = 4225597092) 17 2-16 H BUN (test code = 2132608369) 10 mg/dL 7-23 GLUCOSE (test code = 6675193785) 160 mg/dL 70-110 H CREATININE (test code = 1360994828) 0.63 mg/dL 0.50-1.04 TOTAL BILI (test code = 2571820391) 0.5 mg/dL 0.1-1.1 CALCIUM (test code = 4934433722) 10.0 mg/dL 8.6-10.6 T PROTEIN (test code = 2428890160) 7.9 g/dL 6.3-8.2 ALBUMIN (test code = 7244515773) 4.7 g/dL 3.5-5.0 ALK PHOS (test code = 0958830419) 79 U/L 34-122 ALTv (test code = 1742-6) 19 U/L 5-35 AST(SGOT) (test code = 6057253475) 23 U/L 13-40 eGFR (test code = 7017206021) 123.1 mL/min/1.73m2 BREANNA (test code = BREANNA) [...] imaging tests). Lab Interpretation (test code = 47436-6) [facility] 14:56:53* Test Item Value Reference Range Interpretation Comme nts LIPASE (test code = 6636447758) 48 U/L 0-220 Lab Interpretation (test cod e = 55089-3) Normal [facility]CREAT[facility] [id number] 14:56:53* Test Item Value Reference Range Interpretation Comme nts CK (test code = 0864327943) 58 U/L 33-194 Lab Interpretation (test cod e = 36780-7) Normal [facility] [id number] 14:53:00* Test Item Value Reference Range Interpretation Comme nts POCT PREG (test code = 1605) Negative On board controls acceptable with C Line (test code = 3574) Yes POCT PREG LOT # (test code = 3575) [id number] POCT PREG TEST DATE ( test code = 3576) 05/29/2024 Lab Interpretation (test cod e = 52498-6) [facility] WITH [id number] 14:43:54* Test Item Value Reference Range Interpretation [...] 34.2 g/dL 32.0-36.0 RDW-SD (test code = 18962-9) 41.4 fL 38.5-49.0 RDW-CV (test code = 788-0) 11.8 % 11.5-14.0 PLT (test code = 777-3) 304 See_Comment [Automated message] The system which generated this result transmitted reference range: 135 - 361 10*3/?L. The reference range was not used to interpret this result as normal/abnormal. MPV (test code = 37685-9) 10.9 fL 9.4-13.3 NRBC/100 WBC (test code = 9236524197) 0.0 See_Comment [Automated message] The system which generated this result transmitted reference range: 0.0 - 10.0 /100 WBCs. The reference range was not used to interpret this result as normal/abnormal. NRBC x10^3 (test code = 8298047948) See_Comment [Automated message] The system which generated this result transmitted reference range: 10*3/?L. The reference range was not used to interpret this result as normal/abnormal. GRAN MAT (NEUT) % (test code = 770-8) 90.8 % IMM GRAN % (test code = 4275151438) 0.30 % LYMPH % (test code = 736-9) 5.3 % MONO % (test code = 5905-5) 3.3 % EOS % (test code = 713-8) 0.0 % BASO % (test code = 706-2) 0.3 % GRAN MAT x10^3(ANC) (test code = 2677807885) 13.38 10*3/uL 1.50-10.30 H IMM GRAN x10^3 (test code = 4953166988) 0.05 10*3/uL 0.00-0.06 LYMPH x10^3 (test code = 731-0) 0.78 10*3/uL 0.70-7.40 MONO x10^3 (test code = 742-7) 0.49 10*3/uL 0.00-0.50 EOS x10^3 (test code = 711-2) 0.00-0.40 BASO x10^3 (test code = 704-7) 0.04 10*3/uL 0.00-0.10 Lab Interpretation (test code = 28756-6) Abnormal [facility], [id number] 20:11:53* Test Item Value Reference Range Interpretation Comme nts PREG SERUM (test code = 4315784934) Negative BREANNA (test code = BREANNA) Less than 10 IU/L. ?If low titer or ectopic is suspected, resubmit specimen in 48-72 hours. [facility] (06040)2023-02-10 19:31:01* Test Item Value Reference Range Interpretation Comme nts NA (test code = 9388645498) 140 mmol/L 135-145 K (test code = 8997561963) 4.0 mmol/L 3.5-5.0 CL (test code = 9144542101) 111 mmol/L 98-108 H CO2 TOTAL (test code = 9794970630) 17 mmol/L 23-31 L AGAP (test code = 2411726708) 12 2-16 BUN (test code = 7932563749) 8 mg/dL 7-23 GLUCOSE (test code = 7321470732) 136 mg/dL 70-110 H CREATININE (test code = 3269895449) 0.70 mg/dL 0.50-1.04 TOTAL BILI (test code = 1868523070) 0.3 mg/dL 0.1-1.1 CALCIUM (test code = 5514992316) 9.8 mg/dL 8.6-10.6 T PROTEIN (test code = 1550187637) 8.0 g/dL 6.3-8.2 ALBUMIN (test code = 2404441189) 4.7 g/dL 3.5-5.0 ALK PHOS (test code = 4224956656) 92 U/L 34-122 ALTv (test code = 1742-6) 17 U/L 5-35 AST(SGOT) (test code = 7875384297) 26 U/L 13-40 eGFR (test code = 0912451191) 109.0 mL/min/1.73m2 BREANNA (test code = BREANNA) [...] imaging tests). Lab Interpretation (test code = 94070-0) Abnormal [facility] WITH [id number] 19:20:02* Test Item Value Reference Range Interpretation [...] 34.4 g/dL 32.0-36.0 RDW-SD (test code = 97662-8) 42.3 fL 38.5-49.0 RDW-CV (test code = 788-0) 12.0 % 11.5-14.0 PLT (test code = 777-3) 315 See_Comment [Automated message] The system which generated this result transmitted reference range: 135 - 361 10*3/?L. The reference range was not used to interpret this result as normal/abnormal. MPV (test code = 70408-1) 10.3 fL 9.4-13.3 NRBC/100 WBC (test code = 2593001569) 0.0 See_Comment [Automated message] The system which generated this result transmitted reference range: 0.0 - 10.0 /100 WBCs. The reference range was not used to interpret this result as normal/abnormal. NRBC x10^3 (test code = 9316582040) See_Comment [Automated message] The system which generated this result transmitted reference range: 10*3/?L. The reference range was not used to interpret this result as normal/abnormal. GRAN MAT (NEUT) % (test code = 770-8) 78.0 % IMM GRAN % (test code = 4043392882) 0.40 % LYMPH % (test code = 736-9) 14.7 % MONO % (test code = 5905-5) 6.4 % EOS % (test code = 713-8) 0.2 % BASO % (test code = 706-2) 0.3 % GRAN MAT x10^3(ANC) (test code = 9051196689) 10.50 10*3/uL 1.50-10.30 H IMM GRAN x10^3 (test code = 6071132790) 0.06 10*3/uL 0.00-0.06 LYMPH x10^3 (test code = 731-0) 1.98 10*3/uL 0.70-7.40 MONO x10^3 (test code = 742-7) 0.86 10*3/uL 0.00-0.50 H EOS x10^3 (test code = 711-2) 0.03 10*3/uL 0.00-0.40 BASO x10^3 (test code = 704-7) 0.04 10*3/uL 0.00-0.10 Lab Interpretation (test code = 92470-9) Abnormal [facility]. METABOLIC PANEL (40931)2023-01-15 06:02:07* Test Item Value Reference Range Interpretation Comme nts NA (test code = 6240481669) 143 mmol/L 135-145 K (test code = 1664253833) 3.7 mmol/L 3.5-5.0 CL (test code = 2399560094) 104 mmol/L 98-108 CO2 TOTAL (test code = 1981394890) 29 mmol/L 23-31 AGAP (test code = 8550378502) 10 2-16 BUN (test code = 0699623208) 19 mg/dL 7-23 GLUCOSE (test code = 9433611006) 104 mg/dL 70-110 CREATININE (test code = 1354966013) 0.80 mg/dL 0.50-1.04 TOTAL BILI (test code = 4376549189) 0.4 mg/dL 0.1-1.1 CALCIUM (test code = 7930905973) 9.6 mg/dL 8.6-10.6 T PROTEIN (test code = 0964527605) 7.7 g/dL 6.3-8.2 ALBUMIN (test code = 3015872653) 4.6 g/dL 3.5-5.0 ALK PHOS (test code = 3421989007) 59 U/L 34-122 ALTv (test code = 1742-6) 17 U/L 5-35 AST(SGOT) (test code = 5652331522) 24 U/L 13-40 eGFR (test code = 0161105343) 93.4 mL/min/1.73m2 BREANNA (test code = BREANNA) [...] or urine or abnormalities in imaging tests). [facility] WITH [id number] 05:49:10* Test Item Value Reference Range Interpretation Comme nts WBC (test code = 6690-2) 10.32 See_Comment [Automated Ever[employer]] The system which generated this result transmitted reference range: 4.50 - 13.50 10*3/?L. The reference range was not used to interpret this result as normal/abnormal. RBC (test code = 789-8) 4.03 See_Comment L [Automated Ever[employer]] The system which generated this result transmitted [...] 34.0 g/dL 32.0-36.0 RDW-SD (test code = 04238-3) 43.1 fL 38.5-49.0 RDW-CV (test code = 788-0) 12.2 % 11.5-14.0 PLT (test code = 777-3) 269 See_Comment [Automated EverTrue] The system which generated this result transmitted reference range: 135 - 361 10*3/?L. The reference range was not used to interpret this result as normal/abnormal. MPV (test code = 20909-8) 10.2 fL 9.4-13.3 NRBC/100 WBC (test code = 2069528968) 0.0 See_Comment [Automated me ssage] The system which generated this result transmitted reference range: 0.0 - 10.0 /100 WBCs. The reference range was not used to interpret this result as normal/abnormal. NRBC x10^3 (test code = 0341896979) See_Comment [Automated messa ge] The system which generated this result transmitted reference range: 10*3/?L. The reference range was not used to interpret this result as normal/abnormal. GRAN MAT (NEUT) % (test code = 770-8) 76.5 % IMM GRAN % (test code = 0260280433) 0.30 % LYMPH % (test code = 736-9) 14.8 % MONO % (test code = 5905-5) 8.2 % EOS % (test code = 713-8) 0.0 % BASO % (test code = 706-2) 0.2 % GRAN MAT x10^3(ANC) (test code = 4318582470) 7.89 10*3/uL 1.50-10.30 IMM GRAN x10^3 (test code = 5598647340) 0.03 10*3/uL 0.00-0.06 LYMPH x10^3 (test code = 731-0) 1.53 10*3/uL 0.70-7.40 MONO x10^3 (test code = 742-7) 0.85 10*3/uL 0.00-0.50 H EOS x10^3 (test code = 711-2) 0.00-0.40 BASO x10^3 (test code = 704-7) 0.00-0.10 Lab Interpretation (test code = 50372-0) [facility]normal [facility] (58060)2023-01-13 21:14:31* Test Item Value Reference Range Interpretation Comme nts NA (test code = 4009579401) 142 mmol/L 135-145 K (test code = 5369051802) 3.3 mmol/L 3.5-5.0 L CL (test code = 4916172575) 105 mmol/L 98-108 CO2 TOTAL (test code = 3375172645) 18 mmol/L 23-31 L AGAP (test code = 4932032086) 19 2-16 H BUN (test code = 6914077620) 14 mg/dL 7-23 GLUCOSE (test code = 9192242737) 161 mg/dL 70-110 H CREATININE (test code = 7520344783) 0.72 mg/dL 0.50-1.04 TOTAL BILI (test code = 0268784558) 0.6 mg/dL 0.1-1.1 CALCIUM (test code = 4863417508) 10.4 mg/dL 8.6-10.6 T PROTEIN (test code = 6214328472) 8.4 g/dL 6.3-8.2 H ALBUMIN (test code = 0797866972) 4.9 g/dL 3.5-5.0 ALK PHOS (test code = 7498362218) 72 U/L 34-122 ALTv (test code = 1742-6) 33 U/L 5-35 AST(SGOT) (test code = 7225010393) 26 U/L 13-40 eGFR (test code = 7275747156) 105.5 mL/min/1.73m2 BREANNA (test code = BREANNA) [...] imaging tests). Lab Interpretation (test code = 31301-2) Abnormal [facility] 21:06:28* Test Item Value Reference Range Interpretation Comme nts LIPASE (test code = 7548207003) 28 U/L 0-220 Lab Interpretation (test cod e = 05229-0) Normal [facility] WITH [id number] 20:55:10* Test Item Value Reference Range Interpretation [...] 35.5 g/dL 32.0-36.0 RDW-SD (test code = 57820-8) 40.0 fL 38.5-49.0 RDW-CV (test code = 788-0) 12.0 % 11.5-14.0 PLT (test code = 777-3) 308 See_Comment [Automated message] The system which generated this result transmitted reference range: 135 - 361 10*3/?L. The reference range was not used to interpret this result as normal/abnormal. MPV (test code = 72076-4) 10.8 fL 9.4-13.3 NRBC/100 WBC (test code = 9555379046) 0.0 See_Comment [Automated message] The system which generated this result transmitted reference range: 0.0 - 10.0 /100 WBCs. The reference range was not used to interpret this result as normal/abnormal. NRBC x10^3 (test code = 0722181900) See_Comment [Automated message] The system which generated this result transmitted reference range: 10*3/?L. The reference range was not used to interpret this result as normal/abnormal. GRAN MAT (NEUT) % (test code = 770-8) 88.1 % IMM GRAN % (test code = 3123530061) 0.30 % LYMPH % (test code = 736-9) 6.7 % MONO % (test code = 5905-5) 4.7 % EOS % (test code = 713-8) 0.0 % BASO % (test code = 706-2) 0.2 % GRAN MAT x10^3(ANC) (test code = 1429975118) 10.65 10*3/uL 1.50-10.30 H IMM GRAN x10^3 (test code = 9069593741) 0.04 10*3/uL 0.00-0.06 LYMPH x10^3 (test code = 731-0) 0.81 10*3/uL 0.70-7.40 MONO x10^3 (test code = 742-7) 0.57 10*3/uL 0.00-0.50 H EOS x10^3 (test code = 711-2) 0.00-0.40 BASO x10^3 (test code = 704-7) 0.03 10*3/uL 0.00-0.10 Lab Interpretation (test code = 03336-1) Abnormal [facility] [id number] 20:47:00* Test Item Value Reference Range Interpretation Comme nts POCT PREG (test code = 1605) Negative On board controls acceptable with C Line (test code = 3574) Yes POCT PREG LOT # (test code = 3575) [id number] POCT PREG TEST DATE ( test code = 3576) 2024-05-29 Lab Interpretation (test cod e = 64506-4) Normal [facility] WITH [id number] 02:16:05* Test Item Value Reference Range Interpretation [...] 34.3 g/dL 32.0-36.0 RDW-SD (test code = 77629-1) 42.6 fL 38.5-49.0 RDW-CV (test code = 788-0) 12.4 % 11.5-14.0 PLT (test code = 777-3) 339 See_Comment [Automated message] The system which generated this result transmitted reference range: 135 - 361 10*3/?L. The reference range was not used to interpret this result as normal/abnormal. MPV (test code = 38610-0) 10.8 fL 9.4-13.3 NRBC/100 WBC (test code = 1419801874) 0.0 See_Comment [Automated message] The system which generated this result transmitted reference range: 0.0 - 10.0 /100 WBCs. The reference range was not used to interpret this result as normal/abnormal. NRBC x10^3 (test code = 3113736135) See_Comment [Automated message] The system which generated this result transmitted reference range: 10*3/?L. The reference range was not used to interpret this result as normal/abnormal. GRAN MAT (NEUT) % (test code = 770-8) 88.1 % IMM GRAN % (test code = 4848902779) 0.50 % LYMPH % (test code = 736-9) 5.7 % MONO % (test code = 5905-5) 5.2 % EOS % (test code = 713-8) 0.2 % BASO % (test code = 706-2) 0.3 % GRAN MAT x10^3(ANC) (test code = 7384280116) 15.48 10*3/uL 1.50-10.30 H IMM GRAN x10^3 (test code = 9935744554) 0.08 10*3/uL 0.00-0.06 H LYMPH x10^3 (test code = 731-0) 1.01 10*3/uL 0.70-7.40 MONO x10^3 (test code = 742-7) 0.92 10*3/uL 0.00-0.50 H EOS x10^3 (test code = 711-2) 0.04 10*3/uL 0.00-0.40 BASO x10^3 (test code = 704-7) 0.06 10*3/uL 0.00-0.10 Lab Interpretation (test code = 55209-9) [facility]normal [facility] 01:53:23* Test Item Value Reference Range Interpretation Comme nts MAGNESIUM (test code = 5341013213) 1.8 mg/dL 1.7-2.4 Lab Interpretation (test cod e = 09696-3) Normal [facility] (63630)2022-11-18 01:53:02* Test Item Value Reference Range Interpretation Comme nts NA (test code = 4613556838) 144 mmol/L 135-145 K (test code = 2911796571) 3.6 mmol/L 3.5-5.0 CL (test code = 8607322932) 106 mmol/L 98-108 CO2 TOTAL (test code = 2978876302) 22 mmol/L 23-31 L AGAP (test code = 4244280943) 16 2-16 BUN (test code = 9977501159) 9 mg/dL 7-23 GLUCOSE (test code = 5706191676) 146 mg/dL 70-110 H CREATININE (test code = 1893460761) 0.72 mg/dL 0.50-1.04 TOTAL BILI (test code = 9929160206) 0.7 mg/dL 0.1-1.1 CALCIUM (test code = 9518409587) 10.0 mg/dL 8.6-10.6 T PROTEIN (test code = 2811771453) 7.9 g/dL 6.3-8.2 ALBUMIN (test code = 1387334328) 4.7 g/dL 3.5-5.0 ALK PHOS (test code = 8845402228) 80 U/L 34-122 ALTv (test code = 1742-6) 18 U/L 5-35 AST(SGOT) (test code = 4646683818) 22 U/L 13-40 eGFR (test code = 1133399526) 105.5 mL/min/1.73m2 BREANNA (test code = BREANNA) [...] imaging tests). Lab Interpretation (test code = 49972-1) [facility]normal [facility] 01:52:42* Test Item Value Reference Range Interpretation Comme nts LIPASE (test code = 6234094853) 36 U/L 0-220 Lab Interpretation (test cod e = 07741-6) Normal [facility]PO[facility] [id number] 01:00:00* Test Item Value Reference Range Interpretation Comme nts POCT PREG (test code = 1605) Negative On board controls acceptable with C Line (test code = 3574) Yes Lab Interpretation (test cod e = 82491-2) [facility] WITH [id number] 16:20:58* Test Item Value Reference Range Interpretation Comme nts WBC (test code = 6690-2) 9.56 See_Comment [Automated [employer]] The system which generated this result transmitted reference range: 4.50 - 13.50 10*3/?L. The reference range was not used to interpret this result as normal/abnormal. RBC (test code = 789-8) 4.36 See_Comment [Automated [employer]] The system which generated this result [...] 34.0 g/dL 32.0-36.0 RDW-SD (test code = 11750-2) 42.1 fL 38.5-49.0 RDW-CV (test code = 788-0) 12.1 % 11.5-14.0 PLT (test code = 777-3) 273 See_Comment [Automated [employer]] The system which generated this result transmitted reference range: 135 - 361 10*3/?L. The reference range was not used to interpret this result as normal/abnormal. MPV (test code = 57504-6) 10.6 fL 9.4-13.3 NRBC/100 WBC (test code = 1152730325) 0.0 See_Comment [Automated me ssage] The system which generated this result transmitted reference range: 0.0 - 10.0 /100 WBCs. The reference range was not used to interpret this result as normal/abnormal. NRBC x10^3 (test code = 0404549372) See_Comment [Automated messa ge] The system which generated this result transmitted reference range: 10*3/?L. The reference range was not used to interpret this result as normal/abnormal. GRAN MAT (NEUT) % (test code = 770-8) 84.4 % IMM GRAN % (test code = 0663718437) 0.40 % LYMPH % (test code = 736-9) 11.7 % MONO % (test code = 5905-5) 3.2 % EOS % (test code = 713-8) 0.1 % BASO % (test code = 706-2) 0.2 % GRAN MAT x10^3(ANC) (test code = 3813306558) 8.06 10*3/uL 1.50-10.30 IMM GRAN x10^3 (test code = 1746925284) 0.04 10*3/uL 0.00-0.06 LYMPH x10^3 (test code = 731-0) 1.12 10*3/uL 0.70-7.40 MONO x10^3 (test code = 742-7) 0.31 10*3/uL 0.00-0.50 EOS x10^3 (test code = 711-2) 0.00-0.40 BASO x10^3 (test code = 704-7) 0.00-0.10 Lab Interpretation (test code = 37454-3) [facility]normal [facility] [id number] 15:13:00* Test Item Value Reference Range Interpretation Comme nts POCT PREG (test code = 1605) Negative On board controls acceptable with C Line (test code = 3574) Yes POCT PREG LOT # (test code = 3575) HCG [id number] POCT PREG TEST DATE (test code = 3576) 01/02/2024 Lab Interpretation (test cod e = 38570-1) Normal [facility] [id number] 06:05:00* Test Item Value Reference Range Interpretation Comme nts POCT PREG (test code = 1605) Negative On board controls acceptable with C Line (test code = 3574) Positive POCT PREG LOT # (test code = 3575) [id number] POCT PREG TEST DATE ( test code = 3576) 08/25/2023 Lab Interpretation (test cod e = 06925-9) Normal [facility] Notes Date/Time Note Provider Source 2024-09-08 [...] with steady gait, in no apparent distress. [facility] 2024-09-08 07:53:01 Pt arrived ambulatory with mother for abdominal pain since this morning. Pt started her period this morning. Denies smoking weed recently [employer] Tawanna Vicente RN [facility] 2024-09-06 09:09:36 Pt still not in WR. Pt left before disposition [employer] Tawanna Vicente RN [facility] 2024-09-06 08:37:58 Physician to WR with PO fluids to PO challenge and patient not found in WR. [facility] 2024-09-06 07:58:06 Patient states: "This morning I started having vomiting, chills and diarrhea" Linda Alcaraz RN [facility] 2024-09-06 07:51:00 [facility] Emergency Department Note Patient Name: Harlan [...] signed by: Marylou Amaya DO 09/06/24 0910 [facility] 2023-02-10 18:15:53 Formatting of this n ote might be different from the original. Pt wanting to leave. Advised that MD was typing up discharge if she wanted to wait for paperwork. Pt said she was not and would be going home [facility] Pt left ER ambulatory, no signs of distress. [facility] Linda Alcaraz RN [facility] 2023-02-10 15:05:54 Formatting of this n ote might be different from the original. Pt c/o chest pain. Dr. Posey notified. EKG completed and turned into him. [facility] 2023-02-10 13:01:51 Formatting of this n ote might be different from the original. Harlan Ayala is a 17 year old female c/o n/v x 3 and "fishy" taste in mouth, denies other symptoms Rocio Rowe RN [facility] - Health 2023-02-10 12:56:00 Formatting of this n ote is different from the original. [facility] Emergency Department Note Demographics Patient Name: Harlan Ayala Date of : 2005 17 year old Treatment Room: [place] [address] Primary Care Physician: Kristopher Miramontes [facility] Patient Escorted by: Self [9] Mode of Arrival: Personal means [1] EMS Treatment Prior to ED Arrival: BED PLACEMENT COORDINATOR treatment: None ED Events Date/Time Event User [...] 0.00 - 0.10 10*3/uL COMP. METABOLIC PANEL (50037) - Abnormal NA 140 135 - 145 [...] No evidence of ovarian torsion. RL: 4231 [facility]: 05784 End of Report ABDOMEN PELVIS W CONTRAST [...] TORSION CBC WITH DIFF COMP. METABOLIC PANEL (24347) URINALYSIS URINE DRUG (IMMUNOASSAY) - COMPREHENSIVE DRUG [...] file Luis Carlos Posey MD, FACEP, FAAEM [facility] #[id number] Luis Carlos Posey MD 02/10/23 1815 [facility] 2023-01-15 04:34:04 Formatting of this n ote [...] to follow up with pcp and or [facility] Advised to seek medical attention for new/prolonged/worsening of symptoms, Symptoms improved No adverse reaction to meds given in ER noted upon discharge PIV d'cd, dressing to site, catheter in tact. Awake, alert oriented, resp reg unlabored, skin w/d, pt leaving amb with steady gait, in no apparent distress, Lianet Lora RN [facility] 2023-01-15 01:12:07 Formatting of this n ote might be different from the original. Gave report MONIKA Lora. Juanita Yates RN [facility] 2023-01-14 23:10:59 Formatting of this n ote [...] smoked marijuana this morning. Tawanna Vicente RN [facility] 2023-01-14 23:02:00 Formatting of this n ote is different from the original. [facility] Emergency Department Note Patient Name: Harlan Ayala Date of : 2005 17 year old female Treatment Room: [place] [address] Primary Care Physician: Kristopher Miramontes Patient Escorted by: Family [5] Mode of Arrival: Personal means [1] EMS Treatment Prior to ED Arrival: BED PLACEMENT COORDINATOR treatment: None Travel and Exposure Screening: Symptoms [...] SQ EPITH 5 HPF COMP. METABOLIC PANEL (01848) NA 143 135 - 145 mmol/L K [...] TORSION CBC WITH DIFF COMP. METABOLIC PANEL (49918) URINALYSIS Orders Placed This Encounter Medications ketorolac [...] or significant free fluid. RL: 460 AFC: 52725 Course as of 01/15/23414Jan 15, 2023 0406 [...] on file 2. Contact information for follow-up [facility] Specialty: Obstetrics & Gynecology [address] [place] [address], [address] [facility] [address] Instructions: As needed Kristopher Miramontes Specialty: IM-INTERNAL MEDICINE Relationship: PCP - [place] [id number] Instructions: As needed 3. macrobid for UTI 4. Return to ER if symptoms should worsen or fail to improve within 72 hours. Follow up with primary care provider within 48-72 hours. Take all medications as prescribed. Stay adequately hydrated. Joy Andrews M.D., FACEP Emergency Medicine [facility] 2023-01-14 13:38:14 Formatting of this n ote [...] noted. Accompanied by mother. Lauren Aguayo RN [facility] 2023-01-14 11:42:27 Formatting of this n ote might be different from the original. Harlan Ayala is a 17 year old female c/o abdominal pain since yesterday, n/v x2, states seen in ER yesterday for same, did not get meds filled from pharmacy Rocio Rowe RN [facility] 2023-01-13 19:08:07 Formatting of this n ote [...] in no apparent distress. Rocio Jones RN [facility] 2023-01-13 14:43:24 Formatting of this n ote might be different from the original. Patient asking for water, informed patient that since she is vomiting she cannot have water. Dianne Chatterjee RN [facility] 2023-01-13 14:32:19 Formatting of this n ote might be different from the original. Pt arrived via private car with c/o abd pain and vomiting that started last night. States used her inhaler last night. Shania Farah RN [facility]
[2024-10-15] MEDS ORDERED: ACETAMINOPHEN 500 MG TAB ONE (07:30)
[2024-10-15] MEDS ORDERED: ONDANSETRON 4 MG (ODT) TAB ONE (07:33)
--- NOTE | 2024-10-15 08:10 | ER ---
Nurse's Notes [facility] Name: Arianna Ayala Age: 19 yrs Sex: Female : 2005 Arrival Date: 10/15/2024 Time: 07:07 Bed 7 Private MD: Diagnosis: Chest pain, marijuana usage Presentation: 10/15 07:19 Chief complaint: Patient states: she started having chest pain this morning, with pain ap3 that she rates a 10/10 on the pain scale. patient also reports nausea and vomiting X's 1. patient reports that her hands and feet are going numb. Coronavirus screen: At this time, the client does not indicate any symptoms associated with coronavirus-19. Ebola Screen: No symptoms or risks identified at this time. Initial Sepsis Screen: Does the patient meet any 2 criteria? No. Patient's initial sepsis screen is negative. Does the patient have a suspected source of infection? No. Patient's initial sepsis screen is negative. Risk Assessment: Do you want to hurt yourself or someone else? Patient reports no desire to harm self or others. Onset of symptoms was October 15, 2024. Transition of care: patient was not received from another setting of care. 07:19 Method Of Arrival: Wheelchair ap3 07:19 Acuity: DAVE 3 ap3 Triage Assessment: : General: Appears uncomfortable, Behavior is anxious, restless. Pain: Complains of pain ap3 in chest Pain currently is 10 out of 10 on a pain scale. Neuro: Level of Consciousness is awake, alert, obeys commands, Oriented to person, place, time, situation, Appropriate for age Speech is normal. Cardiovascular: Reports chest pain. Respiratory: Airway is patent Respiratory effort is even, unlabored, Respiratory pattern is regular, symmetrical. GI: Reports nausea, vomiting. 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 - Infectious Disease History:: Denies. - Social history:: Smoking status: Patient reports the use of cigarette tobacco products, denies chronic smoking, but will smoke occasionally. Screenin:23 [facility] ED Fall Risk Assessment (Adult) History of falling in the last 3 months, ph including since admission No falls in past 3 months (0 pts) Confusion or Disorientation No (0 pts) Intoxicated or Sedated No (0 pts) Impaired Gait No (0 pts) Mobility Assist Device Used No (0 pt) Altered Elimination No (0 pt) Score/Fall Risk Level 0 - 2 = Low Risk Oriented to surroundings, Maintained a safe environment, Hourly rounding (assess needs \T\ fall precautionary measures) done. Abuse screen: Denies threats or abuse. Denies injuries from another. Nutritional screening: No deficits noted. Tuberculosis screening: No symptoms or risk factors identified. Assessment: 07:34 General: Appears in no apparent distress. uncomfortable, Behavior is cooperative, ph anxious. Pain: Complains of pain in chest Pain does not radiate. Pain began this morning. Neuro: Level of Consciousness is awake, alert, obeys commands, Oriented to person, place, time, situation. Neuro: Reports numbness in face, right hand, left hand, right foot and left foot. Cardiovascular: Reports chest pain, nausea, vomiting. Respiratory: Airway is patent Respiratory effort is labored, Respiratory pattern is tachypnea. GI: Reports nausea, vomiting. Derm: Skin is pink, warm \T\ dry. Musculoskeletal: Circulation, motion, and sensation intact. Range of motion: intact in all extremities. 08:03 Reassessment: Patient appears in no apparent distress at this time. Patient and/or iw family updated on plan of care and expected duration. Pain level reassessed. Patient is alert, oriented x 3, equal unlabored respirations, skin warm/dry/pink. pt appears less anxious, mother at bedside. Vital Signs: 07:19 BP 149 / 95; Pulse 69; Resp 23; Temp 97.7(O); Pulse Ox 100% on R/A; Weight 54.43 kg; ap3 Pain 10/10; 08:03 BP 134 / 83; Pulse 81; Resp 19; Pulse Ox 100% on R/A; iw 07:19 Pain Scale: Adult ap3 ED Course: 07:09 Patient arrived in ED. al6 07:19 Joe Lucero MD is Attending Physician. sp3 07:21 Mirian Justin RN is Primary Nurse. ph 07:22 Triage completed. ap3 07:23 Arm band placed on Patient placed in an exam room, on a stretcher. ph 07:24 Patient has correct armband on for positive identification. Bed in low position. Call ph light in reach. Side rails up X 1. quality assurance monitor body on. Pulse ox on. NIBP on. 07:24 Patient maintains SpO2 saturation greater than 95% on room air. ph 07:34 Initial lab(s) drawn, by me, sent to lab. EKG done, by ED staff, reviewed by Joe Lucero MD. Inserted saline lock: 20 gauge in right antecubital area, using aseptic technique. Blood collected. Flushed with 10 mL NS. 07:36 Potassium Sent. ph 08:19 Provided Education on: . iw 08:20 No provider procedures requiring assistance completed. IV discontinued, intact, iw bleeding controlled, No redness/swelling at site. Pressure dressing applied. Administered Medications: 07:35 Drug: Ondansetron Oral Disintegrating Tablet Oral Disintegrating Tablet 4 mg PO once iw Route: PO; 08:00 Follow up: Response: No adverse reaction ph 08:00 Drug: Acetaminophen PO 1000 mg PO once Route: PO; iw 08:15 Follow up: Response: No adverse reaction ph Medication: 07:24 VIS not applicable for this client. ph Outcome: 08:09 Discharge ordered by sp3 08:20 Discharged to home ambulatory, with family, iw 08:20 Condition: good 08:20 Discharge instructions given to patient, family, Instructed on discharge instructions, follow up and referral plans. Demonstrated understanding of instructions, follow-up care, 08:20 Patient left the ED. iw Signatures: Lynette Waldron RN RN Mirian Justin RN RN Veronica Rice RN RN ap3 Joe Lucero MD MD sp3 Shanna Morales6
--- NOTE | 2024-10-15 08:10 | EDPHYS ---
Physician Documentation [facility] Name: Arianna Ayala Age: 19 yrs Sex: Female : 2005 Arrival Date: 10/15/2024 Time: 07:07 Bed 7 Private MD: ED Physician Joe Lucero HPI: 10/15 07:27 This 19 yrs old Female presents to ER via Wheelchair with complaints of Chest Pain, sp3 Numbness. 07:27 19-year-old female with history of asthma presents with chest pain similar to the sp3 symptoms she was having yesterday. She was seen in the ED here yesterday where she had negative full workup including EKG, chest x-ray and labs with the only lab abnormality being potassium of 3.1. It was replaced at that time. Patient endorses marijuana usage but states that "I do not think it is that". She denies headache, fever, neck pain, shortness of breath, abdominal pain, nausea, vomiting, diarrhea, syncope, rash, trauma, known sick contacts, prolonged immobilization, travel history, prior history of DVT or PE, IV drug use, or any other signs or symptoms on ROS at this time.. 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 - Infectious Disease History:: Denies. - Social history:: Smoking status: Patient reports the use of cigarette tobacco products, denies chronic smoking, but will smoke occasionally. ROS: 07:29 Constitutional: Negative for fever, chills, and weight loss, Eyes: Negative for injury, sp3 pain, redness, and discharge, ENT: Negative for injury, pain, and discharge, Neck: Negative for injury, pain, and swelling, Respiratory: Negative for shortness of breath, cough, wheezing, and pleuritic chest pain, Abdomen/GI: Negative for abdominal pain, nausea, vomiting, diarrhea, and constipation, Back: Negative for injury and pain, MS/Extremity: Negative for injury and deformity, Skin: Negative for injury, rash, and discoloration, Neuro: Negative for headache, weakness, numbness, tingling, and seizure, Psych: Negative for depression, anxiety, suicide ideation, homicidal ideation, and hallucinations, Allergy/Immunology: Negative for hives, rash, and allergies, Endocrine: Negative for neck swelling, polydipsia, polyuria, polyphagia, and marked weight changes, Hematologic/Lymphatic: Negative for swollen nodes, abnormal bleeding, and unusual bruising, 07:29 All other systems are negative, Exam: 07:29 Constitutional: This is a well developed, well nourished patient who is awake, alert, sp3 and in no acute distress. Head/Face: Normocephalic, atraumatic. Eyes: Pupils equal round and reactive to light, extra-ocular motions intact. Lids and lashes normal. Conjunctiva and sclera are non-icteric and not injected. Cornea within normal limits. Periorbital areas with no swelling, redness, or edema. ENT: Nares patent. No nasal discharge, no septal abnormalities noted. External auditory canals are clear. Oropharynx with no redness, swelling, or masses, exudates, or evidence of obstruction, uvula midline. Mucous membranes moist. Neck: Trachea midline, no thyromegaly or masses palpated, and no cervical lymphadenopathy. Supple, full range of motion without nuchal rigidity, or vertebral point tenderness. No Meningismus. Chest/axilla: Normal chest wall appearance and motion. Nontender with no deformity. No lesions are appreciated. Cardiovascular: Regular rate and rhythm with a normal S1 and S2. No gallops, murmurs, or rubs. Normal PMI, no JVD. No pulse deficits. Respiratory: Lungs have equal breath sounds bilaterally, clear to auscultation and percussion. No rales, rhonchi or wheezes noted. No increased work of breathing, no retractions or nasal flaring. Abdomen/GI: Soft, non-tender, with normal bowel sounds. No distension or tympany. No guarding or rebound. No evidence of tenderness throughout. Back: No spinal tenderness. No costovertebral tenderness. Full range of motion. Skin: Warm, dry with normal turgor. Normal color with no rashes, no lesions, and no evidence of cellulitis. MS/ Extremity: Pulses equal, no cyanosis. Neurovascular intact. Full, normal range of motion. Neuro: Awake and alert, GCS 15, oriented to person, place, time, and situation. Cranial nerves II-XII grossly intact. Motor strength 5/5 in all extremities. Sensory grossly intact. Cerebellar exam normal. Normal gait. Psych: Awake, alert, with orientation to person, place and time. Behavior, mood, and affect are within normal limits. 07:29 ECG was reviewed by the Attending Physician. EKG demonstrates normal sinus rhythm at 60 bpm with normal intervals, normal QRS, normal axis and normal ST/T-segment's without evidence of acute ischemia. Vital Signs: 07:19 BP 149 / 95; Pulse 69; Resp 23; Temp 97.7(O); Pulse Ox 100% on R/A; Weight 54.43 kg; ap3 Pain 10/10; 08:03 BP 134 / 83; Pulse 81; Resp 19; Pulse Ox 100% on R/A; iw 07:19 Pain Scale: Adult ap3 MDM: 07:19 Medical Screening Exam initiated sp3 07:30 Data reviewed: vital signs, nurses notes, old medical records, Reviewed old EKG, chest sp3 x-ray and all labs from yesterday. lab test result(s), EKG. ED course: 19-year-old female with recurrent chest pain. Patient has extensive odor of marijuana and smoke. She has clearly been exposed or has been smoking a substance that has marijuana in it. Unknown what other substance may or may not be present. Vital signs are currently normal. And once patient's anxiety is calm down her pain seems to improved. We will recheck the potassium which was low yesterday. Repeat EKG is unchanged. Yesterday's chest x-ray reviewed which is completely normal. Tylenol for pain control. I have counseled patient on smoking and/or vaping and marijuana usage. Demential diagnosis includes marijuana induced chest pain, musculoskeletal pain, pleurisy, among others. Clinically have ruled out acute coronary syndrome, PE, TAD or any other critical process at this time.. 08:08 ED course: Potassium today is normal. We will discharge patient home at this time.. sp3 10/15 07:26 Order name: Potassium; Complete Time: 08:08 sp3 10/15 07:26 Order name: EKG; Complete Time: 07:26 sp3 10/15 07:26 Order name: EKG - Nurse/Tech; Complete Time: 07:28 sp3 Administered Medications: 07:35 Drug: Ondansetron Oral Disintegrating Tablet Oral Disintegrating Tablet 4 mg PO once iw Route: PO; 08:00 Follow up: Response: No adverse reaction ph 08:00 Drug: Acetaminophen PO 1000 mg PO once Route: PO; iw 08:15 Follow up: Response: No adverse reaction ph Disposition Summary: 10/15/24 08:09 Discharge Ordered Notes: Location: Home sp3 Condition: Stable sp3 Diagnosis - Chest pain, marijuana usage sp3 Followup: sp3 - With: Private Physician - When: Upon discharge from the Emergency Department - Reason: Continuance of care Discharge Instructions: - Discharge Summary Sheet sp3 - Nonspecific Chest Pain, Adult sp3 - Preventing Marijuana Misuse sp3 Forms: - Medication Reconciliation Form sp3 - Antibiotic Education sp3 - Prescription Opioid Use sp3 - Patient Portal Instructions sp3 - Leadership Thank You Letter sp3 Signatures: Dispatcher [employer] EDMS Lynette Waldron RN RN iw Veronica Rice RN RN ap3 Joe Lucero MD MD sp3 Mirian Justin RN ph Corrections: (The following items were deleted from the chart) 07:32 07:30 ED course: 19-year-old female with recurrent chest pain. Patient has extensive sp3 odor of marijuana and smoke. She has clearly been exposed or has been smoking a substance that has marijuana in it. Unknown what other substance may or may not be present. Vital signs are currently normal. And once patient's anxiety is calm down her pain seems to improved. We will recheck the potassium which was low yesterday. Repeat EKG is unchanged. Yesterday's chest x-ray reviewed which is completely normal. Tylenol for pain control. I have counseled patient on smoking and/or vaping and marijuana usage.. sp3
[2024-10-15 08:46] VITALS: TEMP 97.7; O2SAT 100
[2024-10-15 08:48] VITALS: BP 134/83
--- NOTE | 2024-10-20 12:39 | EKG ---
Test Date: 2024-10-15 Test Time: 07:26:09 Plaque Maker: DAGO MEASUREMENT RESULTS: Intervals: Rate: 60 MS: 90 QRSD: 74 QT: 410 QTc: 410 [place]: P: 82 MS: 90 QRS: 72 T: 64 INTERPRETIVE STATEMENTS: Sinus rhythm with sinus arrhythmia with short MS Septal infarct, age undetermined Abnormal ECG Compared to ECG 10/13/2024 22:52:27 Short MS interval now present Myocardial infarct finding now present Atrial premature complex(es) no longer present Electronically Signed On 10-20-24 12:29:01 CDT by Enio Valenzuela
== END 2024-10-15 08:20 | disposition home or self-care (01) ==
LOC: ER 07:07
DX: R07.9 Chest pain, unspecified (principal); F12.90 Cannabis use, unspecified, uncomplicated; F17.210 Nicotine dependence, cigarettes, uncomplicated
CPT/HCPCS: 36415; 84132; 93005; 99284; Q0162

== ENCOUNTER 2024-10-15 12:48 | Emergency (ER) | payer SELFPAY ==
--- OUTSIDE RECORDS SUMMARY | 2024-10-15 12:53 | XMS REPORT | Continuity of Care Document ---
Author Name Unknown Address [address] [facility] [address] [place] [address] [facility] Address [address] [facility] [place] [address] Care Team Providers Care Steward/Stewardess Room Name Role Phone KRISTOPHER MIRAMONTES Primary Care Physician Unavailab JANUARY Kumar Attending Clinician Unavailable JANUARY BOO Attending Clinician Unavailable January Boo MD Attending Clinician [phone] MARYLOU AMAYA Attending Clinician Unavailab MARYLOU Linda Attending Clinician Unavailab Marylou Linda DO Attending Clinician [phone] MARCOS DODD Attending Clinician Unavailable MARCOS DODD Attending Clinician Unavailable AKASH BERNAL Attending Clinician Unavailable Akash Bernal NP Attending Clinician [phone] Luis Carlos Posey MD Attending Clinician [phone] LUIS CARLOS POSEY Attending Clinician Unavailable JOY ANDREWS Attending Clinician UnavailIshmael Desouza Attending Clinician [phone] Joy Andrews MD Attending Clinician [phone] SAAD WATTS Attending Clinician Unavailable Saad Nance Attending Clinician [phone] Ishmael DOMÍNGUEZ Attending Clinician Unavailable LUIS CARLOS POSEY Admitting Clinician Unavailable Ishmael DOMÍNGUEZ Admitting Clinician Unavailable SAAD WATTS Admitting Clinician Unavailable Payers Payer Name Policy Type Policy Number Effective Date Expirati on Date Source [facility] [id number] 2022 00:00:00 Allergies, Adverse Reactions, Alerts Allergy Name Allergy Type Status Severity Reaction(s) Onset Date Inactive Date Treating Clinician Comments Source NO KNOWN ALLERGIE S Drug Class Active [facility] Social History Social Habit Start Date Stop Date Quantity Comments Source Gender identity [facility] Exposure to SARS-CoV-2 (event) 2022-10-01 00:00:00 2022-10-11 10:02:00 Not sure [facility] Sex assigned at 2005 00:00:00 2005 00:00:00 [facility] Smoking Status Start Date Stop Date Source Tobacco smoking consumption unknown [facility] Medications Ordered Medication Name Filled Medication Name Start Date Stop Date Current Medication? Ordering Clinician Indication Dosage Frequency Signature (SIG) Comments Components Source ondansetron 4 mg disintegrat ing tablet 09-08 00:00: 00 Yes [id number] 4mg Take 1 tablet by mouth every 4 (four) hours as needed for Nausea and Vomiting (N/V). [facility] dicyclomine 20 mg tablet 09-08 00:00: 00 Yes [id number] 20mg Take 1 tablet by mouth 4 (four) times daily. [facility] naproxen 500 mg tablet 09-08 00:00: 00 09-19 04:59 :00 Yes [id number] 500mg Take 1 tablet by mouth in the morning and 1 tablet in the evening. Take with meals. Do all this for 10 days. [facility] ondansetron (ZOFRAN-ODT ) disintegrat ing tablet 4 mg 09-06 14:00: 00 09-06 13:03 :00 No 4mg 4 mg, Oral, ONCE, 1 dose, On 09/06/24 at 0900, Routine [facility] NaCl 0.9% (NS) IV infusion 1,000 mL 2022-05 16:45: 00 03-10 17:16 :00 No 1000mL at 999 mL/hr, Intravenou s, ONCE, 1 dose, On 03/10/23 at 1145, Routine [facility] dicyclomine (BENTYL) injection 20 mg 2022-05 015 15:00: 00 03-10 14:58 :00 No 20mg 20 mg, Intramuscu lar, ONCE NOW, 1 dose, On Sat03/10/23 at 1000, Routine [facility] NaCl 0.9% (NS) bolus infusion 1,000 mL 2022-05 15:00: 00 03-10 16:10 :00 No 1000mL at 999 mL/hr, 1,000 mL, IV Infusion, ONCE, 1 dose, On Sat03/10/23 at 1000, [facility] iopamidol (ISOVUE 370-500 mL) injection 45 mL 02-10 20:48: 00 02-10 20:48 :00 No [id number] 45mL 45 mL, Intravenou s, ONCE, 1 dose, On Sat02/10/23 at 1600, Routine [facility] NaCl 0.9% (NS) bolus infusion 1,000 mL 02-10 19:30: 00 02-10 19:51 :00 No 1000mL at 999 mL/hr, 1,000 mL, IV Infusion, ONCE, 1 dose, On Sat02/10/23 at 1430, [facility] ondansetron (ZOFRAN (PF)) injection 4 mg 02-10 19:15: 00 02-10 19:06 :00 No 4mg 4 mg, Slow IV Push, ONCE, 1 dose, On Sat02/10/23 at 1415, [facility] ondansetron 4 mg disintegrat ing tablet 02-10 00:00: 00 09-08 00:00 :00 No [id number] 4mg Take 1 tablet by mouth every 8 (eight) hours as needed for Nausea and Vomiting (N/V). [facility] NaCl 0.9% (NS) bolus infusion 1,000 mL 01-15 06:30: 00 01-15 07:30 :00 No 1000mL at 999 mL/hr, 1,000 mL, IV Infusion, ONCE, 1 dose, On Sat01/15/23 at 0130, STAT [facility] ketorolac (TORADOL) injection 15 mg 01-15 06:30: 00 01-15 05:45 :00 No 15mg 15 mg, Slow IV Push, ONCE, 1 dose, On Sat01/15/23 at 0130, JUAN JOSE [facility] Nitrofurant oin&Nit. Macrocryst 100 mg capsule 01-15 00:00: 00 01-21 04:59 :00 No [id number] 100mg Take 1 capsule by mouth in the morning and 1 capsule in the evening. Do all this for 5 days. [facility] dicyclomine 20 mg tablet 01-14 00:00: 00 09-08 00:00 :00 No [id number] 20mg Take 1 tablet by mouth 4 (four) times daily as needed for Abdominal pain. [facility] iopamidol (ISOVUE 300-500 mL) injection 75 mL 01-13 22:15: 00 01-13 22:15 :00 No [id number] 75mL 75 mL, Intravenou s, ONCE, 1 dose, On Sat01/13/23 at 1715, Routine [facility] NaCl 0.9% (NS) bolus infusion 1,000 mL 01-13 21:30: 00 01-13 23:16 :00 No 1000mL at 999 mL/hr, 1,000 mL, IV Infusion, ONCE, 1 dose, On Sat01/13/23 at 1630, STAT [facility] proMETHazin e (PHENERGAN) 25 mg in NaCl 0.9% (NS) 50 mL IV piggyback 01-13 20:30: 00 01-13 20:48 :00 No 25mg 25 mg, IV Piggyback, ONCE, 1 dose, On Sat01/13/23 at 1530, JUAN JOSE [facility] proMETHazin e 25 mg tablet 01-13 00:00: 00 Yes [id number] 25mg Take 1 tablet by mouth every 6 (six) hours as needed for Nausea and Vomiting (N/V). [facility] iopamidol (ISOVUE 370-500 mL) injection 100 mL 11-18 04:15: 00 11-18 04:15 :00 No [id number] 100mL 100 mL, Intravenou s, ONCE, 1 dose, On 11/17/22 at 2315, Routine [facility] ketorolac (TORADOL) injection 15 mg 11-18 03:15: 00 11-18 02:20 :00 No 15mg 15 mg, Slow IV Push, ONCE, 1 dose, On 11/17/22 at 2215, JUAN JOSE [facility] morpHINE (2 mg/mL) injection 4 mg 11-18 02:00: 00 11-18 02:00 :00 No 4mg 4 mg, Slow IV Push, ONCE, 1 dose, On 11/17/22 at 2100, STAT [facility] NaCl 0.9% (NS) bolus infusion 1,000 mL 11-18 01:45: 00 11-18 02:18 :00 No 1000mL at 999 mL/hr, 1,000 mL, IV Infusion, ONCE, 1 dose, On 11/17/22 at 204, STAT [facility] ondansetron (ZOFRAN (PF)) injection 4 mg 11-18 01:45: 00 11-18 00:53 :00 No 4mg 4 mg, Slow IV Push, ONCE, 1 dose, On 11/17/22 at 2045, JUAN JOSE [facility] ondansetron 4 mg disintegrat ing tablet 11-17 00:00: 00 02-10 00:00 :00 No [id number] 4mg Take 1 tablet by mouth every 8 (eight) hours as needed for Nausea and Vomiting (N/V). [facility] ketorolac (TORADOL) injection 15 mg 18 16:45: 00 10-11 15:52 :00 No 15mg 15 mg, Slow IV Push, ONCE, 1 dose, On Evelina 10/11/22 at 1145, [facility] NaCl 0.9% (NS) bolus infusion 1,000 mL 10-11 16:45: 00 10-11 16:12 :00 No 1000mL at 999 mL/hr, 1,000 mL, IV Infusion, ONCE, 1 dose, On Evelina 10/11/22 at 1145, [facility] ondansetron (ZOFRAN-ODT ) disintegrat ing tablet 4 mg 10-11 16:15: 00 10-11 15:17 :00 No 4mg 4 mg, Oral, ONCE, 1 dose, On Evelina 10/11/22 at 1115, Routine [facility] haloperidol lactate (HALDOL) injection 2.5 mg 10-11 15:45: 00 10-11 15:53 :00 No 2.5mg 2.5 mg, Intravenou s, ONCE, 1 dose, On Evelina 10/11/22 at 1045, [facility] haloperidol lactate (HALDOL) injection 2.5 mg 07-27 05:45: 00 07-27 05:38 :00 No 2.5mg 2.5 mg, Intravenou s, ONCE, 1 dose, On Evelina 07/26/22 at 2345, [facility] metoclopram yeimi HCl (REGLAN) injection 10 mg 07-27 05:45: 00 07-27 05:38 :00 No 10mg 10 mg, Slow IV Push, ONCE, 1 dose, On Evelina 07/26/22 at 2345, [facility] NaCl 0.9% (NS) bolus infusion 1,000 mL 07-27 05:30: 00 07-27 07:07 :00 No 1000mL at 999 mL/hr, 1,000 mL, IV Infusion, ONCE, 1 dose, On Evelina 07/26/22 at 2330, [facility] ondansetron (ZOFRAN (PF)) injection 4 mg 2023-0 3-03 05:00: 00 07-27 05:00 :00 No 4mg 4 mg, Slow IV Push, ONCE, 1 dose, On Evelina 07/26/22 at 2300, JUAN JOSE [facility] Vital Signs Vital Name Observation Time Observation Value Comments S judy Systolic blood pressure 2024-09-08 12:55:00 122 mm[Hg] [facility] Diastolic blood pressure 2024-09-08 12:55:00 76 mm[Hg] [facility] Heart rate 2024-09-08 12:55:00 56 /min Unive [facility] Body temperature 2024-09-08 12:55:00 36.39 Ronna [facility] Respiratory rate 2024-09-08 12:55:00 16 /min [facility] Body height 2024-09-08 12:55:00 175.3 cm Univ [facility] Body weight 2024-09-08 12:55:00 52.164 kg [facility] BMI 2024-09-08 12:55:00 16.98 kg/m2 [facility] Oxygen saturation in Arterial blood by Pulse oximetry 2024-09-08 12:55:00 98 /min [facility] Systolic blood pressure 2024-09-06 12:59:00 140 mm[Hg] [facility] Diastolic blood pressure 2024-09-06 12:59:00 78 mm[Hg] [facility] Heart rate 2024-09-06 12:59:00 72 /min Unive [facility] Body temperature 2024-09-06 12:59:00 36.5 Ronna [facility] Respiratory rate 2024-09-06 12:59:00 16 /min [facility] Oxygen saturation in Arterial blood by Pulse oximetry 2024-09-06 12:59:00 100 /min [facility] Systolic blood pressure 2023-03-10 17:00:00 100 mm[Hg] [facility] Diastolic blood pressure 2023-03-10 17:00:00 72 mm[Hg] [facility] Heart rate 2023-03-10 17:00:00 60 /min Unive [facility] Body temperature 2023-03-10 17:00:00 37.5 Ronna [facility] Respiratory rate 2023-03-10 17:00:00 18 /min [facility] Oxygen saturation in Arterial blood by Pulse oximetry 2023-03-10 17:00:00 99 /min [facility] Body height 2023-03-10 13:25:00 170.2 cm [facility] Body weight 2023-03-10 13:25:00 52.164 kg [facility] BMI 2023-03-10 13:25:00 18.01 kg/m2 [facility] Body mass index (BMI) [Percentile] Per age and sex 2023-03-10 13:25:00 7.10 % [facility] Systolic blood pressure 2023-02-10 20:00:00 142 mm[Hg] [facility] Diastolic blood pressure 2023-02-10 20:00:00 96 mm[Hg] [facility] Heart rate 2023-02-10 20:00:00 94 /min [facility] Respiratory rate 2023-02-10 20:00:00 19 /min [facility] Oxygen saturation in Arterial blood by Pulse oximetry 2023-02-10 20:00:00 99 /min [facility] Body temperature 2023-02-10 18:00:00 36.94 Ronna [facility] Body height 2023-02-10 18:00:00 175.3 cm [facility] Body weight 2023-02-10 18:00:00 54.341 kg [facility] BMI 2023-02-10 18:00:00 17.69 kg/m2 [facility] Body mass index (BMI) [Percentile] Per age and sex 2023-02-10 18:00:00 4.99 % [facility] Systolic blood pressure 2023-01-15 09:00:00 105 mm[Hg] [facility] Diastolic blood pressure 2023-01-15 09:00:00 60 mm[Hg] [facility] Heart rate 2023-01-15 09:00:00 52 /min Un[facility] Respiratory rate 2023-01-15 09:00:00 22 /min [facility] Oxygen saturation in Arterial blood by Pulse oximetry 2023-01-15 09:00:00 99 /min [facility] Body temperature 2023-01-15 04:14:00 37.28 Ronna [facility] Body height 2023-01-15 04:14:00 175.3 cm [facility] Body weight 2023-01-15 04:14:00 52.799 kg [facility] BMI 2023-01-15 04:14:00 17.19 kg/m2 [facility] Body mass index (BMI) [Percentile] Per age and sex 2023-01-15 04:14:00 2.55 % [facility] Systolic blood pressure 2023-01-14 16:45:00 123 mm[Hg] [facility] Diastolic blood pressure 2023-01-14 16:45:00 73 mm[Hg] [facility] Heart rate 2023-01-14 16:45:00 57 /min [facility] Body temperature 2023-01-14 16:45:00 37.33 Ronna [facility] Respiratory rate 2023-01-14 16:45:00 14 /min [facility] Body height 2023-01-14 16:45:00 175.3 cm [facility] Body weight 2023-01-14 16:45:00 58.968 kg [facility] BMI 2023-01-14 16:45:00 19.20 kg/m2 [facility] Body mass index (BMI) [Percentile] Per age and sex 2023-01-14 16:45:00 19.85 % [facility] Oxygen saturation in Arterial blood by Pulse oximetry 2023-01-14 16:45:00 99 /min [facility] Systolic blood pressure 2023-01-14 00:00:00 114 mm[Hg] [facility] Diastolic blood pressure 2023-01-14 00:00:00 67 mm[Hg] [facility] Heart rate 2023-01-14 00:00:00 57 /min Unive [facility] Respiratory rate 2023-01-14 00:00:00 16 /min [facility] Oxygen saturation in Arterial blood by Pulse oximetry 2023-01-14 00:00:00 98 /min [facility] Body temperature 2023-01-13 19:34:00 36.5 Ronna [facility] Body height 2023-01-13 19:34:00 175.3 cm [facility] Body weight 2023-01-13 19:34:00 58.968 kg [facility] BMI 2023-01-13 19:34:00 19.20 kg/m2 [facility] Body mass index (BMI) [Percentile] Per age and sex 2023-01-13 19:34:00 19.86 % [facility] Systolic blood pressure 2022-11-18 04:10:00 98 mm[Hg] [facility] Diastolic blood pressure 2022-11-18 04:10:00 61 mm[Hg] [facility] Heart rate 2022-11-18 04:10:00 71 /min Unive [facility] Body temperature 2022-11-18 04:10:00 37 Ronna [facility] Oxygen saturation in Arterial blood by Pulse oximetry 2022-11-18 04:10:00 97 /min [facility] Respiratory rate 2022-11-18 02:22:00 16 /min [facility] Body weight 2022-11-17 23:13:00 63.504 kg [facility] Systolic blood pressure 2022-10-11 16:12:00 133 mm[Hg] [facility] Diastolic blood pressure 2022-10-11 16:12:00 95 mm[Hg] [facility] Heart rate 2022-10-11 16:12:00 84 /min Unive [facility] Respiratory rate 2022-10-11 16:12:00 16 /min [facility] Oxygen saturation in Arterial blood by Pulse oximetry 2022-10-11 16:12:00 98 /min [facility] Body temperature 2022-10-11 15:05:00 37 Ronna [facility] Body height 2022-10-11 15:05:00 175.3 cm [facility] Body weight 2022-10-11 15:05:00 63.504 kg [facility] BMI 2022-10-11 15:05:00 20.67 kg/m2 [facility] Body mass index (BMI) [Percentile] Per age and sex 2022-10-11 15:05:00 40.96 % [facility] Systolic blood pressure 2022-07-27 07:00:00 110 mm[Hg] [facility] Diastolic blood pressure 2022-07-27 07:00:00 68 mm[Hg] [facility] Heart rate 2022-07-27 07:00:00 60 /min [facility] Body temperature 2022-07-27 07:00:00 37.28 Ronna [facility] Respiratory rate 2022-07-27 07:00:00 17 /min [facility] Oxygen saturation in Arterial blood by Pulse oximetry 2022-07-27 07:00:00 96 /min [facility] Body height 2022-07-27 04:37:00 175.3 cm [facility] Body weight 2022-07-27 04:37:00 56.337 kg [facility] BMI 2022-07-27 04:37:00 18.34 kg/m2 [facility] Body mass index (BMI) [Percentile] Per age and sex 2022-07-27 04:37:00 11.37 % [facility] Procedures Procedure Date / Time Performed Performing Clinician Source POCT TEST 2024-09-08 13:20:00 Oumou Boo [facility] URINALYSIS 2024-09-08 13:15:00 January Boo [facility] URINE DRUG (IMMUNOASSAY) - COMPREHENSIVE DRUG SCREEN W/O REFLEX 2024-09-08 13:15:00 January Boo [facility] FENTANYL (IMMUNOASSAY) 2024-09-08 13:15:00 Philip Boo [facility] HB ECG ROUTINE & RHYTHM STRIP 2023-03-10 15:10:56 Akash Bernal [facility] URINALYSIS 2023-03-10 14:53:00 Akash Bernal [facility] POCT TEST 2023-03-10 14:53:00 Akash Bernal [facility] URINE DRUG (IMMUNOASSAY) - COMPREHENSIVE DRUG SCREEN W/O REFLEX 2023-03-10 14:53:00 Akash Bernal [facility] AC ABG + LACTIC ACID 2023-03-10 14:36:00 Selina Bernal [facility] CREATINE KINASE 2023-03-10 14:25:00 [facility] 2023-03-10 14:25:00 Akash Bernal [facility] COMP. METABOLIC PANEL ([id number]) 2023-03-10 14:25:00 Akash Bernal [facility] CBC WITH DIFF 2023-03-10 14:25:00 Akash Bernal [facility] CONSENT/REFUSAL FOR DIAGNOSIS AND TREATMENT 2023-03-10 13:19:54 Doctor Unassigned, [place] [facility] US OVARY TORSION 2023-02-10 22:25:00 Luis Carlos Posey Un [facility] CT ABDOMEN PELVIS W CONTRAST 2023-02-10 20:53:59 Luis Carlos Posey [facility] URINE DRUG (IMMUNOASSAY) - COMPREHENSIVE DRUG SCREEN 2023-02-10 20:28:00 Luis Carlos Posey [facility] URINALYSIS 2023-02-10 20:28:00 Luis Carlos Posey [facility] TEST, SERUM 2023-02-10 19:51:00 Luis Carlos Posey [facility] COMP. METABOLIC PANEL ([id number]) 2023-02-10 18:57:00 Luis Carlos Posey [facility] CBC WITH DIFF 2023-02-10 18:57:00 Luis Carlos Posey [facility] CONSENT/REFUSAL FOR DIAGNOSIS AND TREATMENT 2023-02-10 17:57:28 Doctor Unassigned, [place] [facility] US OVARY TORSION 2023-01-15 08:49:25 Ishmael Domínguez U [facility] COMP. METABOLIC PANEL ([id number]) 2023-01-15 05:37:00 Ishmael Domínguez [facility] CBC WITH DIFF 2023-01-15 05:37:00 Ishmael Domínguez [facility] URINALYSIS 2023-01-15 05:37:00 Ishmael Domínguez [facility] CONSENT/REFUSAL FOR DIAGNOSIS AND TREATMENT 2023-01-15 04:02:38 Doctor Unassigned, [place] [facility] CONSENT/REFUSAL FOR DIAGNOSIS AND TREATMENT 2023-01-14 17:36:09 Doctor Unassigned, [place] [facility] CONSENT/REFUSAL FOR DIAGNOSIS AND TREATMENT 2023-01-14 16:41:53 Doctor Unassigned, [place] [facility] CT ABDOMEN PELVIS W CONTRAST 2023-01-13 21:22:33 Saad Watts [facility] URINALYSIS 2023-01-13 20:48:00 Saad Watts [facility] POCT TEST 2023-01-13 20:47:00 Saad Watts [facility] LIPASE 2023-01-13 20:39:00 Saad Watts [facility] COMP. METABOLIC PANEL ([id number]) 2023-01-13 20:39:00 Saad Watts [facility] CBC WITH DIFF 2023-01-13 20:39:00 Saad Watts [facility] CONSENT/REFUSAL FOR DIAGNOSIS AND TREATMENT 2023-01-13 19:21:26 Doctor Unassigned, [place] [facility] CT ABDOMEN PELVIS W CONTRAST 2022-11-18 03:17:05 Ishmael Domínguez [facility] XR CHEST 1 VW 2022-11-18 03:08:22 Ishmael Domínguez [facility] POCT TEST 2022-11-18 01:00:00 Ishmael Domínguez e [facility] MAGNESIUM 2022-11-18 00:47:00 Ishmael Domínguez [facility] COMP. METABOLIC PANEL ([id number]) 2022-11-18 00:47:00 Ishmael Domínguez [facility] CBC WITH DIFF 2022-11-18 00:47:00 Ishmael Domínguez [facility] URINALYSIS 2022-11-18 00:47:00 Ishmael Domínguez [facility] LIPASE 2022-11-18 00:47:00 Ishmael Domínguez [facility] CONSENT/REFUSAL FOR DIAGNOSIS AND TREATMENT 2022-11-17 23:10:12 Doctor Unassigned, [place] [facility] CBC WITH DIFF 2022-10-11 15:44:00 Ishmael Domínguez [facility] POCT TEST 2022-10-11 15:13:00 Ishmael Domínguez [facility] URINALYSIS 2022-10-11 15:12:00 Ishmael Domínguez [facility] CONSENT/REFUSAL FOR DIAGNOSIS AND TREATMENT 2022-10-11 14:57:40 Doctor Unassigned, [place] [facility] POCT TEST 2022-07-27 06:05:00 Esme Amaya ra [facility] URINALYSIS 2022-07-27 06:03:00 [facility]REATMENT 2022-07-27 04:23:13 Doctor Unassigned, [place] [facility] NOTICE OF PRIVACY PRACTICES 2022-07-27 04:22:45 Doctor Unassigned, [place] [facility] Encounters Start Date/Time End Date/Time Encounter Type Admission Type Attending [facility] Care Facility Care Department Encounter ID Source 2024-09-08 07:56:00 2024-09-08 09:28:00 Emergency X JANUARY BOO DONNELL [facility] ERT [id number] [facility] 2024-09-08 07:56:00 2024-09-08 09:28:00 Emergency January Boo [facility] [id number] [facility] 2024-09-06 08:00:00 2024-09-06 09:27:00 Emergency X MARYLOU AMAYA SANDRA [facility] ERT [id number] [facility] 2024-09-06 08:00:00 2024-09-06 09:27:00 Emergency Marylou Amaya [facility] [id number] [facility] 2024-08-06 12:50:00 2024-08-06 14:44:00 Emergency X MARCOS DODD ERICCA [facility] ERT [id number] [facility] 2023-03-10 08:26:00 2023-03-10 12:18:00 Emergency X AKASH BERNAL [facility] ERT [id number] [facility] 2023-03-10 08:26:00 2023-03-10 12:18:00 Emergency Akash Bernal [facility] [id number] [facility] 2023-02-10 13:02:00 2023-02-10 18:18:00 Emergency Luis Carlos Posey [facility] [id number] [facility] 2023-02-10 13:02:00 2023-02-10 18:18:00 Emergency X LUIS CARLOS POSEY [facility] ERT [id number] [facility] 2023-01-14 23:18:00 2023-01-15 04:40:00 Emergency X JOY ANDREWS [facility] ERT [id number] [facility] 2023-01-14 23:18:00 2023-01-15 04:40:00 Emergency SangIshmael LorenaJoy miles [facility] [id number] [facility] 2023-01-14 11:48:00 2023-01-14 13:39:00 Emergency X SAAD WATTS [facility] [facility] [id number] [facility] 2023-01-14 11:48:00 2023-01-14 13:39:00 Emergency Saad Watts [facility] 1.2.840.114 350.1.13.10 4.2.7.2.686 [id number] 084 [id number] [facility] 2023-01-13 14:37:00 2023-01-13 19:09:00 Emergency X SAAD WATTS [facility] ERT [id number] [facility] 2023-01-13 14:37:00 2023-01-13 19:09:00 Emergency Saad Watts [facility] 1.2.840.114 350.1.13.10 4.2.7.2.686 [id number] [id number] [facility] 2022-11-17 18:15:00 2022-11-17 23:22:00 Emergency X Ishmael DOMÍNGUEZ [facility] ERT [id number] [facility] 2022-11-17 18:15:00 2022-11-17 23:22:00 Emergency SangIshmael [facility] 1.2.840.114 350.1.13.10 4.2.7.2.686 [id number] 084 [id number] [facility] 2022-10-11 10:09:00 2022-10-11 11:41:00 Emergency X SANGIshmael [facility] ERT [id number] [facility] 2022-10-11 10:09:00 2022-10-11 11:41:00 Emergency Ishmael Domínguez [facility] 1.2.840.114 350.1.13.10 4.2.7.2.686 [id number] 084 [id number] [facility] 2022-07-26 22:43:00 2022-07-27 01:14:00 Emergency X MARYLOU AMAYA [facility] ERT [id number] [facility] 2022-07-26 22:43:00 2022-07-27 01:14:00 Emergency Marylou Amaya [facility] 1.2.840.114 350.1.13.10 4.2.7.2.686 [id number] 084 [id number] [facility] Results Test Description Test Time Test Comments Results Result Co mments Source [facility]OL[facility] ([id number])2023-03-10 14:57:13* Test Item Value Reference Range Interpretation Comme nts NA (test code = 6979498607) 141 mmol/L 135-145 K (test code = 0863127880) 3.5 mmol/L 3.5-5.0 CL (test code = 4648271699) 105 mmol/L 98-108 CO2 TOTAL (test code = 8399256455) 19 mmol/L 23-31 L AGAP (test code = 3998321208) 17 2-16 H BUN (test code = 0187565700) 10 mg/dL 7-23 GLUCOSE (test code = 1287663259) 160 mg/dL 70-110 H CREATININE (test code = 3099926010) 0.63 mg/dL 0.50-1.04 TOTAL BILI (test code = 2881839464) 0.5 mg/dL 0.1-1.1 CALCIUM (test code = 0952601960) 10.0 mg/dL 8.6-10.6 T PROTEIN (test code = 4879929262) 7.9 g/dL 6.3-8.2 ALBUMIN (test code = 2172408168) 4.7 g/dL 3.5-5.0 ALK PHOS (test code = 6300824824) 79 U/L 34-122 ALTv (test code = 1742-6) 19 U/L 5-35 AST(SGOT) (test code = 7959557168) 23 U/L 13-40 eGFR (test code = 3073991067) 123.1 mL/min/1.73m2 BREANNA (test code = BREANNA) [...] imaging tests). Lab Interpretation (test code = 12353-4) [facility] 14:56:53* Test Item Value Reference Range Interpretation Comme nts LIPASE (test code = 2208939979) 48 U/L 0-220 Lab Interpretation (test cod e = 65047-7) Normal [facility]wayCREATINE [id number] 14:56:53* Test Item Value Reference Range Interpretation Comme nts CK (test code = 3494512958) 58 U/L 33-194 Lab Interpretation (test cod e = 59001-2) Normal [facility] [id number] 14:53:00* Test Item Value Reference Range Interpretation Comme nts POCT PREG (test code = 1605) Negative On board controls acceptable with C Line (test code = 3574) Yes POCT PREG LOT # (test code = 3575) [id number] POCT PREG TEST DATE ( test code = 3576) 05/29/2024 Lab Interpretation (test cod e = 65269-5) Normal [facility] WITH [id number] 14:43:54* Test Item Value Reference Range Interpretation [...] 34.2 g/dL 32.0-36.0 RDW-SD (test code = 11558-1) 41.4 fL 38.5-49.0 RDW-CV (test code = 788-0) 11.8 % 11.5-14.0 PLT (test code = 777-3) 304 See_Comment [Automated message] The system which generated this result transmitted reference range: 135 - 361 10*3/?L. The reference range was not used to interpret this result as normal/abnormal. MPV (test code = 59757-3) 10.9 fL 9.4-13.3 NRBC/100 WBC (test code = 6810968350) 0.0 See_Comment [Automated message] The system which generated this result transmitted reference range: 0.0 - 10.0 /100 WBCs. The reference range was not used to interpret this result as normal/abnormal. NRBC x10^3 (test code = 3957155284) See_Comment [Automated message] The system which generated this result transmitted reference range: 10*3/?L. The reference range was not used to interpret this result as normal/abnormal. GRAN MAT (NEUT) % (test code = 770-8) 90.8 % IMM GRAN % (test code = 5381388660) 0.30 % LYMPH % (test code = 736-9) 5.3 % MONO % (test code = 5905-5) 3.3 % EOS % (test code = 713-8) 0.0 % BASO % (test code = 706-2) 0.3 % GRAN MAT x10^3(ANC) (test code = 3744261681) 13.38 10*3/uL 1.50-10.30 H IMM GRAN x10^3 (test code = 0373709162) 0.05 10*3/uL 0.00-0.06 LYMPH x10^3 (test code = 731-0) 0.78 10*3/uL 0.70-7.40 MONO x10^3 (test code = 742-7) 0.49 10*3/uL 0.00-0.50 EOS x10^3 (test code = 711-2) 0.00-0.40 BASO x10^3 (test code = 704-7) 0.04 10*3/uL 0.00-0.10 Lab Interpretation (test code = 50634-5) Abnormal [facility], [id number] 20:11:53* Test Item Value Reference Range Interpretation Comme nts PREG SERUM (test code = 7840355512) Negative BREANNA (test code = BREANNA) Less than 10 IU/L. ?If low titer or ectopic is suspected, resubmit specimen in 48-72 hours. [facility] MET[facility]OLIC PANEL (20160)2023-02-10 19:31:01* Test Item Value Reference Range Interpretation Comme nts NA (test code = 3003307238) 140 mmol/L 135-145 K (test code = 7032904518) 4.0 mmol/L 3.5-5.0 CL (test code = 3316282138) 111 mmol/L 98-108 H CO2 TOTAL (test code = 6343244004) 17 mmol/L 23-31 L AGAP (test code = 5680057833) 12 2-16 BUN (test code = 2159669476) 8 mg/dL 7-23 GLUCOSE (test code = 3878205315) 136 mg/dL 70-110 H CREATININE (test code = 5101007662) 0.70 mg/dL 0.50-1.04 TOTAL BILI (test code = 3768521269) 0.3 mg/dL 0.1-1.1 CALCIUM (test code = 3064570452) 9.8 mg/dL 8.6-10.6 T PROTEIN (test code = 0225691826) 8.0 g/dL 6.3-8.2 ALBUMIN (test code = 7642288777) 4.7 g/dL 3.5-5.0 ALK PHOS (test code = 1617837127) 92 U/L 34-122 ALTv (test code = 1742-6) 17 U/L 5-35 AST(SGOT) (test code = 7471555444) 26 U/L 13-40 eGFR (test code = 4111474840) 109.0 mL/min/1.73m2 BREANNA (test code = RBEANNA) Association of Glomerular Filtration Rate (GFR) and [...] imaging tests). Lab Interpretation (test code = 14267-9) Abnormal [facility] WITH [id number] 19:20:02* Test Item Value Reference Range Interpretation [...] 34.4 g/dL 32.0-36.0 RDW-SD (test code = 59706-8) 42.3 fL 38.5-49.0 RDW-CV (test code = 788-0) 12.0 % 11.5-14.0 PLT (test code = 777-3) 315 See_Comment [Automated message] The system which generated this result transmitted reference range: 135 - 361 10*3/?L. The reference range was not used to interpret this result as normal/abnormal. MPV (test code = 30119-7) 10.3 fL 9.4-13.3 NRBC/100 WBC (test code = 8962285142) 0.0 See_Comment [Automated message] The system which generated this result transmitted reference range: 0.0 - 10.0 /100 WBCs. The reference range was not used to interpret this result as normal/abnormal. NRBC x10^3 (test code = 3659295765) See_Comment [Automated message] The system which generated this result transmitted reference range: 10*3/?L. The reference range was not used to interpret this result as normal/abnormal. GRAN MAT (NEUT) % (test code = 770-8) 78.0 % IMM GRAN % (test code = 1172926681) 0.40 % LYMPH % (test code = 736-9) 14.7 % MONO % (test code = 5905-5) 6.4 % EOS % (test code = 713-8) 0.2 % BASO % (test code = 706-2) 0.3 % GRAN MAT x10^3(ANC) (test code = 5562352424) 10.50 10*3/uL 1.50-10.30 H IMM GRAN x10^3 (test code = 6199972210) 0.06 10*3/uL 0.00-0.06 LYMPH x10^3 (test code = 731-0) 1.98 10*3/uL 0.70-7.40 MONO x10^3 (test code = 742-7) 0.86 10*3/uL 0.00-0.50 H EOS x10^3 (test code = 711-2) 0.03 10*3/uL 0.00-0.40 BASO x10^3 (test code = 704-7) 0.04 10*3/uL 0.00-0.10 Lab Interpretation (test code = 51962-5) Abnormal [facility]. METABOLIC PANEL (05590)2023-01-15 06:02:07* Test Item Value Reference Range Interpretation Comme nts NA (test code = 8009781482) 143 mmol/L 135-145 K (test code = 0363464585) 3.7 mmol/L 3.5-5.0 CL (test code = 3830683446) 104 mmol/L 98-108 CO2 TOTAL (test code = 6623635276) 29 mmol/L 23-31 AGAP (test code = 2020442828) 10 2-16 BUN (test code = 6324393994) 19 mg/dL 7-23 GLUCOSE (test code = 7339241335) 104 mg/dL 70-110 CREATININE (test code = 1644694005) 0.80 mg/dL 0.50-1.04 TOTAL BILI (test code = 8427389970) 0.4 mg/dL 0.1-1.1 CALCIUM (test code = 2830068030) 9.6 mg/dL 8.6-10.6 T PROTEIN (test code = 6671128903) 7.7 g/dL 6.3-8.2 ALBUMIN (test code = 3453530746) 4.6 g/dL 3.5-5.0 ALK PHOS (test code = 4253364751) 59 U/L 34-122 ALTv (test code = 1742-6) 17 U/L 5-35 AST(SGOT) (test code = 8178942028) 24 U/L 13-40 eGFR (test code = 4470550125) 93.4 mL/min/1.73m2 BREANNA (test code = BREANNA) [...] or urine or abnormalities in imaging tests). [facility] WITH [id number] 05:49:10* Test Item Value Reference Range Interpretation Comme nts WBC (test code = 6690-2) 10.32 See_Comment [Automated [employer]worx] The system which generated this result transmitted reference range: 4.50 - 13.50 10*3/?L. The reference range was not used to interpret this result as normal/abnormal. RBC (test code = 789-8) 4.03 See_Comment L [Automated [employer]] The system which generated this result transmitted [...] 34.0 g/dL 32.0-36.0 RDW-SD (test code = 07318-8) 43.1 fL 38.5-49.0 RDW-CV (test code = 788-0) 12.2 % 11.5-14.0 PLT (test code = 777-3) 269 See_Comment [Automated [employer]] The system which generated this result transmitted reference range: 135 - 361 10*3/?L. The reference range was not used to interpret this result as normal/abnormal. MPV (test code = 32837-5) 10.2 fL 9.4-13.3 NRBC/100 WBC (test code = 4320885267) 0.0 See_Comment [Automated me ssage] The system which generated this result transmitted reference range: 0.0 - 10.0 /100 WBCs. The reference range was not used to interpret this result as normal/abnormal. NRBC x10^3 (test code = 1969981094) See_Comment [Automated messa ge] The system which generated this result transmitted reference range: 10*3/?L. The reference range was not used to interpret this result as normal/abnormal. GRAN MAT (NEUT) % (test code = 770-8) 76.5 % IMM GRAN % (test code = 3546637206) 0.30 % LYMPH % (test code = 736-9) 14.8 % MONO % (test code = 5905-5) 8.2 % EOS % (test code = 713-8) 0.0 % BASO % (test code = 706-2) 0.2 % GRAN MAT x10^3(ANC) (test code = 3489249529) 7.89 10*3/uL 1.50-10.30 IMM GRAN x10^3 (test code = 2285937450) 0.03 10*3/uL 0.00-0.06 LYMPH x10^3 (test code = 731-0) 1.53 10*3/uL 0.70-7.40 MONO x10^3 (test code = 742-7) 0.85 10*3/uL 0.00-0.50 H EOS x10^3 (test code = 711-2) 0.00-0.40 BASO x10^3 (test code = 704-7) 0.00-0.10 Lab Interpretation (test code = 82072-2) Abnormal [facility] (91616)2023-01-13 21:14:31* Test Item Value Reference Range Interpretation Comme nts NA (test code = 4007408899) 142 mmol/L 135-145 K (test code = 3619890124) 3.3 mmol/L 3.5-5.0 L CL (test code = 0961938689) 105 mmol/L 98-108 CO2 TOTAL (test code = 6423945465) 18 mmol/L 23-31 L AGAP (test code = 9755935867) 19 2-16 H BUN (test code = 4855271183) 14 mg/dL 7-23 GLUCOSE (test code = 3349193111) 161 mg/dL 70-110 H CREATININE (test code = 0984091946) 0.72 mg/dL 0.50-1.04 TOTAL BILI (test code = 8543211331) 0.6 mg/dL 0.1-1.1 CALCIUM (test code = 6430200945) 10.4 mg/dL 8.6-10.6 T PROTEIN (test code = 0896214296) 8.4 g/dL 6.3-8.2 H ALBUMIN (test code = 3805242310) 4.9 g/dL 3.5-5.0 ALK PHOS (test code = 1159377700) 72 U/L 34-122 ALTv (test code = 1742-6) 33 U/L 5-35 AST(SGOT) (test code = 6681757809) 26 U/L 13-40 eGFR (test code = 8614914691) 105.5 mL/min/1.73m2 BREANNA (test code = BREANNA) [...] imaging tests). Lab Interpretation (test code = 23611-0) [facility]normal [facility]2023-[facility]-20 21:06:28* Test Item Value Reference Range Interpretation Comme nts LIPASE (test code = 0109125567) 28 U/L 0-220 Lab Interpretation (test cod e = 14754-5) Normal [facility] WITH [id number] 20:55:10* Test Item Value Reference Range Interpretation [...] 35.5 g/dL 32.0-36.0 RDW-SD (test code = 17300-3) 40.0 fL 38.5-49.0 RDW-CV (test code = 788-0) 12.0 % 11.5-14.0 PLT (test code = 777-3) 308 See_Comment [Automated message] The system which generated this result transmitted reference range: 135 - 361 10*3/?L. The reference range was not used to interpret this result as normal/abnormal. MPV (test code = 06472-4) 10.8 fL 9.4-13.3 NRBC/100 WBC (test code = 0928736673) 0.0 See_Comment [Automated message] The system which generated this result transmitted reference range: 0.0 - 10.0 /100 WBCs. The reference range was not used to interpret this result as normal/abnormal. NRBC x10^3 (test code = 3596835607) See_Comment [Automated message] The system which generated this result transmitted reference range: 10*3/?L. The reference range was not used to interpret this result as normal/abnormal. GRAN MAT (NEUT) % (test code = 770-8) 88.1 % IMM GRAN % (test code = 3126284737) 0.30 % LYMPH % (test code = 736-9) 6.7 % MONO % (test code = 5905-5) 4.7 % EOS % (test code = 713-8) 0.0 % BASO % (test code = 706-2) 0.2 % GRAN MAT x10^3(ANC) (test code = 3760286126) 10.65 10*3/uL 1.50-10.30 H IMM GRAN x10^3 (test code = 0871531279) 0.04 10*3/uL 0.00-0.06 LYMPH x10^3 (test code = 731-0) 0.81 10*3/uL 0.70-7.40 MONO x10^3 (test code = 742-7) 0.57 10*3/uL 0.00-0.50 H EOS x10^3 (test code = 711-2) 0.00-0.40 BASO x10^3 (test code = 704-7) 0.03 10*3/uL 0.00-0.10 Lab Interpretation (test code = 51467-0) Abnormal [facility] [id number] 20:47:00* Test Item Value Reference Range Interpretation Comme nts POCT PREG (test code = 1605) Negative On board controls acceptable with C Line (test code = 3574) Yes POCT PREG LOT # (test code = 3575) [id number] POCT PREG TEST DATE ( test code = 3576) 2024-05-29 Lab Interpretation (test cod e = 30137-6) Normal [facility] WITH [id number] 02:16:05* Test Item Value Reference Range Interpretation [...] 34.3 g/dL 32.0-36.0 RDW-SD (test code = 04079-2) 42.6 fL 38.5-49.0 RDW-CV (test code = 788-0) 12.4 % 11.5-14.0 PLT (test code = 777-3) 339 See_Comment [Automated message] The system which generated this result transmitted reference range: 135 - 361 10*3/?L. The reference range was not used to interpret this result as normal/abnormal. MPV (test code = 30245-4) 10.8 fL 9.4-13.3 NRBC/100 WBC (test code = 5646233509) 0.0 See_Comment [Automated message] The system which generated this result transmitted reference range: 0.0 - 10.0 /100 WBCs. The reference range was not used to interpret this result as normal/abnormal. NRBC x10^3 (test code = 6128642075) See_Comment [Automated message] The system which generated this result transmitted reference range: 10*3/?L. The reference range was not used to interpret this result as normal/abnormal. GRAN MAT (NEUT) % (test code = 770-8) 88.1 % IMM GRAN % (test code = 6818409949) 0.50 % LYMPH % (test code = 736-9) 5.7 % MONO % (test code = 5905-5) 5.2 % EOS % (test code = 713-8) 0.2 % BASO % (test code = 706-2) 0.3 % GRAN MAT x10^3(ANC) (test code = 5120432646) 15.48 10*3/uL 1.50-10.30 H IMM GRAN x10^3 (test code = 0982343189) 0.08 10*3/uL 0.00-0.06 H LYMPH x10^3 (test code = 731-0) 1.01 10*3/uL 0.70-7.40 MONO x10^3 (test code = 742-7) 0.92 10*3/uL 0.00-0.50 H EOS x10^3 (test code = 711-2) 0.04 10*3/uL 0.00-0.40 BASO x10^3 (test code = 704-7) 0.06 10*3/uL 0.00-0.10 Lab Interpretation (test code = 17750-2) [facility]normal [facility]2023-06-25 01:53:23* Test Item Value Reference Range Interpretation Comme nts MAGNESIUM (test code = 5258623320) 1.8 mg/dL 1.7-2.4 Lab Interpretation (test cod e = 02306-4) Normal [facility] MET[facility]OLIC PANEL (01347)2022-11-18 01:53:02* Test Item Value Reference Range Interpretation Comme nts NA (test code = 8427924929) 144 mmol/L 135-145 K (test code = 9748955106) 3.6 mmol/L 3.5-5.0 CL (test code = 4554157994) 106 mmol/L 98-108 CO2 TOTAL (test code = 2990203136) 22 mmol/L 23-31 L AGAP (test code = 2444206393) 16 2-16 BUN (test code = 9609090517) 9 mg/dL 7-23 GLUCOSE (test code = 4712957558) 146 mg/dL 70-110 H CREATININE (test code = 9477826909) 0.72 mg/dL 0.50-1.04 TOTAL BILI (test code = 1045099747) 0.7 mg/dL 0.1-1.1 CALCIUM (test code = 8769575453) 10.0 mg/dL 8.6-10.6 T PROTEIN (test code = 9219675835) 7.9 g/dL 6.3-8.2 ALBUMIN (test code = 0419426713) 4.7 g/dL 3.5-5.0 ALK PHOS (test code = 1049319557) 80 U/L 34-122 ALTv (test code = 1742-6) 18 U/L 5-35 AST(SGOT) (test code = 3893757720) 22 U/L 13-40 eGFR (test code = 9608672669) 105.5 mL/min/1.73m2 BREANNA (test code = BREANNA) [...] imaging tests). Lab Interpretation (test code = 67872-2) [facility]normal [facility]23-[facility]-25 01:52:42* Test Item Value Reference Range Interpretation Comme nts LIPASE (test code = 3828120106) 36 U/L 0-220 Lab Interpretation (test cod e = 54703-6) [facility] [id number] 01:00:00* Test Item Value Reference Range Interpretation Comme nts POCT PREG (test code = 1605) Negative On board controls acceptable with C Line (test code = 3574) Yes Lab Interpretation (test cod e = 38633-5) Normal [facility] WITH [id number] 16:20:58* Test Item Value Reference Range Interpretation Comme nts WBC (test code = 6690-2) 9.56 See_Comment [Automated SMR SITEa [employer]an[employer]] The system which generated this result transmitted reference range: 4.50 - 13.50 10*3/?L. The reference range was not used to interpret this result as normal/abnormal. RBC (test code = 789-8) 4.36 See_Comment [Automated SMR SITEa ge] The system which generated this result [...] 34.0 g/dL 32.0-36.0 RDW-SD (test code = 18117-4) 42.1 fL 38.5-49.0 RDW-CV (test code = 788-0) 12.1 % 11.5-14.0 PLT (test code = 777-3) 273 See_Comment [Automated SMR SITEa ge] The system which generated this result transmitted reference range: 135 - 361 10*3/?L. The reference range was not used to interpret this result as normal/abnormal. MPV (test code = 69444-5) 10.6 fL 9.4-13.3 NRBC/100 WBC (test code = 4849454535) 0.0 See_Comment [Automated me ssage] The system which generated this result transmitted reference range: 0.0 - 10.0 /100 WBCs. The reference range was not used to interpret this result as normal/abnormal. NRBC x10^3 (test code = 8089062787) See_Comment [Automated messa ge] The system which generated this result transmitted reference range: 10*3/?L. The reference range was not used to interpret this result as normal/abnormal. GRAN MAT (NEUT) % (test code = 770-8) 84.4 % IMM GRAN % (test code = 2526133017) 0.40 % LYMPH % (test code = 736-9) 11.7 % MONO % (test code = 5905-5) 3.2 % EOS % (test code = 713-8) 0.1 % BASO % (test code = 706-2) 0.2 % GRAN MAT x10^3(ANC) (test code = 9077774304) 8.06 10*3/uL 1.50-10.30 IMM GRAN x10^3 (test code = 7206063501) 0.04 10*3/uL 0.00-0.06 LYMPH x10^3 (test code = 731-0) 1.12 10*3/uL 0.70-7.40 MONO x10^3 (test code = 742-7) 0.31 10*3/uL 0.00-0.50 EOS x10^3 (test code = 711-2) 0.00-0.40 BASO x10^3 (test code = 704-7) 0.00-0.10 Lab Interpretation (test code = 98331-1) [facility]normal [facility] [id number] 15:13:00* Test Item Value Reference Range Interpretation Comme nts POCT PREG (test code = 1605) Negative On board controls acceptable with C Line (test code = 3574) Yes POCT PREG LOT # (test code = 3575) HCG [id number] POCT PREG TEST DATE (test code = 3576) 01/02/2024 Lab Interpretation (test cod e = 00924-2) [facility] [id number] 06:05:00* Test Item Value Reference Range Interpretation Comme nts POCT PREG (test code = 1605) Negative On board controls acceptable with C Line (test code = 3574) Positive POCT PREG LOT # (test code = 3575) [id number] POCT PREG TEST DATE ( test code = 3576) 08/25/2023 Lab Interpretation (test cod e = 16838-7) Normal [facility] Notes Date/Time Note Provider Source 2024-09-08 09:26:56 [...] with steady gait, in no apparent distress. [facility] 2024-09-08 07:53:01 Pt arrived ambulatory with mother for abdominal pain since this morning. Pt started her period this morning. Denies smoking weed recently [employer] Tawanna Vicente RN [facility] 2024-09-06 09:09:36 Pt still not in WR. Pt left before disposition [employer] Tawanna Vicente RN [facility] 2024-09-06 08:37:58 Physician to WR with PO fluids to PO challenge and patient not found in WR. [facility] 2024-09-06 07:58:06 Patient states: "This morning I started having vomiting, chills and diarrhea" Linda Alcaraz RN [facility] 2024-09-06 07:51:00 [facility] Emergency Department Note Patient Name: Harlan Ayala Date of : 2005 19 year old female Treatment Room: WA1/WA1 Primary Care Physician: Kristopher Miramontes Patient Escorted [...] signed by: Marylou Amaya DO 09/06/24 0910 [facility] 2023-02-10 18:15:53 Formatting of this n ote might be different from the original. Pt wanting to leave. Advised that MD was typing up discharge if she wanted to wait for paperwork. Pt said she was not and would be going [facility] Pt left ER ambulatory, no signs of distress. [facility] Linda Alcaraz RN [facility] 2023-02-10 15:05:54 Formatting of this n ote might be different from the original. Pt c/o chest pain. Dr. Posey notified. EKG completed and turned into him. [facility] 2023-02-10 13:01:51 Formatting of this n ote might be different from the original. Harlan Ayala is a 17 year old female c/o n/v x 3 and "fishy" taste in mouth, denies other symptoms Rocio Rowe RN [facility] - Health 2023-02-10 12:56:00 Formatting of this n ote is different from the original. [facility] Emergency Department Note Demographics Patient Name: Harlan Ayala Date of : 2005 17 year old Treatment Room: [place] [address] Primary Care Physician: Kristopher Miramontes Pre Hospital Care Patient Escorted by: Self [9] Mode of Arrival: Personal means [1] EMS Treatment Prior to ED Arrival: CIRCULAR [facility] STONE treatment: None ED Events Date/Time Event User [...] 0.00 - 0.10 10*3/uL COMP. METABOLIC PANEL (75999) - Abnormal NA 140 135 - 145 [...] No evidence of ovarian torsion. RL: 4231 [facility]: [id number] End of Report ABDOMEN PELVIS W CONTRAST [...] TORSION CBC WITH DIFF COMP. METABOLIC PANEL (06015) URINALYSIS URINE DRUG (IMMUNOASSAY) - COMPREHENSIVE DRUG [...] file Luis Carlos Posey MD, FACEP, FAAEM [facility] #[id number] Luis Carlos Posey MD 02/10/23 1815 [facility] 2023-01-15 04:34:04 Formatting of this n ote [...] to follow up with pcp and or PR[facility] W[facility]ER Advised to seek medical attention for new/prolonged/worsening of symptoms, Symptoms improved No adverse reaction to meds given in ER noted upon discharge PIV d'cd, dressing to site, catheter in tact. Awake, alert oriented, resp reg unlabored, skin w/d, pt leaving amb with steady gait, in no apparent distress, Lianet Lora RN [facility] 2023-01-15 01:12:07 Formatting of this n ote might be different from the original. Gave report MONIKA Lora. Juanita Yates RN [facility] 2023-01-14 23:10:59 Formatting of this n ote [...] smoked marijuana this morning. Tawanna Vicente RN [facility] 2023-01-14 23:02:00 Formatting of this n ote is different from the original. [facility] Emergency Department Note Patient Name: Harlan Ayala Date of : 2005 17 year old female Treatment Room: [place] [address] Primary Care Physician: Kristopher Miramontes Patient Escorted by: Family [5] Mode of Arrival: Personal means [1] EMS Treatment Prior to ED Arrival: CIRCULAR SAWYER STONE treatment: None Travel and Exposure Screening: Symptoms [...] SQ EPITH 5 HPF COMP. METABOLIC PANEL (62173) NA 143 135 - 145 mmol/L K [...] TORSION CBC WITH DIFF COMP. METABOLIC PANEL (53343) URINALYSIS Orders Placed This Encounter Medications ketorolac [...] or significant free fluid. RL: 460 AFC: 76763 Course as of 01/15/23414Jan 15, 2023 0406 [...] on file 2. Contact information for follow-up [facility] Specialty: Obstetrics & Gynecology [address] [place] [address], [address] [facility] [address] Instructions: As needed Kristopher Miramontes Specialty: IM-INTERNAL MEDICINE Relationship: PCP - General [place] [address] Instructions: As needed 3. macrobid for UTI 4. Return to ER if symptoms should worsen or fail to improve within 72 hours. Follow up with primary care provider within 48-72 hours. Take all medications as prescribed. Stay adequately hydrated. Joy Andrews M.D., FACEP Emergency Medicine [facility] 2023-01-14 13:38:14 Formatting of this n ote [...] noted. Accompanied by mother. Lauren Aguayo RN [facility] 2023-01-14 11:42:27 Formatting of this n ote might be different from the original. Harlan Ayala is a 17 year old female c/o abdominal pain since yesterday, n/v x2, states seen in ER yesterday for same, did not get meds filled from pharmacy Rocio Rowe RN [facility] 2023-01-13 19:08:07 Formatting of this n ote [...] in no apparent distress. Rocio Jones RN [facility] 2023-01-13 14:43:24 Formatting of this n ote might be different from the original. Patient asking for water, informed patient that since she is vomiting she cannot have water. Dianne Chatterjee RN [facility] 2023-01-13 14:32:19 Formatting of this n ote might be different from the original. Pt arrived via private car with c/o abd pain and vomiting that started last night. States used her inhaler last night. Shania Farah RN [facility]
[2024-10-15] MEDS ORDERED: KETOROLAC 30 MG/ML INJ ONE (15:30)
[2024-10-15] MEDS ORDERED: DIAZEPAM 5 MG TABLET ONE (15:31)
--- NOTE | 2024-10-15 16:27 | ER ---
Nurse's Notes [facility] Name: Arianna Ayala Age: 19 yrs Sex: Female : 2005 Arrival Date: 10/15/2024 Time: 12:48 Bed 11 Private MD: Diagnosis: Noncardiac chest pain Presentation: 10/15 13:12 Chief complaint: Patient states: L sided CP and L arm pain for 3 days, 3rd visit for ll1 the same. Coronavirus screen: Client denies travel out of the [place] in the last 14 days. At this time, the client does not indicate any symptoms associated with coronavirus-19. Ebola Screen: Patient denies travel to an Ebola-affected area in the 21 days before illness onset. Initial Sepsis Screen: Does the patient meet any 2 criteria? No. Patient's initial sepsis screen is negative. Does the patient have a suspected source of infection? No. Patient's initial sepsis screen is negative. Risk Assessment: Do you want to hurt yourself or someone else? Patient reports no desire to harm self or others. Onset of symptoms was October 13, 2024. 13:12 Method Of Arrival: Wheelchair ll1 13:12 Acuity: DAVE 4 ll1 Triage Assessment: 13:12 General: Appears distressed, uncomfortable, Behavior is cooperative, appropriate for ll1 age, listless. Pain: Complains of pain in L chest Pain radiates to left arm. Cardiovascular: Reports chest pain, shortness of breath. Respiratory: Reports shortness of breath. 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 - Infectious Disease History:: Denies. - Social history:: Smoking status: Patient reports the use of cigarette tobacco products, smokes .20 packs per day. Screenin:38 Abuse screen: Denies threats or abuse. Nutritional screening: No deficits noted. ap3 Tuberculosis screening: No symptoms or risk factors identified. 16:48 [facility] ED Fall Risk Assessment (Adult) History of falling in the last 3 months, ap3 including since admission No falls in past 3 months (0 pts) Confusion or Disorientation No (0 pts) Intoxicated or Sedated No (0 pts) Impaired Gait No (0 pts) Mobility Assist Device Used No (0 pt) Altered Elimination No (0 pt) Score/Fall Risk Level 0 - 2 = Low Risk Oriented to surroundings, Maintained a safe environment, Educated pt \T\ family on fall prevention, incl call for assistance when getting out of bed, Assessed \T\ reinforced patient's understanding of fall precautions, Hourly rounding (assess needs \T\ fall precautionary measures) done, Used ambulatory aids as needed (educated on \T\ assisted with). Assessment: 15:21 Reassessment: Patient and/or family updated on plan of care and expected duration. Pain ap3 level reassessed. 15:38 General: Appears comfortable, Behavior is calm, cooperative, appropriate for age. Pain: ap3 Complains of pain in chest. Neuro: Level of Consciousness is awake, alert, obeys commands, Oriented to person, place, time, situation, Appropriate for age. Cardiovascular: Reports chest pain, Patient's skin is warm and dry. Respiratory: Airway is patent Respiratory effort is even, unlabored. Vital Signs: 13:12 BP 154 / 79; Pulse 61; Resp 16; Temp 97.6; Pulse Ox 100% ; Weight 49.9 kg; Height 5 ft. ll1 8 in. ; Pain 10/10; 15:37 BP 124 / 88; Pulse 58; Resp 17; Pulse Ox 100% on R/A; ap3 16:49 BP 107 / 63; Pulse 69; Resp 17; Pulse Ox 97% on R/A; ap3 13:12 Body Mass Index 16.73 (49.90 kg, 172.72 cm) ll1 13:12 Pain Scale: Adult ll1 ED Course: 12:53 Patient arrived in ED. mr 13:02 Jennifer Barbosa PA-C is PHCP. sb4 13:02 Guanakito Rosado MD is Attending Physician. sb4 13:14 Triage completed. ll1 13:14 Arm band placed on. ll1 15:21 Patient placed in an exam room, on a stretcher. ap3 16:26 Elia Luceor DO is Referral Physician. sb4 16:48 No provider procedures requiring assistance completed. Patient did not have IV access ap3 during this emergency room visit. 16:49 Patient has correct armband on for positive identification. Bed in low position. Call ap3 light in reach. Side rails up X2. Provided Education on: discharge instructions . Administered Medications: 15:37 Drug: Ketorolac IM 30 mg IM once Route: IM; Site: left deltoid; ap3 16:50 Follow up: Response: No adverse reaction; Pain is decreased ap3 15:37 Drug: Diazepam PO 10 mg PO once Route: PO; ap3 16:50 Follow up: Response: No adverse reaction; Anxiety decreased ap3 Medication: 16:49 VIS not applicable for this client. ap3 Outcome: 16:26 Discharge ordered by . sb4 16:49 Discharged to home ambulatory, ap3 16:49 Condition: good 16:49 Discharge instructions given to patient, Instructed on discharge instructions, follow up and referral plans. Demonstrated understanding of instructions, follow-up care, 16:50 Patient left the ED. ap3 Signatures: Sonia Chatterjee, Reg Reg mr Veronica Rice RN RN ap3 Janee Lozano RN RN ll1 Jennifer Barbosa PA-C PALila sb4
--- NOTE | 2024-10-15 16:27 | EDPHYS ---
Physician Documentation [facility] Name: Arianna Ayala Age: 19 yrs Sex: Female : 2005 Arrival Date: 10/15/2024 Time: 12:48 Bed 11 Private MD: ED Physician Guanakito Rosado HPI: 10/15 13:30 This 19 yrs old Female presents to ER via Wheelchair with complaints of Shortness Of sb4 Breath, Chest Pain. 17:15 left sided chest pain for 3 hours. 3rd visit for same complaint in 24 hours, had full sb4 workup that was negative states her pain is a 12 out of 10. . 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 - Infectious Disease History:: Denies. - Social history:: Smoking status: Patient reports the use of cigarette tobacco products, smokes .20 packs per day. ROS: 17:15 Constitutional: Negative for fever, chills, and weight loss, sb4 17:15 Cardiovascular: Positive for chest pain, 17:15 All other systems are negative, Exam: 17:15 Head/Face: Normocephalic, atraumatic. Eyes: Extra-ocular motions intact. Periorbital sb4 areas with no swelling, redness, or edema. ENT: Mucous membranes moist. Cardiovascular: Regular rate and rhythm with a normal S1 and S2. Respiratory: No increased work of breathing, no retractions or nasal flaring. Skin: Warm, dry with normal turgor. Normal color with no rashes, no lesions, and no evidence of cellulitis. 17:15 Constitutional: The patient appears alert, awake, anxious, restless, crying Vital Signs: 13:12 BP 154 / 79; Pulse 61; Resp 16; Temp 97.6; Pulse Ox 100% ; Weight 49.9 kg; Height 5 ft. ll1 8 in. ; Pain 10/10; 15:37 BP 124 / 88; Pulse 58; Resp 17; Pulse Ox 100% on R/A; ap3 16:49 BP 107 / 63; Pulse 69; Resp 17; Pulse Ox 97% on R/A; ap3 13:12 Body Mass Index 16.73 (49.90 kg, 172.72 cm) ll1 13:12 Pain Scale: Adult ll1 MDM: 13:02 Medical Screening Exam initiated sb4 17:15 Data reviewed: vital signs, nurses notes, and as a result, I will discharge patient. sb4 External Records Reviewed: Outpatient record: labs, radiology images, and notes from 2 prior visits- normal troponin, cxr, ekg. Administered Medications: 15:37 Drug: Ketorolac IM 30 mg IM once Route: IM; Site: left deltoid; ap3 16:50 Follow up: Response: No adverse reaction; Pain is decreased ap3 15:37 Drug: Diazepam PO 10 mg PO once Route: PO; ap3 16:50 Follow up: Response: No adverse reaction; Anxiety decreased ap3 Disposition: 22:02 Co-signature as Attending Physician, Guanakito Rosado MD I agree with the assessment and glenda plan of care. Disposition Summary: 10/15/24 16:26 Discharge Ordered Notes: Location: Home sb4 Problem: an ongoing problem sb4 Symptoms: are resolved sb4 Condition: Stable sb4 Diagnosis - Noncardiac chest pain sb4 Followup: sb4 - With: Elia Lucero, DO - When: 1 week - Reason: Recheck today's complaints, Re-evaluation by your physician Discharge Instructions: - Discharge Summary Sheet sb4 Forms: - Patient Portal Instructions sb4 - Leadership Thank You Letter sb4 Signatures: Guanakito Rosado MD MD cha Prokisch, Amanda RN RN ap3 Janee Lozano RN RN ll1 Jennifer Barbosa PALila PALila sb4
[2024-10-15 17:18] VITALS: TEMP 97.6
[2024-10-15 17:21] VITALS: BP 107/63; O2SAT 97
== END 2024-10-15 16:50 | disposition home or self-care (01) ==
LOC: ER 12:48
DX: R07.89 Other chest pain (principal); F17.210 Nicotine dependence, cigarettes, uncomplicated
CPT/HCPCS: 96372; 99284